=== PATIENT | female | born 1955 | race Caucasian/White ===

== ENCOUNTER → 2016-03-09 | Emergency (ER) | payer MEDICAID ==
[~2016-03-09] VITALS: Ht 162.6 cm; Wt 88.5 kg
[~2016-03-09] MED LIST: CT SWABBABLE VALVE TRANS SET 1 EA INFUS.SET MC ONE; HYDROMORPHONE INJ 2 MG/ML DISP.SYRIN IV ONE; HYDROMORPHONE INJ 2 MG/ML DISP.SYRIN ONE; IOHEXOL-350 100 ML VIAL IV ONE; IV NS 0.9% 250 ML IV ONE; KETOROLAC TROMETHAMINE INJ 30 MG/ML VIAL IV ONE; KETOROLAC TROMETHAMINE INJ 30 MG/ML VIAL ONE; ONDANSETRON HCL/PF 4 MG/2 ML VIAL IVP ONE; ONDANSETRON HCL/PF 4 MG/2 ML VIAL ONE
[2016-03-09 02:09] LABS: BASOPHILS % (AUTO) 0.5 % (0.0-2.0); DIFF TOTAL % 100 %; EOSINOPHILS % (AUTO) 12.9 % (0.0-6.0); HEMATOCRIT 38 % (33-45); HEMOGLOBIN 12.6 g/dL (11.5-14.8); LYMPHOCYTES # (AUTO) 2.7 /CMM (0.8-4.8); LYMPHOCYTES % (AUTO) 35.7 % (20.0-44.0); MEAN CORPUSCULAR HEMOGLOBIN 28 PG (26.0-33.0); MEAN CORPUSCULAR HGB CONC 33 g/dl (31.0-36.0); MEAN CORPUSCULAR VOLUME 84 fL (82-100); MONOCYTES # (AUTO) 0.5 /CMM (0.1-1.30); MONOCYTES % (AUTO) 6.1 % (2.0-12.0); NEUTROPHILS # (AUTO) 3.4 /CMM (1.8-8.9); NEUTROPHILS % (AUTO) 44.8 % (43.0-81.0); PLATELET COUNT (AUTO) 82 /CMM (150-450); RED BLOOD CELL COUNT(AUTO) 4.53 MIL/uL (4.0-5.2); WHITE BLOOD COUNT (AUTO) 7.6 K/uL (4.3-11.0)
[2016-03-09 02:26] LABS: CALCIUM, SERUM 8.4 mg/dL (8.5-10.1); CREATININE 0.6 mg/dL (0.6-1.3); POTASSIUM 3.7 mmol/L (3.5-5.1)
[2016-03-09 02:31] LABS: ALBUMIN 3.5 g/dL (3.4-5.0); BILIRUBIN,DIRECT 0.1 mg/dL (0.0-0.2); BILIRUBIN,TOTAL 0.4 mg/dL (0.2-1.0); INDIRECT BILIRUBIN 0.3 mg/dL (0.0-1.1); TOTAL PROTEIN, SERUM 7.6 g/dL (6.4-8.2)
[2016-03-09 03:24] LABS: KETONES,URINE NEGATIVE (NEGATIVE); LEUKOCYTE ESTERASE ,URINE NEGATIVE (NEGATIVE)
[2016-03-09 03:34] LABS: ADD UA MICROSCOPIC YES
[2016-03-09 03:44] LABS: ADD URINE CULTURE YES
[2016-03-09 03:45] LABS: RBC,URINE 0-2 /HPF (0-2)
[2016-03-09 04:03] LABS: ANISOCYTOSIS 1+; BAND % (MANUAL) 2 % (0.0-5.0); BASOPHILS % (MANUAL) 0 % (0.0-2.0); EOSINOPHILS % (MANUAL) 7 % (0-4); LYMPHOCYTES % (MANUAL) 35 % (16-48); PLATELET ESTIMATE DECREASED
[2016-03-09 06:33] LABS: INR 0.97 (0.87-1.13); PROTHROMBIN TIME 10.5 SECS (9.5-12.7)
[2016-03-09 06:46] VITALS: BP 131/66
== END | disposition home or self-care (01) ==
LOC: ER 00:47
DX: R10.11 Right upper quadrant pain (principal); D69.6 Thrombocytopenia, unspecified; K74.60 Unspecified cirrhosis of liver
CPT/HCPCS: 36415; 71010-TC; 76705-TC; 80048-TC; 80076-TC; 81000-TC; 83690-TC; 85025-TC; 85378-TC; 85385-TC; 85610-TC; 87086-TC; A4606; J1170; J1885; J2405; J7050; Q9967; Z7610

== ENCOUNTER 2016-04-14 23:20 | Emergency (ER) | payer MEDICAID, OTHER ==
[~2016-04-14] VITALS: Ht 162.6 cm; Wt 86.2 kg
[2016-04-14] MEDS ORDERED: IV NS 0.9% 500 ML IV ONE (23:51)
[2016-04-14] MEDS ORDERED: ONDANSETRON HCL/PF 4 MG/2 ML VIAL ONE (23:51)
[2016-04-14] MEDS ORDERED: MORPHINE SULFATE INJ 2 MG/ML DISP.SYRIN ONE (23:51)
[2016-04-14] MEDS ORDERED: IV SET PRIMARY 1 EA INFUS.SET MC ONE (23:51)
[2016-04-14 23:59] LABS: BASOPHILS % (AUTO) 0.4 % (0.0-2.0); DIFF TOTAL % 100 %; EOSINOPHILS # (AUTO) 0.6 /CMM (0.0-0.7); EOSINOPHILS % (AUTO) 7.9 % (0.0-6.0); HEMATOCRIT 40 % (33-45); LYMPHOCYTES # (AUTO) 2.9 /CMM (0.8-4.8); LYMPHOCYTES % (AUTO) 37.5 % (20.0-44.0); MEAN CORPUSCULAR HEMOGLOBIN 28 PG (26.0-33.0); MEAN CORPUSCULAR HGB CONC 33 g/dl (31.0-36.0); MEAN CORPUSCULAR VOLUME 84 fL (82-100); MONOCYTES # (AUTO) 0.5 /CMM (0.1-1.30); MONOCYTES % (AUTO) 6.5 % (2.0-12.0); NEUTROPHILS # (AUTO) 3.7 /CMM (1.8-8.9); NEUTROPHILS % (AUTO) 47.7 % (43.0-81.0); PLATELET COUNT (AUTO) 89 /CMM (150-450); RED BLOOD CELL COUNT(AUTO) 4.71 MIL/uL (4.0-5.2); WHITE BLOOD COUNT (AUTO) 7.7 K/uL (4.3-11.0)
[2016-04-15] MEDS ORDERED: ONDANSETRON HCL/PF 4 MG/2 ML VIAL IVP ONE
[2016-04-15] MEDS ORDERED: MORPHINE SULFATE INJ 2 MG/ML DISP.SYRIN IV ONE
[2016-04-15] MEDS ORDERED: IV NS 0.9% 500 ML BAG IV ONE
[2016-04-15 00:13] LABS: ALANINE AMINOTRANSFERASE 33 U/L (12-78); ALBUMIN 3.7 g/dL (3.4-5.0); ANION GAP 9 (5-14); ASPARTATE AMINOTRANSFERASE 27 U/L (15-37); BILIRUBIN,DIRECT 0.1 mg/dL (0.0-0.2); BILIRUBIN,TOTAL 0.4 mg/dL (0.2-1.0); CALCIUM, SERUM 8.7 mg/dL (8.5-10.1); CARBON DIOXIDE 31 mmol/L (21-32); CHLORIDE 105 mmol/L (98-107); CREATININE 0.6 mg/dL (0.6-1.3); GFR 101 mL/min (>60); GLUCOSE 126 mg/dL (74-106); INDIRECT BILIRUBIN 0.3 mg/dL (0.0-1.1); POTASSIUM 3.8 mmol/L (3.5-5.1); SODIUM SERUM 141 mmol/L (136-145); TOTAL PROTEIN, SERUM 7.9 g/dL (6.4-8.2); UREA NITROGEN, BLOOD 11 mg/dL (7-18)
[2016-04-15 00:16] LABS: TROPONIN I < 0.017 ng/mL (0.00-0.056)
[2016-04-15 00:26] LABS: INR 0.98 (0.87-1.13); PROTHROMBIN TIME 10.6 SECS (9.5-12.7)
[2016-04-15 00:30] LABS: EOSINOPHILS % (MANUAL) 9 % (0-4); LYMPHOCYTES % (MANUAL) 38 % (16-48); PLATELET ESTIMATE DECREASED
[2016-04-15 01:18] LABS: KETONES,URINE NEGATIVE (NEGATIVE); LEUKOCYTE ESTERASE ,URINE TRACE (NEGATIVE); PH,URINE 6.5 (5.0-8.0)
[2016-04-15 01:22] LABS: ADD UA MICROSCOPIC YES
[2016-04-15 01:28] LABS: ADD URINE CULTURE NO; RBC,URINE 0-2 /HPF (0-2)
[2016-04-15 01:36] VITALS: BP 140/70
== END 2016-04-15 01:39 | disposition home or self-care (01) ==
LOC: ER 23:25
DX: R10.84 Generalized abdominal pain (principal); K74.60 Unspecified cirrhosis of liver
CPT/HCPCS: 36415; 71010-TC; 80048-TC; 80076-TC; 81000-TC; 83690-TC; 84484-TC; 85025-TC; 85730-TC; A4606; J2270; J2405; J7040; Z7610

== ENCOUNTER 2016-07-23 15:01 | Emergency (ER) | payer OTHER ==
[~2016-07-23] VITALS: Ht 162.6 cm; Wt 102.1 kg
--- NOTE | 2016-07-23 15:10 | NUR ---
PT CAME IN FOR LEFT SIDED CHEST PAIN RADIATES TO NECK x 4 DAYS. DENIES TRAUMA. DENIES ANY OTHER SYMPTOMS. VSS. NAD NOTED. PT AAOX3. MD AT BS FOR EVAL. SAFETY AND COMFORT MEASURES PROVIDED. WILL MONITOR.
[2016-07-23] MEDS ORDERED: IBUPROFEN 400 MG TABLET ONE (15:29)
[2016-07-23] MEDS ORDERED: HYDROCODONE/APAP 5/325MG 1 EACH TABLET ONE (15:29)
[2016-07-23] MEDS ORDERED: IBUPROFEN 400 MG TABLET PO ONE (15:30)
[2016-07-23] MEDS ORDERED: HYDROCODONE/APAP 5/325MG 1 EACH TABLET PO ONE (15:30)
--- NOTE | 2016-07-23 15:37 | NUR ---
PT MEDICATED ORDERED.
--- NOTE | 2016-07-23 15:45 | NUR ---
TRUCK SERVICE TECHNICIAN AT BEDSIDE
--- NOTE | 2016-07-23 16:12 | NUR ---
DPatient discharged to home in stable condition. Written and verbal after care instructions given. Patient verbalizes understanding of instruction.
[2016-07-23 16:15] VITALS: BP 131/74
== END 2016-07-23 16:16 | disposition home or self-care (01) ==
LOC: ER 15:04
DX: M94.0 Chondrocostal junction syndrome [Tietze] (principal); K74.60 Unspecified cirrhosis of liver
CPT/HCPCS: 71010; 93005; 99284; A4606; Z7610

== ENCOUNTER 2016-10-19 00:41 | Emergency (ER) | payer OTHER ==
[~2016-10-19] VITALS: Ht 162.6 cm; Wt 89.8 kg
--- NOTE | 2016-10-19 01:40 | NUR ---
PT BIB SELF, PT C/O LEFT FLANK PAIN X 15 DAYS AND STATES THE PAIN IS MAKING HER NAUSOUS NOW, PT DENIES TRAUMA OR INJURY. PT AOX3 RR EVEN AND UNLABORED. NO SOB NOTED. NAD NOTED. NO NVD AT THIS TIME. PT GOWNED AND PLACED ON MONITOR WAITING FOR MD CEJA.
[2016-10-19 01:41] LABS: APPEARANCE,URINE CLEAR (CLEAR); BILIRUBIN,URINE 1+ (NEGATIVE); BLOOD, URINE 2+ Ery/uL (NEGATIVE); COLOR,URINE YELLOW (YELLOW); KETONES,URINE NEGATIVE (NEGATIVE); LEUKOCYTE ESTERASE ,URINE NEGATIVE (NEGATIVE); NITRITE, URINE NEGATIVE (NEGATIVE); PROTEIN,URINE TRACE mg/dl (NEGATIVE); UGLUCOSE NEGATIVE (NEGATIVE); UROBILINOGEN,URINE 0.2 EU/dL (0.2)
--- NOTE | 2016-10-19 01:45 | NUR ---
URINE COLLECTED. CALLED LAB FOR WEAPONS SYSTEM INSTRUMENT MECHANIC
[2016-10-19] MEDS ORDERED: ONDANSETRON HCL/PF 4 MG/2 ML VIAL ONE (01:51)
[2016-10-19] MEDS ORDERED: MORPHINE SULFATE INJ 4 MG/ML DISP.SYRIN ONE (01:51)
--- NOTE | 2016-10-19 01:51 | NUR ---
PT TO CT.
[2016-10-19 01:55] LABS: BACTERIA,URINE None seen /HPF (None Seen); MUCUS,URINE Few /LPF (None Seen); SQUAMOUS EPITHELIAL CELL,UR Moderate /HPF (None Seen); WBC,URINE 20-30 /HPF (0-3)
[2016-10-19 01:55] LABS: BASOPHILS % (AUTO) 0.6 % (0.0-2.0); EOSINOPHILS # (AUTO) 0.7 /CMM (0.0-0.7); EOSINOPHILS % (AUTO) 9.6 % (0.0-6.0); HEMATOCRIT 40 % (33-45); HEMOGLOBIN 13.4 g/dL (11.5-14.8); LYMPHOCYTES # (AUTO) 2.7 /CMM (0.8-4.8); LYMPHOCYTES % (AUTO) 36.2 % (20.0-44.0); MEAN CORPUSCULAR HEMOGLOBIN 28 PG (26.0-33.0); MEAN CORPUSCULAR HGB CONC 33 g/dl (31.0-36.0); MEAN CORPUSCULAR VOLUME 85 fL (82-100); MONOCYTES # (AUTO) 0.7 /CMM (0.1-1.30); MONOCYTES % (AUTO) 8.8 % (2.0-12.0); NEUTROPHILS # (AUTO) 3.4 /CMM (1.8-8.9); NEUTROPHILS % (AUTO) 44.8 % (43.0-81.0); PLATELET COUNT (AUTO) 89 /CMM (150-450); RDW COEFFICIENT OF VARIATION 14.5 (11.5-15.0); RED BLOOD CELL COUNT(AUTO) 4.73 MIL/uL (4.0-5.2); WHITE BLOOD COUNT (AUTO) 7.6 K/uL (4.3-11.0)
[2016-10-19] MEDS ORDERED: MORPHINE SULFATE INJ 2 MG/ML DISP.SYRIN IV ONE (02:00)
[2016-10-19] MEDS ORDERED: ONDANSETRON HCL/PF 4 MG/2 ML VIAL IVP ONE (02:00)
[2016-10-19] MEDS ORDERED: IV NS 0.9% 1,000 ML BAG IV ONE (02:00)
[2016-10-19 02:04] LABS: CALCIUM, SERUM 8.6 mg/dL (8.5-10.1); CREATININE 0.7 mg/dL (0.6-1.3); POTASSIUM 3.9 mmol/L (3.5-5.1)
--- NOTE | 2016-10-19 02:08 | NUR ---
PT RETURNED FROM CT.
[2016-10-19 02:10] LABS: ALBUMIN 3.8 g/dL (3.4-5.0); BILIRUBIN,DIRECT 0.1 mg/dL (0.0-0.2); BILIRUBIN,TOTAL 0.5 mg/dL (0.2-1.0)
[2016-10-19 02:49] LABS: EOSINOPHILS % (MANUAL) 8 % (0-4); LYMPHOCYTES % (MANUAL) 34 % (16-48); MONOCYTES % (MANUAL) 8 % (0-11.0); NEUTROPHILS % (MANUAL) 49 (42-76); REACTIVE LYMPHOCYTES 1 % (0-0)
--- NOTE | 2016-10-19 03:14 | NUR ---
IV removed. Catheter intact and site benign. Pressure and 4x4 applied to site. No bleeding noted. Patient discharged to home in stable condition. Written and verbal after care instructions given. Patient verbalizes understanding of instruction. ambulatory with a steady gait. instructed not to drive. pt verbalize understanding. accompanied by son
[2016-10-19 03:16] VITALS: BP 134/67
== END 2016-10-19 03:16 | disposition home or self-care (01) ==
LOC: ER 00:45
DX: M54.9 Dorsalgia, unspecified (principal); K74.60 Unspecified cirrhosis of liver
CPT/HCPCS: 36415; 71250-TC; 80048-TC; 80076-TC; 81000-TC; 83690-TC; 85025-TC; A4606; J2270; J2405; J7030; Z7610

== ENCOUNTER 2016-11-08 00:53 | Emergency (ER) | payer OTHER ==
[~2016-11-08] VITALS: Ht 167.6 cm; Wt 81.6 kg
--- NOTE | 2016-11-08 01:30 | NUR ---
PT CAME IN FOR HEADACHE X 2 DAYS WITH NAUSEA. SEEN BY MD FOR EVAL. VSS. SAFETY AND COMFORT MEASURES PROVIDED. WILL MONITOR.
--- NOTE | 2016-11-08 01:45 | NUR ---
IV ACCESS STARTED. PT MEDICATED ORDERED.
--- NOTE | 2016-11-08 02:36 | NUR ---
IV removed. Catheter intact and site benign. Pressure and 4x4 applied to site. No bleeding noted.
--- NOTE | 2016-11-08 02:37 | NUR ---
Patient discharged to home in stable condition. Written and verbal after care instructions given. Patient verbalizes understanding of instruction.
[2016-11-08 02:42] VITALS: BP 129/69
--- NOTE | 2016-11-10 07:29 | NUR ---
LATE ENTRY...........PULLED OUT MEDS ORDERED; INSTEAD OF REGLAN I TOOK OUT ZOFRAN. REACHED PT'S BEDSIDE WITH THE DOCTOR'S ORDER PAPERWORK AND WHEN I CROSS CHECKED IT ONE MORE TIME I SAW REGLAN INSTEAD OF THE ZOFRAN THAT I HAD PULLED OUT. I THEN REMEMBERED THE REGLAN I PREVIOUSLY HAD IN MY POCKET; SO I USED THAT RELGLAN TO MATCH THE ORDER AND MY INTENTION WAS TO WASTE THE ZOFRAN IN THE OMNICELL AND REMOVE THE REGLAN TO CHARGE PT BUT I FORGOT TO DO THAT.
== END 2016-11-08 02:43 | disposition home or self-care (01) ==
LOC: ER 00:54
DX: R51 Headache (principal); K74.60 Unspecified cirrhosis of liver
CPT/HCPCS: 70450-TC; A4606; J1100; J1200; J2405; J7030; J7060; Z7610

== ENCOUNTER 2017-03-29 00:58 | Emergency (ER) | payer OTHER ==
[~2017-03-29] VITALS: Ht 152.4 cm; Wt 90.7 kg
--- NOTE | 2017-03-29 01:10 | NUR ---
BB SELF FROM HOME WITH C/O OF COUGH AND CONGESTION X10 DAYS. PT STATES SHE ALSO HAS A SOAR THROAT X10 DAYS. PT ALSO STATES N/V W/ 6 EPISODES OF VOMIT SINCE YESTERDAY. PT COMPLAINS OF RLQ ABD PAIN 5/10. PT IS GOWNED AND ON THE MONITOR. RESP EVEN AND NONE LABORED. SKIN WARM AND WNL. NO S/S OF ACUTE DISTRESS NOTED. VSS. AWAITING MD FOR EVAL.
[2017-03-29] MEDS ORDERED: KETOROLAC TROMETHAMINE INJ 30 MG/ML VIAL IV ONE (01:30)
[2017-03-29] MEDS ORDERED: FAMOTIDINE/PF INJ 20 MG/2 ML VIAL IV ONE ×2 (01:30→01:49)
[2017-03-29] MEDS ORDERED: IV NS 0.9% 1,000 ML BAG IV ONE (01:30)
[2017-03-29] MEDS ORDERED: ONDANSETRON HCL/PF 4 MG/2 ML VIAL IVP ONE (01:30)
[2017-03-29] MEDS ORDERED: KETOROLAC TROMETHAMINE INJ 30 MG/ML VIAL ONE (01:49)
[2017-03-29] MEDS ORDERED: ONDANSETRON HCL/PF 4 MG/2 ML VIAL ONE (01:49)
--- NOTE | 2017-03-29 01:55 | NUR ---
Patient is resting comfortably in bed with eyes open. VSS
--- NOTE | 2017-03-29 02:00 | NUR ---
CRUTCH MAKER BEDSIDE
[2017-03-29 02:15] LABS: BASOPHILS % (AUTO) 0.4 % (0.0-2.0); EOSINOPHILS % (AUTO) 10.7 % (0.0-6.0); HEMATOCRIT 39 % (33-45); HEMOGLOBIN 13.1 g/dL (11.5-14.8); LYMPHOCYTES # (AUTO) 3.4 /CMM (0.8-4.8); LYMPHOCYTES % (AUTO) 34.6 % (20.0-44.0); MEAN CORPUSCULAR HEMOGLOBIN 28 PG (26.0-33.0); MEAN CORPUSCULAR HGB CONC 34 g/dl (31.0-36.0); MEAN CORPUSCULAR VOLUME 84 fL (82-100); MONOCYTES # (AUTO) 0.6 /CMM (0.1-1.30); MONOCYTES % (AUTO) 6.1 % (2.0-12.0); NEUTROPHILS # (AUTO) 4.7 /CMM (1.8-8.9); NEUTROPHILS % (AUTO) 48.2 % (43.0-81.0); PLATELET COUNT (AUTO) 100 /CMM (150-450); RDW COEFFICIENT OF VARIATION 13.7 (11.5-15.0); RED BLOOD CELL COUNT(AUTO) 4.61 MIL/uL (4.0-5.2); WHITE BLOOD COUNT (AUTO) 9.8 K/uL (4.3-11.0)
[2017-03-29 02:20] LABS: APPEARANCE,URINE CLEAR (CLEAR); BILIRUBIN,URINE NEGATIVE (NEGATIVE); BLOOD, URINE 2+ Ery/uL (NEGATIVE); COLOR,URINE YELLOW (YELLOW); KETONES,URINE TRACE (NEGATIVE); LEUKOCYTE ESTERASE ,URINE NEGATIVE (NEGATIVE); NITRITE, URINE NEGATIVE (NEGATIVE); PH,URINE 6.5 (5.0-8.0); PROTEIN,URINE 1+ mg/dl (NEGATIVE); UGLUCOSE NEGATIVE (NEGATIVE); UROBILINOGEN,URINE 0.2 EU/dL (0.2)
[2017-03-29 02:29] LABS: BACTERIA,URINE None seen /HPF (None Seen); SQUAMOUS EPITHELIAL CELL,UR Few /HPF (None Seen)
[2017-03-29 02:39] LABS: ALBUMIN 3.7 g/dL (3.4-5.0); BILIRUBIN,DIRECT 0.2 mg/dL (0.0-0.2); BILIRUBIN,TOTAL 0.6 mg/dL (0.2-1.0); CREATININE 0.6 mg/dL (0.6-1.3); POTASSIUM 3.6 mmol/L (3.5-5.1); TOTAL PROTEIN, SERUM 7.9 g/dL (6.4-8.2)
--- NOTE | 2017-03-29 03:39 | NUR ---
Patient discharged to home in stable condition. Written and verbal after care instructions along with Rx given. Patient verbalizes understanding of instruction.IV removed. Catheter intact and site benign. Pressure and 4x4 applied to site. No bleeding noted. Pt ambulated with steady gait out of ER.
[2017-03-29 03:40] VITALS: BP 141/94
== END 2017-03-29 03:41 | disposition home or self-care (01) ==
LOC: ER 01:01
DX: B34.9 Viral infection, unspecified (principal); J06.9 Acute upper respiratory infection, unspecified; H65.92 Unspecified nonsuppurative otitis media, left ear; R11.2 Nausea with vomiting, unspecified
CPT/HCPCS: 36415; 71045; 80048; 80076; 81001; 83690; 85025; 87070; 87804 ×2; 87880; 96361; 96374; 96375; 99285; A4606; J1885; J2405; J3490; J7030; Z7610; 81000-TC; 86403-TC; 87400

== ENCOUNTER 2017-05-23 11:49 | Emergency (ER) | payer OTHER ==
[~2017-05-23] VITALS: Ht 152.4 cm; Wt 90.7 kg
--- NOTE | 2017-05-23 12:02 | NUR ---
Patient to ed dt left flank pain, sharp, 10/10 x 2 days worst today. Patient is awake and alert, appears in no distress. Respuration evena dn unlabored. Denies nausea nor vomitting. Patient is afebrile. vss. Mrci at bs
[2017-05-23 12:14] LABS: APPEARANCE,URINE Slightly Cloudy (CLEAR); BILIRUBIN,URINE Negative (NEGATIVE); BLOOD, URINE Moderate Ery/uL (NEGATIVE); COLOR,URINE Yellow (YELLOW); KETONES,URINE Negative (NEGATIVE); LEUKOCYTE ESTERASE ,URINE Trace (NEGATIVE); NITRITE, URINE Negative (NEGATIVE); PROTEIN,URINE Trace mg/dl (NEGATIVE); UGLUCOSE Negative (NEGATIVE); UROBILINOGEN,URINE 0.2 EU/dL (0.2)
[2017-05-23] MEDS ORDERED: ONDANSETRON HCL/PF 4 MG/2 ML VIAL ONE (12:14)
[2017-05-23] MEDS ORDERED: MORPHINE SULFATE INJ 4 MG/ML DISP.SYRIN ONE (12:15)
[2017-05-23] MEDS ORDERED: IOHEXOL-300 100 ML VIAL IV ONE (12:19)
[2017-05-23 12:21] LABS: BACTERIA,URINE Few /HPF (None Seen); SQUAMOUS EPITHELIAL CELL,UR Moderate /HPF (None Seen)
[2017-05-23] MEDS ORDERED: CT SWABBABLE VALVE TRANS SET 1 EA INFUS.SET MC ONE (12:21)
[2017-05-23] MEDS ORDERED: IV NS 0.9% 250 ML IV ONE (12:21)
[2017-05-23 12:22] LABS: CALCIUM, SERUM 8.8 mg/dL (8.5-10.1); CREATININE 0.6 mg/dL (0.6-1.3)
[2017-05-23 12:25] LABS: BASOPHILS % (AUTO) 0.4 % (0.0-2.0); EOSINOPHILS % (AUTO) 8.6 % (0.0-6.0); HEMATOCRIT 39 % (33-45); HEMOGLOBIN 13.2 g/dL (11.5-14.8); LYMPHOCYTES # (AUTO) 2.2 /CMM (0.8-4.8); LYMPHOCYTES % (AUTO) 27.2 % (20.0-44.0); MEAN CORPUSCULAR HGB CONC 34 g/dl (31.0-36.0); MEAN CORPUSCULAR VOLUME 84 fL (82-100); MONOCYTES # (AUTO) 0.5 /CMM (0.1-1.30); NEUTROPHILS # (AUTO) 4.6 /CMM (1.8-8.9); NEUTROPHILS % (AUTO) 57.8 % (43.0-81.0); PLATELET COUNT (AUTO) 88 /CMM (150-450); RED BLOOD CELL COUNT(AUTO) 4.64 MIL/uL (4.0-5.2)
[2017-05-23 12:26] LABS: INR 0.96 (0.85-1.15)
[2017-05-23 12:27] LABS: ALBUMIN 3.7 g/dL (3.4-5.0); BILIRUBIN,DIRECT 0.2 mg/dL (0.0-0.2); BILIRUBIN,TOTAL 0.6 mg/dL (0.2-1.0); TOTAL PROTEIN, SERUM 7.7 g/dL (6.4-8.2)
[2017-05-23] MEDS ORDERED: IV NS 0.9% 1,000 ML BAG IV ONE (12:30)
[2017-05-23] MEDS ORDERED: ONDANSETRON HCL/PF 4 MG/2 ML VIAL IVP ONE (12:30)
[2017-05-23] MEDS ORDERED: MORPHINE SULFATE INJ 2 MG/ML DISP.SYRIN IV ONE (12:30)
[2017-05-23 12:46] LABS: NEUTROPHILS % (MANUAL) 55 (42-76)
[2017-05-23 12:47] LABS: EOSINOPHILS % (MANUAL) 10 % (0-4); LYMPHOCYTES % (MANUAL) 27 % (16-48); MONOCYTES % (MANUAL) 8 % (0-11.0)
[2017-05-23 13:32] VITALS: BP 134/80
--- NOTE | 2017-05-23 13:32 | NUR ---
Patient discharged to home in stable condition. Written and verbal after care instructions given. Patient verbalizes understanding of instruction.
== END 2017-05-23 13:34 | disposition home or self-care (01) ==
LOC: ER 11:50
DX: K57.92 Diverticulitis of intestine, part unspecified, without perforation or abscess without bleeding (principal); N39.0 Urinary tract infection, site not specified; D69.6 Thrombocytopenia, unspecified; K74.60 Unspecified cirrhosis of liver
CPT/HCPCS: 36415; 80048-TC; 80076-TC; 81000-TC; 83690-TC; 85025-TC; 85730-TC; 87086-TC; A4606; J2270; J2405; J7030; J7050; Q9967; Z7610

== ENCOUNTER 2017-06-07 12:14 | Emergency (ER) | payer OTHER ==
[~2017-06-07] VITALS: Ht 152.4 cm; Wt 90.7 kg
[2017-06-07] MEDS ORDERED: KETOROLAC TROMETHAMINE INJ 30 MG/ML VIAL ONE (12:57)
[2017-06-07] MEDS ORDERED: CYCLOBENZAPRINE 10 MG TABLET ONE (12:58)
[2017-06-07] MEDS ORDERED: TRAMADOL HCL 50 MG TABLET ONE (12:58)
[2017-06-07] MEDS: KETOROLAC TROMETHAMINE INJ 60 MG/2 ML VIAL IM ONE (13:04)
[2017-06-07] MEDS ORDERED: ONDANSETRON 4 MG TAB.RAPDIS ONE (13:06)
[2017-06-07] MEDS: ONDANSETRON 4 MG TAB.RAPDIS SL ONE (13:24)
[2017-06-07] MEDS: CYCLOBENZAPRINE 10 MG TABLET PO ONE (13:27)
[2017-06-07] MEDS: TRAMADOL HCL 50 MG TABLET PO ONE (13:27)
[2017-06-07 13:41] VITALS: BP 127/64
== END 2017-06-07 14:35 | disposition home or self-care (01) ==
LOC: ER 12:15
DX: M25.512 Pain in left shoulder (principal); R51 Headache; K74.60 Unspecified cirrhosis of liver; W01.198A Fall on same level from slipping, tripping and stumbling with subsequent striking against other object, initial encounter; Y93.89 Activity, other specified; Y92.89 Other specified places as the place of occurrence of the external cause; Y99.8 Other external cause status
CPT/HCPCS: 73030-TC; A4606; J1885; Q0162; Z7610

== ENCOUNTER 2017-08-08 03:45 | Emergency (ER) | payer OTHER ==
[2017-08-08] MEDS ORDERED: KETOROLAC TROMETHAMINE INJ 60 MG/2 ML VIAL IM ONE ×2 (06:30→06:49)
[2017-08-08] MEDS ORDERED: ONDANSETRON 4 MG TAB.RAPDIS SL ONE (06:30)
[2017-08-08] MEDS ORDERED: AMOXICILLIN TRIHYDRATE 250 MG CAPSULE PO ONE (06:30)
[2017-08-08] MEDS ORDERED: AMOXICILLIN TRIHYDRATE 250 MG CAPSULE ONE (06:49)
[2017-08-08] MEDS ORDERED: ONDANSETRON 4 MG TAB.RAPDIS ONE (06:49)
== END 2017-08-08 07:01 | disposition home or self-care (01) ==
LOC: ER 03:45
DX: K02.9 Dental caries, unspecified (principal)
CPT/HCPCS: 96372; 99283; J1885; Q0162

== ENCOUNTER 2017-10-24 21:49 | Emergency (ER) | payer OTHER ==
[~2017-10-24] VITALS: Ht 162.6 cm; Wt 90.7 kg
[2017-10-24] MEDS ORDERED: ONDANSETRON HCL/PF 4 MG/2 ML VIAL IVP ONE (23:00)
[2017-10-24] MEDS ORDERED: MORPHINE SULFATE INJ 2 MG/ML DISP.SYRIN IV ONE (23:00)
[2017-10-24] MEDS ORDERED: MAG HYDROX/AL HYDROX/SIMETH 30 ML UDC PO ONE (23:00)
[2017-10-24] MEDS ORDERED: PANTOPRAZOLE 40 MG VIAL IV ONE (23:00)
[2017-10-24] MEDS ORDERED: MAG HYDROX/AL HYDROX/SIMETH 30 ML UDC ONE (23:05)
[2017-10-24] MEDS ORDERED: ONDANSETRON HCL/PF 4 MG/2 ML VIAL ONE (23:05)
[2017-10-24] MEDS ORDERED: PANTOPRAZOLE 40 MG VIAL ONE (23:05)
[2017-10-24] MEDS ORDERED: MORPHINE SULFATE INJ 4 MG/ML DISP.SYRIN ONE (23:06)
[2017-10-24 23:11] LABS: BASOPHILS % (AUTO) 0.6 % (0.0-2.0); EOSINOPHILS % (AUTO) 11.3 % (0.0-6.0); HEMATOCRIT 38 % (33-45); HEMOGLOBIN 12.4 g/dL (11.5-14.8); LYMPHOCYTES # (AUTO) 2.3 /CMM (0.8-4.8); LYMPHOCYTES % (AUTO) 35.8 % (20.0-44.0); MEAN CORPUSCULAR HEMOGLOBIN 28 PG (26.0-33.0); MEAN CORPUSCULAR HGB CONC 32 g/dl (31.0-36.0); MEAN CORPUSCULAR VOLUME 86 fL (82-100); MONOCYTES # (AUTO) 0.5 /CMM (0.1-1.30); MONOCYTES % (AUTO) 7.9 % (2.0-12.0); NEUTROPHILS # (AUTO) 2.9 /CMM (1.8-8.9); NEUTROPHILS % (AUTO) 44.4 % (43.0-81.0); PLATELET COUNT (AUTO) 78 /CMM (150-450); RDW COEFFICIENT OF VARIATION 14.1 (11.5-15.0); RED BLOOD CELL COUNT(AUTO) 4.43 MIL/uL (4.0-5.2); WHITE BLOOD COUNT (AUTO) 6.5 K/uL (4.3-11.0)
[2017-10-24 23:24] LABS: INR 0.96 (0.87-1.13)
[2017-10-24 23:34] LABS: CALCIUM, SERUM 8.4 mg/dL (8.5-10.1); CARBON DIOXIDE 27 mmol/L (21-32); CHLORIDE 110 mmol/L (98-107); CREATININE 0.7 mg/dL (0.6-1.3); GLUCOSE 102 mg/dL (74-106); POTASSIUM 4.2 mmol/L (3.5-5.1); SODIUM SERUM 146 mmol/L (136-145); UREA NITROGEN, BLOOD 12 mg/dL (7-18)
[2017-10-24 23:39] LABS: ALANINE AMINOTRANSFERASE 34 U/L (12-78); ALBUMIN 3.4 g/dL (3.4-5.0); ALKALINE PHOSPHATASE 144 U/L (46-116); ASPARTATE AMINOTRANSFERASE 33 U/L (15-37); BILIRUBIN,DIRECT 0.1 mg/dL (0.0-0.2); BILIRUBIN,TOTAL 0.3 mg/dL (0.2-1.0); LIPASE 152 U/L (73-393); TOTAL PROTEIN, SERUM 7.1 g/dL (6.4-8.2); TROPONIN I < 0.017 ng/mL (0.00-0.056)
[2017-10-24 23:56] LABS: EOSINOPHILS % (MANUAL) 10 % (0-4); LYMPHOCYTES % (MANUAL) 36 % (16-48); MONOCYTES % (MANUAL) 3 % (0-11.0); NEUTROPHILS % (MANUAL) 51 (42-76)
[2017-10-25 01:29] VITALS: BP 142/97
== END 2017-10-25 01:31 | disposition home or self-care (01) ==
LOC: ER 21:52
DX: D69.6 Thrombocytopenia, unspecified (principal); R16.1 Splenomegaly, not elsewhere classified; R10.12 Left upper quadrant pain; E66.9 Obesity, unspecified; Z68.34 Body mass index [BMI] 34.0-34.9, adult
CPT/HCPCS: 36415; 74176; 80048; 80076; 83690; 84484; 85025; 85730; 93005; 96374; 96375; 99285; A4606; C9113; J2270; J2405; Z7610

== ENCOUNTER 2017-10-29 14:48 | Emergency (ER) | payer OTHER ==
[~2017-10-29] VITALS: Ht 162.6 cm; Wt 109.3 kg
--- NOTE | 2017-10-29 15:10 | NUR ---
L L Q ABD PAIN X 1 WEEK, RASH TO L ARM. NAD NOTED, VSS, RESP EVEN AND UNLABORED, PT WAS PUT ON MONITOR, WAITING FOR MD CEJA
[2017-10-29 16:25] LABS: BASOPHILS % (AUTO) 0.5 % (0.0-2.0); EOSINOPHILS % (AUTO) 9.9 % (0.0-6.0); HEMATOCRIT 40 % (33-45); HEMOGLOBIN 13.1 g/dL (11.5-14.8); LYMPHOCYTES # (AUTO) 2.1 /CMM (0.8-4.8); LYMPHOCYTES % (AUTO) 27.1 % (20.0-44.0); MEAN CORPUSCULAR HEMOGLOBIN 28 PG (26.0-33.0); MEAN CORPUSCULAR HGB CONC 33 g/dl (31.0-36.0); MEAN CORPUSCULAR VOLUME 84 fL (82-100); MONOCYTES # (AUTO) 0.6 /CMM (0.1-1.30); MONOCYTES % (AUTO) 7.6 % (2.0-12.0); NEUTROPHILS # (AUTO) 4.2 /CMM (1.8-8.9); NEUTROPHILS % (AUTO) 54.9 % (43.0-81.0); PLATELET COUNT (AUTO) 90 /CMM (150-450); RDW COEFFICIENT OF VARIATION 13.5 (11.5-15.0); RED BLOOD CELL COUNT(AUTO) 4.77 MIL/uL (4.0-5.2); WHITE BLOOD COUNT (AUTO) 7.7 K/uL (4.3-11.0)
[2017-10-29 16:27] LABS: APPEARANCE,URINE Clear (CLEAR); BILIRUBIN,URINE Negative (NEGATIVE); BLOOD, URINE Moderate Ery/uL (NEGATIVE); COLOR,URINE Yellow (YELLOW); KETONES,URINE Trace (NEGATIVE); LEUKOCYTE ESTERASE ,URINE Negative (NEGATIVE); NITRITE, URINE Negative (NEGATIVE); PH,URINE 5.5 (5.0-8.0); PROTEIN,URINE Negative (NEGATIVE); UGLUCOSE Negative (NEGATIVE)
[2017-10-29 16:31] LABS: BACTERIA,URINE Rare /HPF (None Seen); RBC,URINE 0-2 /HPF (0-2); WBC,URINE 0-2 /HPF (0-3)
[2017-10-29 16:32] LABS: SQUAMOUS EPITHELIAL CELL,UR Few /HPF (None Seen)
[2017-10-29 16:34] LABS: CALCIUM, SERUM 8.3 mg/dL (8.5-10.1); CREATININE 0.7 mg/dL (0.6-1.3); POTASSIUM 4.2 mmol/L (3.5-5.1)
[2017-10-29 16:40] LABS: ALBUMIN 3.5 g/dL (3.4-5.0); BILIRUBIN,DIRECT 0.1 mg/dL (0.0-0.2); BILIRUBIN,TOTAL 0.4 mg/dL (0.2-1.0); TOTAL PROTEIN, SERUM 7.1 g/dL (6.4-8.2)
[2017-10-29] MEDS ORDERED: oxyCODONE/APAP (5/325 MG) 1 UDTAB TABLET PO ONE (17:00)
[2017-10-29] MEDS ORDERED: IBUPROFEN 600 MG TABLET PO ONE ×2 (17:00→17:16)
[2017-10-29] MEDS ORDERED: oxyCODONE/APAP (5/325 MG) 1 UDTAB TABLET ONE (17:16)
[2017-10-29] MEDS ORDERED: LIDOCAINE VISCOUS 2% UD 15 ML UDC MM ONE (17:30)
[2017-10-29] MEDS ORDERED: LIDOCAINE VISCOUS 2% UD 15 ML UDC ONE (17:40)
[2017-10-29 17:56] VITALS: BP 138/95
--- NOTE | 2017-10-29 17:59 | NUR ---
Patient discharged to home in stable condition. Written and verbal after care instructions given. Patient verbalizes understanding of instruction.
[2017-10-29 18:37] LABS: BAND % (MANUAL) 6 % (0.0-5.0); EOSINOPHILS % (MANUAL) 11 % (0-4); LYMPHOCYTES % (MANUAL) 32 % (16-48); MONOCYTES % (MANUAL) 5 % (0-11.0); NEUTROPHILS % (MANUAL) 46 (42-76)
== END 2017-10-29 17:59 | disposition home or self-care (01) ==
LOC: ER 14:53
DX: R10.32 Left lower quadrant pain (principal); R11.2 Nausea with vomiting, unspecified
CPT/HCPCS: 36415; 74176; 80048; 80076; 81001; 83690; 85025; 87086; 99285; A4606; Z7610; 81000-TC

== ENCOUNTER 2017-11-09 16:41 | Emergency (ER) | payer OTHER ==
[~2017-11-09] VITALS: Ht 162.6 cm; Wt 98.9 kg
--- NOTE | 2017-11-09 16:45 | NUR ---
AAOX3, CAME TO ER C/O L SIDED HEADACHE THAT STARTED W/ NECK PAIN THAT STARTED LAST NIGHT NAUSEA AND VOMITTED 10 TIMES TODAY. RESP IS EVEN AND UNLABORED WITH NAD NOTED. AWAITING MD FOR EVAL.
[2017-11-09] MEDS ORDERED: KETOROLAC TROMETHAMINE INJ 30 MG/ML VIAL ONE (17:27)
[2017-11-09] MEDS ORDERED: METOCLOPRAMIDE HCL 10 MG/2 ML VIAL ONE (17:27)
[2017-11-09] MEDS: METOCLOPRAMIDE HCL 10 MG/2 ML VIAL IM ONE (17:31)
[2017-11-09] MEDS: KETOROLAC TROMETHAMINE INJ 30 MG/ML VIAL IM ONE (17:32)
--- NOTE | 2017-11-09 17:32 | NUR ---
PATIENT TRANSPORTED FOR CT VIA GURNEY.
--- NOTE | 2017-11-09 18:17 | NUR ---
Patient discharged to home in stable condition. Written and verbal after care instructions given. Patient verbalizes understanding of instruction.
[2017-11-09 18:18] VITALS: BP 135/81
== END 2017-11-09 18:19 | disposition home or self-care (01) ==
LOC: ER 16:45
DX: R51 Headache (principal); M54.12 Radiculopathy, cervical region
CPT/HCPCS: 70450-TC; 72125-TC; A4606; J1885; J2765; Z7610

== ENCOUNTER 2017-12-05 09:42 | Emergency (ER) | payer OTHER ==
[~2017-12-05] VITALS: Ht 149.9 cm; Wt 97.5 kg
[2017-12-05 10:18] LABS: APPEARANCE,URINE Clear (CLEAR); BILIRUBIN,URINE Negative (NEGATIVE); BLOOD, URINE Moderate Ery/uL (NEGATIVE); COLOR,URINE Yellow (YELLOW); KETONES,URINE Negative (NEGATIVE); LEUKOCYTE ESTERASE ,URINE Negative (NEGATIVE); NITRITE, URINE Negative (NEGATIVE); PH,URINE 5.5 (5.0-8.0); PROTEIN,URINE Negative (NEGATIVE); UGLUCOSE Negative (NEGATIVE); UROBILINOGEN,URINE 0.2 EU/dL (0.2)
[2017-12-05 10:19] LABS: BASOPHILS % (AUTO) 0.6 % (0.0-2.0); EOSINOPHILS % (AUTO) 11.5 % (0.0-6.0); HEMATOCRIT 43 % (33-45); HEMOGLOBIN 13.9 g/dL (11.5-14.8); LYMPHOCYTES # (AUTO) 2.1 /CMM (0.8-4.8); LYMPHOCYTES % (AUTO) 28.9 % (20.0-44.0); MEAN CORPUSCULAR HGB CONC 33 g/dl (31.0-36.0); MEAN CORPUSCULAR VOLUME 85 fL (82-100); MONOCYTES # (AUTO) 0.5 /CMM (0.1-1.30); MONOCYTES % (AUTO) 6.7 % (2.0-12.0); NEUTROPHILS # (AUTO) 3.8 /CMM (1.8-8.9); NEUTROPHILS % (AUTO) 52.3 % (43.0-81.0); PLATELET COUNT (AUTO) 87 /CMM (150-450); RDW COEFFICIENT OF VARIATION 13.3 (11.5-15.0); RED BLOOD CELL COUNT(AUTO) 4.99 MIL/uL (4.0-5.2); WHITE BLOOD COUNT (AUTO) 7.2 K/uL (4.3-11.0)
[2017-12-05 10:29] LABS: CALCIUM, SERUM 8.6 mg/dL (8.5-10.1); CREATININE 0.7 mg/dL (0.6-1.3); POTASSIUM 3.7 mmol/L (3.5-5.1)
[2017-12-05 10:32] LABS: BACTERIA,URINE Moderate /HPF (None Seen); MUCUS,URINE Many /LPF (None Seen); SQUAMOUS EPITHELIAL CELL,UR Few /HPF (None Seen); WBC,URINE 0-2 /HPF (0-3)
[2017-12-05 10:35] LABS: ALBUMIN 3.7 g/dL (3.4-5.0); BILIRUBIN,DIRECT 0.1 mg/dL (0.0-0.2); BILIRUBIN,TOTAL 0.5 mg/dL (0.2-1.0); TOTAL PROTEIN, SERUM 7.7 g/dL (6.4-8.2)
[2017-12-05] MEDS ORDERED: MAG HYDROX/AL HYDROX/SIMETH 30 ML UDC ONE (10:44)
[2017-12-05] MEDS ORDERED: LIDOCAINE VISCOUS 2% UD 15 ML UDC ONE (10:45)
[2017-12-05] MEDS ORDERED: MAG HYDROX/AL HYDROX/SIMETH 30 ML UDC PO ONE (11:00)
[2017-12-05] MEDS ORDERED: LIDOCAINE SOLN 4% 50 ML BOTTLE TP ONE (11:00)
[2017-12-05] MEDS ORDERED: LIDOCAINE VISCOUS 2% UD 15 ML UDC MM ONE (11:00)
[2017-12-05] MEDS ORDERED: MORPHINE SULFATE INJ 2 MG/ML DISP.SYRIN IV ONE (11:30)
--- NOTE | 2017-12-05 11:30 | NUR ---
updated and reiterated plan of care with Grupo (industrial staff nurse).
[2017-12-05] MEDS ORDERED: MORPHINE SULFATE INJ 4 MG/ML DISP.SYRIN ONE (11:45)
[2017-12-05 12:11] LABS: EOSINOPHILS % (MANUAL) 6 % (0-4); LYMPHOCYTES % (MANUAL) 31 % (16-48); MONOCYTES % (MANUAL) 4 % (0-11.0); NEUTROPHILS % (MANUAL) 59 (42-76)
[2017-12-05] MEDS ORDERED: FAMOTIDINE (20 MG) 20 MG TABLET PO ONE (12:30)
--- NOTE | 2017-12-05 12:30 | NUR ---
Appears comfortable states pain "better"o acute changes await MD re-evaluation
[2017-12-05] MEDS ORDERED: FAMOTIDINE/PF INJ 20 MG/2 ML VIAL IV ONE (12:40)
[2017-12-05] MEDS ORDERED: FAMOTIDINE (20 MG) 20 MG TABLET ONE (12:45)
[2017-12-05 12:48] VITALS: BP 146/69
--- NOTE | 2017-12-05 12:58 | NUR ---
Pt for discharge ACI given- Home ambulatory VSS No acute changes
== END 2017-12-05 12:57 | disposition home or self-care (01) ==
LOC: ER 09:43
DX: R10.12 Left upper quadrant pain (principal); R31.29 Other microscopic hematuria; D69.6 Thrombocytopenia, unspecified; K74.60 Unspecified cirrhosis of liver
CPT/HCPCS: 36415; 74177; 80048; 80076; 81001; 83690; 85025; 87086; 96374; 99285; A4606; J2270; Z7610; 81000-TC; J3490

== ENCOUNTER 2018-03-26 16:22 | Emergency (ER) | payer OTHER ==
[~2018-03-26] VITALS: Ht 162.6 cm; Wt 98.0 kg
--- NOTE | 2018-03-26 16:48 | NUR ---
BIBSELF FOR ABD PAIN; PT AAOX4, RESPIRATIONS EVEN AND UNLABORED, NO SOB, NAD NOTED, PT ON MONITOR, VSS, PENDING ER PROVIDER EVAL
[2018-03-26] MEDS ORDERED: ONDANSETRON HCL/PF 4 MG/2 ML VIAL ONE (16:56)
[2018-03-26] MEDS ORDERED: HYDROMORPHONE INJ 0.5 MG/0.5 ML SYRINGE ONE (16:56)
[2018-03-26 16:57] LABS: BASOPHILS % (AUTO) 0.3 % (0.0-2.0); EOSINOPHILS % (AUTO) 4.3 % (0.0-6.0); HEMATOCRIT 44 % (33-45); HEMOGLOBIN 14.6 g/dL (11.5-14.8); LYMPHOCYTES # (AUTO) 0.8 /CMM (0.8-4.8); LYMPHOCYTES % (AUTO) 12.8 % (20.0-44.0); MEAN CORPUSCULAR HGB CONC 33 g/dl (31.0-36.0); MEAN CORPUSCULAR VOLUME 86 fL (82-100); MONOCYTES # (AUTO) 0.3 /CMM (0.1-1.30); MONOCYTES % (AUTO) 5.7 % (2.0-12.0); NEUTROPHILS # (AUTO) 4.6 /CMM (1.8-8.9); NEUTROPHILS % (AUTO) 76.9 % (43.0-81.0); PLATELET COUNT (AUTO) 66 /CMM (150-450); RED BLOOD CELL COUNT(AUTO) 5.11 MIL/uL (4.0-5.2)
[2018-03-26] MEDS ORDERED: MORPHINE SULFATE INJ 2 MG/ML DISP.SYRIN IV ONE (17:00)
[2018-03-26] MEDS ORDERED: HYDROMORPHONE INJ 0.5 MG/0.5 ML SYRINGE IV ONE (17:00)
[2018-03-26] MEDS ORDERED: ONDANSETRON HCL/PF 4 MG/2 ML VIAL IVP ONE (17:00)
[2018-03-26] MEDS ORDERED: IV NS 0.9% 1,000 ML BAG IV ONE (17:00)
[2018-03-26 17:07] LABS: CALCIUM, SERUM 8.6 mg/dL (8.5-10.1); CREATININE 0.8 mg/dL (0.6-1.3); POTASSIUM 3.5 mmol/L (3.5-5.1)
--- NOTE | 2018-03-26 17:10 | NUR ---
PT GIVEN URINE CUP FOR COLLECTION, PT WAS ONLY ABLE TO GIVE A SMALL AMOUNT, PER LAB, WILL NEED MORE URINE TO RUN FOR UA. PT AWARE. WILL CHECK WITH PT AGAIN.
[2018-03-26 17:12] LABS: ALBUMIN 3.7 g/dL (3.4-5.0); BILIRUBIN,DIRECT 0.2 mg/dL (0.0-0.2); BILIRUBIN,TOTAL 0.8 mg/dL (0.2-1.0); TOTAL PROTEIN, SERUM 7.6 g/dL (6.4-8.2)
[2018-03-26 17:31] LABS: EOSINOPHILS % (MANUAL) 2 % (0-4); LYMPHOCYTES % (MANUAL) 20 % (16-48); MONOCYTES % (MANUAL) 5 % (0-11.0); NEUTROPHILS % (MANUAL) 73 (42-76)
[2018-03-26 18:31] LABS: APPEARANCE,URINE Clear (CLEAR); BILIRUBIN,URINE SMALL (NEGATIVE); BLOOD, URINE Moderate Ery/uL (NEGATIVE); COLOR,URINE Dark (YELLOW); KETONES,URINE Trace (NEGATIVE); LEUKOCYTE ESTERASE ,URINE Negative (NEGATIVE); NITRITE, URINE Negative (NEGATIVE); PH,URINE 5.5 (5.0-8.0); PROTEIN,URINE 30 mg/dl (NEGATIVE); UGLUCOSE Negative (NEGATIVE); UROBILINOGEN,URINE 0.2 EU/dL (0.2)
[2018-03-26 18:32] VITALS: BP 131/67
--- NOTE | 2018-03-26 18:45 | NUR ---
Patient discharged to home in stable condition. Written and verbal after care instructions given. Patient verbalizes understanding of instruction. IV removed. Catheter intact and site benign. Pressure and 4x4 applied to site. No bleeding noted.
[2018-03-26 19:07] LABS: BACTERIA,URINE Few /HPF (None Seen); MUCUS,URINE Few /LPF (None Seen); SQUAMOUS EPITHELIAL CELL,UR Moderate /HPF (None Seen); URINE AMORPHOUS URATE Few /HPF (None Seen); WBC,URINE 0-2 /HPF (0-3)
== END 2018-03-26 18:46 | disposition home or self-care (01) ==
LOC: ER 16:26
DX: K52.9 Noninfective gastroenteritis and colitis, unspecified (principal); Z60.2 Problems related to living alone
CPT/HCPCS: 36415; 80048-TC; 80076-TC; 81000-TC; 83690-TC; 85025-TC; J2405; J7030

== ENCOUNTER 2018-03-29 16:11 | Emergency (ER) | payer OTHER ==
[~2018-03-29] VITALS: Ht 147.3 cm; Wt 92.1 kg
--- NOTE | 2018-03-29 16:34 | NUR ---
FOSTER PA AT BEDSIDE FOR EVAL.
--- NOTE | 2018-03-29 16:38 | NUR ---
IV LINE STARTED BLOOD DRAWN AND SENT TO LAB.
[2018-03-29] MEDS ORDERED: ONDANSETRON HCL/PF 4 MG/2 ML VIAL ONE (16:40)
[2018-03-29 16:57] LABS: BASOPHILS % (AUTO) 0.5 % (0.0-2.0); EOSINOPHILS % (AUTO) 8.9 % (0.0-6.0); HEMATOCRIT 45 % (33-45); LYMPHOCYTES # (AUTO) 1.9 /CMM (0.8-4.8); LYMPHOCYTES % (AUTO) 28.8 % (20.0-44.0); MEAN CORPUSCULAR HGB CONC 33 g/dl (31.0-36.0); MEAN CORPUSCULAR VOLUME 86 fL (82-100); MONOCYTES # (AUTO) 0.7 /CMM (0.1-1.30); MONOCYTES % (AUTO) 11.4 % (2.0-12.0); NEUTROPHILS # (AUTO) 3.2 /CMM (1.8-8.9); NEUTROPHILS % (AUTO) 50.4 % (43.0-81.0); RED BLOOD CELL COUNT(AUTO) 5.27 MIL/uL (4.0-5.2); WHITE BLOOD COUNT (AUTO) 6.4 K/uL (4.3-11.0)
[2018-03-29] MEDS ORDERED: IV NS 0.9% 1,000 ML BAG IV ONE (17:00)
[2018-03-29] MEDS ORDERED: ONDANSETRON HCL/PF 4 MG/2 ML VIAL IVP ONE (17:00)
[2018-03-29 17:02] LABS: PLATELET COUNT (AUTO) 92 /CMM (150-450)
[2018-03-29 17:05] LABS: CREATININE 0.7 mg/dL (0.6-1.3); POTASSIUM 3.3 mmol/L (3.5-5.1)
[2018-03-29 17:10] LABS: ALBUMIN 3.6 g/dL (3.4-5.0); BILIRUBIN,DIRECT 0.2 mg/dL (0.0-0.2); BILIRUBIN,TOTAL 0.6 mg/dL (0.2-1.0); TOTAL PROTEIN, SERUM 7.9 g/dL (6.4-8.2)
[2018-03-29 17:41] LABS: APPEARANCE,URINE HAZY (CLEAR); BILIRUBIN,URINE Negative (NEGATIVE); BLOOD, URINE Moderate Ery/uL (NEGATIVE); COLOR,URINE Yellow (YELLOW); KETONES,URINE Negative (NEGATIVE); LEUKOCYTE ESTERASE ,URINE Negative (NEGATIVE); NITRITE, URINE Negative (NEGATIVE); PH,URINE 5.5 (5.0-8.0); PROTEIN,URINE 30 mg/dl (NEGATIVE); UGLUCOSE Negative (NEGATIVE); UROBILINOGEN,URINE 0.2 EU/dL (0.2)
[2018-03-29 17:53] LABS: BACTERIA,URINE Few /HPF (None Seen); SQUAMOUS EPITHELIAL CELL,UR Few /HPF (None Seen); WBC,URINE 0-2 /HPF (0-3)
--- NOTE | 2018-03-29 18:27 | NUR ---
Patient discharged to home in stable condition. Written and verbal after care instructions given. Patient verbalizes understanding of instruction.IV removed. Catheter intact and site benign. Pressure and 4x4 applied to site. No bleeding noted.
[2018-03-29 18:28] VITALS: BP 155/84
== END 2018-03-29 18:29 | disposition home or self-care (01) ==
LOC: ER 16:17
DX: K52.9 Noninfective gastroenteritis and colitis, unspecified (principal); Z60.2 Problems related to living alone
CPT/HCPCS: 36415; 80048; 80076; 81001; 83690; 85025; 96361; 96374; 99283; A4606; J2405; J7030; 81000-TC

== ENCOUNTER 2018-06-24 23:51 | Emergency (ER) | payer OTHER ==
[~2018-06-24] VITALS: Ht 162.6 cm; Wt 96.4 kg
[2018-06-25] MEDS ORDERED: ONDANSETRON HCL/PF 4 MG/2 ML VIAL ONE ×3 (00:24→05:31)
[2018-06-25] MEDS ORDERED: MORPHINE SULFATE INJ 4 MG/ML DISP.SYRIN ONE (00:25)
[2018-06-25] MEDS ORDERED: ONDANSETRON HCL/PF 4 MG/2 ML VIAL IVP ONE (00:30)
[2018-06-25] MEDS ORDERED: MORPHINE SULFATE INJ 2 MG/ML DISP.SYRIN IV ONE (00:30)
[2018-06-25] MEDS ORDERED: IV NS 0.9% 1,000 ML BAG IV ONE (00:30)
--- NOTE | 2018-06-25 00:34 | NUR ---
BIBS. C/O " HAVING NAUSEA/VOMITING X 1 DAY" -DIARRHEA -SOB -ACUTE DISTRESS. AOX4. HEBREW SPEAKING.
[2018-06-25 00:35] LABS: HEMATOCRIT 41 % (33-45); LYMPHOCYTES # (AUTO) 2.2 /CMM (0.8-4.8); MONOCYTES # (AUTO) 0.5 /CMM (0.1-1.30); NEUTROPHILS # (AUTO) 3.8 /CMM (1.8-8.9); WHITE BLOOD COUNT (AUTO) 7.6 K/uL (4.3-11.0)
[2018-06-25 00:38] LABS: APPEARANCE,URINE Clear (CLEAR); BILIRUBIN,URINE SMALL (NEGATIVE); BLOOD, URINE Moderate Ery/uL (NEGATIVE); COLOR,URINE Yellow (YELLOW); KETONES,URINE Negative (NEGATIVE); LEUKOCYTE ESTERASE ,URINE Negative (NEGATIVE); NITRITE, URINE Negative (NEGATIVE); PROTEIN,URINE 30 mg/dl (NEGATIVE); UGLUCOSE Negative (NEGATIVE); UROBILINOGEN,URINE 0.2 EU/dL (0.2)
[2018-06-25 00:40] LABS: BASOPHILS % (AUTO) 0.6 % (0.0-2.0); EOSINOPHILS % (AUTO) 12.9 % (0.0-6.0); HEMOGLOBIN 13.7 g/dL (11.5-14.8); MEAN CORPUSCULAR HGB CONC 33 g/dl (31.0-36.0); MEAN CORPUSCULAR VOLUME 86 fL (82-100); NEUTROPHILS % (AUTO) 50.5 % (43.0-81.0); PLATELET COUNT (AUTO) 79 /CMM (150-450); RED BLOOD CELL COUNT(AUTO) 4.81 MIL/uL (4.0-5.2)
[2018-06-25 00:45] LABS: CREATININE 0.6 mg/dL (0.6-1.3); POTASSIUM 3.7 mmol/L (3.5-5.1)
[2018-06-25 00:51] LABS: ALBUMIN 3.8 g/dL (3.4-5.0); BILIRUBIN,DIRECT 0.1 mg/dL (0.0-0.2); BILIRUBIN,TOTAL 0.5 mg/dL (0.2-1.0); TOTAL PROTEIN, SERUM 7.7 g/dL (6.4-8.2)
[2018-06-25 00:52] LABS: BACTERIA,URINE None seen /HPF (None Seen); SQUAMOUS EPITHELIAL CELL,UR Few /HPF (None Seen); WBC,URINE 0-2 /HPF (0-3)
[2018-06-25 01:03] LABS: EOSINOPHILS % (MANUAL) 9 % (0-4); LYMPHOCYTES % (MANUAL) 29 % (16-48); MONOCYTES % (MANUAL) 4 % (0-11.0); NEUTROPHILS % (MANUAL) 58 (42-76)
[2018-06-25] MEDS ORDERED: HYDROMORPHONE 1 MG/1 ML DISP.SYRIN ONE (04:27)
[2018-06-25] MEDS ORDERED: ONDANSETRON HCL/PF - ER 4 MG/2 ML VIAL IV ONE ×2 (04:30→05:30)
[2018-06-25] MEDS ORDERED: HYDROMORPHONE 1 MG/1 ML DISP.SYRIN IV ONE (04:30)
[2018-06-25 07:24] VITALS: BP 130/81
[2018-06-25] MEDS ORDERED: CEPHALEXIN MONOHYDRATE 500 MG CAPSULE PO ONE (07:30)
== END 2018-06-25 07:24 | disposition home or self-care (01) ==
LOC: ER 23:53
DX: N39.0 Urinary tract infection, site not specified (principal); R11.2 Nausea with vomiting, unspecified; Z60.2 Problems related to living alone
CPT/HCPCS: 36415; 74176; 80048; 80076; 81001; 82550; 83605; 83690 ×2; 84484; 85025; 85730; 87040 ×2; 93005; 96361; 96374; 96375; 96376; 99284; J1170; J2270; J2405 ×3; J7030 ×2; 81000-TC

== ENCOUNTER 2018-06-30 01:53 | Emergency (ER) | payer OTHER ==
[~2018-06-30] VITALS: Ht 162.6 cm; Wt 100.7 kg
[2018-06-30 02:00] VITALS: BP 118/68
[2018-06-30] MEDS ORDERED: diphenhydrAMINE HCL 50 MG/ML VIAL ONE (02:10)
[2018-06-30] MEDS ORDERED: predniSONE 20 MG TABLET ONE (02:10)
[2018-06-30] MEDS ORDERED: predniSONE 20 MG TABLET PO ONE (02:30)
[2018-06-30] MEDS ORDERED: diphenhydrAMINE HCL 50 MG/ML VIAL IM ONE (02:30)
== END 2018-06-30 03:21 | disposition home or self-care (01) ==
LOC: ER 01:55
DX: T78.40XA Allergy, unspecified, initial encounter (principal); L50.9 Urticaria, unspecified; Z60.2 Problems related to living alone; X58.XXXA Exposure to other specified factors, initial encounter
CPT/HCPCS: 96372; 99283; J1200; J7512

== ENCOUNTER 2018-07-01 16:39 | Emergency (ER) | payer OTHER ==
[~2018-07-01] VITALS: Ht 162.6 cm; Wt 98.0 kg
[2018-07-01 16:41] VITALS: BP 118/70
[2018-07-01] MEDS ORDERED: DIPHENHYDRAMINE HCL 12.5 MG/5 ML UDC PO ONE (18:00)
[2018-07-01] MEDS ORDERED: FAMOTIDINE (20 MG) 20 MG TABLET PO ONE (18:00)
[2018-07-01] MEDS ORDERED: predniSONE 20 MG TABLET PO ONE (18:00)
[2018-07-01] MEDS ORDERED: predniSONE 20 MG TABLET ONE (18:29)
[2018-07-01] MEDS ORDERED: diphenhydrAMINE HCL 25 MG CAPSULE ONE (18:29)
[2018-07-01] MEDS ORDERED: FAMOTIDINE (20 MG) 20 MG TABLET ONE (18:29)
== END 2018-07-01 18:37 | disposition home or self-care (01) ==
LOC: ER 16:41
DX: T78.40XA Allergy, unspecified, initial encounter (principal); L50.9 Urticaria, unspecified; Z60.2 Problems related to living alone; X58.XXXA Exposure to other specified factors, initial encounter
CPT/HCPCS: 99284; J7512; Q0163 ×2

== ENCOUNTER 2018-09-26 18:10 | Emergency (ER) | payer OTHER ==
[~2018-09-26] VITALS: Ht 162.6 cm; Wt 97.1 kg
[2018-09-26] MEDS ORDERED: KETOROLAC TROMETHAMINE INJ 30 MG/ML VIAL IV ONE (19:00)
[2018-09-26] MEDS ORDERED: MORPHINE SULFATE INJ 2 MG/ML DISP.SYRIN IV ONE (19:00)
[2018-09-26] MEDS ORDERED: IV NS 0.9% 1,000 ML BAG IV ONE (19:00)
[2018-09-26] MEDS ORDERED: ONDANSETRON HCL/PF 4 MG/2 ML VIAL IVP ONE (19:00)
[2018-09-26 19:08] LABS: BASOPHILS % (AUTO) 0.6 % (0.0-2.0); EOSINOPHILS % (AUTO) 10.6 % (0.0-6.0); HEMATOCRIT 39 % (33-45); HEMOGLOBIN 12.8 g/dL (11.5-14.8); LYMPHOCYTES # (AUTO) 1.8 /CMM (0.8-4.8); LYMPHOCYTES % (AUTO) 29.6 % (20.0-44.0); MEAN CORPUSCULAR HGB CONC 33 g/dl (31.0-36.0); MEAN CORPUSCULAR VOLUME 87 fL (82-100); MONOCYTES # (AUTO) 0.5 /CMM (0.1-1.30); MONOCYTES % (AUTO) 8.1 % (2.0-12.0); NEUTROPHILS % (AUTO) 51.1 % (43.0-81.0); PLATELET COUNT (AUTO) 61 /CMM (150-450); RED BLOOD CELL COUNT(AUTO) 4.51 MIL/uL (4.0-5.2); WHITE BLOOD COUNT (AUTO) 5.9 K/uL (4.3-11.0)
[2018-09-26] MEDS ORDERED: KETOROLAC TROMETHAMINE 15 MG/ML VIAL ONE (19:09)
[2018-09-26] MEDS ORDERED: MORPHINE SULFATE INJ 2 MG/ML DISP.SYRIN ONE (19:10)
[2018-09-26] MEDS ORDERED: ONDANSETRON HCL/PF 4 MG/2 ML VIAL ONE (19:10)
--- NOTE | 2018-09-26 19:16 | NUR ---
C/O WORSENING LLQ ABD PAIN RADIATES TO LOWER BACK X 15 DAYS. PT AAOX4, VSS. DENIES CP, SOB, DIZZINESS, N/V/D AT THIS TIME. SEEN EVAL'D BY LUIS CALLAHAN. WILL CONT TO MONITOR.
[2018-09-26 19:24] LABS: ALBUMIN 3.2 g/dL (3.4-5.0); BILIRUBIN,DIRECT 0.1 mg/dL (0.0-0.2); BILIRUBIN,TOTAL 0.2 mg/dL (0.2-1.0); CALCIUM, SERUM 8.5 mg/dL (8.5-10.1); CREATININE 0.6 mg/dL (0.6-1.3); POTASSIUM 3.9 mmol/L (3.5-5.1); TOTAL PROTEIN, SERUM 6.7 g/dL (6.4-8.2)
--- NOTE | 2018-09-26 19:27 | NUR ---
MEDICATED FOR PAIN PER PA'S ORDER. PT BAUDILIO WELL.
[2018-09-26 20:22] LABS: APPEARANCE,URINE Cloudy (CLEAR); BILIRUBIN,URINE Negative (NEGATIVE); BLOOD, URINE Small Ery/uL (NEGATIVE); COLOR,URINE Yellow (YELLOW); KETONES,URINE Negative (NEGATIVE); LEUKOCYTE ESTERASE ,URINE Trace (NEGATIVE); NITRITE, URINE Negative (NEGATIVE); PH,URINE 6.5 (5.0-8.0); PROTEIN,URINE Negative (NEGATIVE); UGLUCOSE Negative (NEGATIVE)
[2018-09-26 20:37] LABS: BAND % (MANUAL) 12 % (0.0-5.0); EOSINOPHILS % (MANUAL) 8 % (0-4); LYMPHOCYTES % (MANUAL) 27 % (16-48); MONOCYTES % (MANUAL) 9 % (0-11.0); NEUTROPHILS % (MANUAL) 44 (42-76)
[2018-09-26 20:46] LABS: BACTERIA,URINE None seen /HPF (None Seen); SQUAMOUS EPITHELIAL CELL,UR Moderate /HPF (None Seen)
[2018-09-26 21:31] VITALS: BP 150/87
== END 2018-09-26 21:31 | disposition home or self-care (01) ==
LOC: ER 18:10
DX: K59.00 Constipation, unspecified (principal); R10.32 Left lower quadrant pain; Z60.2 Problems related to living alone
CPT/HCPCS: 36415; 74176; 80048; 80076; 81001; 85025; 96374; 96375; 99284; J1885; J2270; J2405; J7030; 81000-TC

== ENCOUNTER 2018-11-20 | Emergency (ER) | payer MEDICARE, OTHER ==
[~2018-11-20] VITALS: Ht 152.4 cm; Wt 100.7 kg
--- NOTE | 2018-11-20 00:29 | NUR ---
IV LINE ON RAC 20G =. BLOOD DRAWN AND GIVEN TO LANDFILL GAS COLLECTION OPERATOR AT BEDSIDE
[2018-11-20] MEDS ORDERED: ONDANSETRON HCL/PF 4 MG/2 ML VIAL IVP ONE (00:30)
[2018-11-20] MEDS ORDERED: MORPHINE SULFATE INJ 2 MG/ML DISP.SYRIN IV ONE (00:30)
[2018-11-20] MEDS ORDERED: IV NS 0.9% 500 ML BAG IV ONE (00:30)
--- NOTE | 2018-11-20 00:30 | NUR ---
SUZETTE. TO ER BED 10. AAOX4. BULGARIAN SPEAKING W/ MIN UKRAINIAN. NO RESP DISTRESS NOTED. AMBULATORY. C/O RUG ABDOMINAL PAIN SINCE THIS EVENING. PAIN IS REPORTED AT 8/10 SHAPR, THROOBING RADIATING TO BACK. 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 PT REPORTS THAT SHE WAS TOLD BY HER DOCTOR THAT SHE HAVE 3 MASSES ON HER LIVER. MD WAS AT BEDSIDE FOR EVAL. ORDERS RECEIVED, NOTED AND CARRIED OUT. IV LINE ON R AC 20G. BLOOD DRAWN AND GIVEN TO HEALTH AND SAFETY TECHNICIAN AT BEDSIDE.
[2018-11-20 00:32] LABS: BASOPHILS # (AUTO) 0.1 /CMM (0.0-0.2); BASOPHILS % (AUTO) 0.8 % (0.0-2.0); EOSINOPHILS % (AUTO) 10.5 % (0.0-6.0); HEMATOCRIT 41 % (33-45); HEMOGLOBIN 13.4 g/dL (11.5-14.8); LYMPHOCYTES # (AUTO) 2.3 /CMM (0.8-4.8); LYMPHOCYTES % (AUTO) 31.6 % (20.0-44.0); MEAN CORPUSCULAR HGB CONC 33 g/dl (31.0-36.0); MEAN CORPUSCULAR VOLUME 87 fL (82-100); MONOCYTES # (AUTO) 0.5 /CMM (0.1-1.30); MONOCYTES % (AUTO) 7.4 % (2.0-12.0); NEUTROPHILS # (AUTO) 3.6 /CMM (1.8-8.9); NEUTROPHILS % (AUTO) 49.7 % (43.0-81.0); PLATELET COUNT (AUTO) 79 /CMM (150-450); RED BLOOD CELL COUNT(AUTO) 4.69 MIL/uL (4.0-5.2); WHITE BLOOD COUNT (AUTO) 7.1 K/uL (4.3-11.0)
[2018-11-20] MEDS ORDERED: MORPHINE SULFATE INJ 4 MG/ML DISP.SYRIN ONE (00:33)
[2018-11-20] MEDS ORDERED: ONDANSETRON HCL/PF 4 MG/2 ML VIAL ONE (00:33)
[2018-11-20 00:43] LABS: APPEARANCE,URINE Clear (CLEAR); BILIRUBIN,URINE SMALL (NEGATIVE); BLOOD, URINE Moderate Ery/uL (NEGATIVE); COLOR,URINE Yellow (YELLOW); KETONES,URINE Negative (NEGATIVE); LEUKOCYTE ESTERASE ,URINE Negative (NEGATIVE); NITRITE, URINE Negative (NEGATIVE); PH,URINE 5.5 (5.0-8.0); PROTEIN,URINE Trace mg/dl (NEGATIVE); UGLUCOSE Negative (NEGATIVE); UROBILINOGEN,URINE 0.2 EU/dL (0.2)
[2018-11-20 00:49] LABS: CREATININE 0.6 mg/dL (0.6-1.3); POTASSIUM 3.9 mmol/L (3.5-5.1)
[2018-11-20 00:55] LABS: ALBUMIN 3.7 g/dL (3.4-5.0); BILIRUBIN,DIRECT 0.2 mg/dL (0.0-0.2); BILIRUBIN,TOTAL 0.5 mg/dL (0.2-1.0); TOTAL PROTEIN, SERUM 7.6 g/dL (6.4-8.2)
[2018-11-20 01:22] LABS: BACTERIA,URINE Few /HPF (None Seen); SQUAMOUS EPITHELIAL CELL,UR Moderate /HPF (None Seen)
--- NOTE | 2018-11-20 01:36 | NUR ---
Patient discharged to home in stable condition. Written and verbal after care instructions given. Patient verbalizes understanding of instruction.IV removed. Catheter intact and site benign. Pressure and 4x4 applied to site. No bleeding noted. Pt ambulatory with a steady gait
[2018-11-20 01:37] VITALS: BP 103/50
[2018-11-20 01:51] LABS: EOSINOPHILS % (MANUAL) 7 % (0-4); LYMPHOCYTES % (MANUAL) 31 % (16-48); MONOCYTES % (MANUAL) 5 % (0-11.0); NEUTROPHILS % (MANUAL) 57 (42-76)
== END 2018-11-20 01:37 | disposition home or self-care (01) ==
LOC: ER 00:02
DX: R10.9 Unspecified abdominal pain (principal); N39.0 Urinary tract infection, site not specified; Z60.2 Problems related to living alone
CPT/HCPCS: 36415; 80048; 80076; 81001; 83690; 85025; 87086; 96374; 96375; 99283; J2270; J2405; J7040; 81000-TC

== ENCOUNTER 2018-12-13 01:29 | Emergency (ER) | payer MEDICARE, OTHER ==
[~2018-12-13] VITALS: Ht 152.4 cm; Wt 100.7 kg
--- NOTE | 2018-12-13 02:54 | NUR ---
URINE COLLECTED AND SENT TO LAB
--- NOTE | 2018-12-13 02:55 | NUR ---
PT BIB SELF C/O R FLANK PAIN X4 DAYS, N/V X1 DAY. PT AOX4. RESP EVEN AND UNLABORED. PT ON MONITOR IN BED 1. WILL CONTINUE TO MONITOR.
[2018-12-13] MEDS ORDERED: ONDANSETRON HCL/PF 4 MG/2 ML VIAL IVP ONE (03:00)
[2018-12-13] MEDS ORDERED: MORPHINE SULFATE INJ 2 MG/ML DISP.SYRIN IV ONE (03:00)
[2018-12-13] MEDS ORDERED: IV NS 0.9% 500 ML BAG IV ONE (03:00)
--- NOTE | 2018-12-13 03:10 | NUR ---
BLOOD DRAWN AND GIVEN TO LAB
[2018-12-13] MEDS ORDERED: ONDANSETRON HCL/PF 4 MG/2 ML VIAL ONE (03:14)
[2018-12-13] MEDS ORDERED: MORPHINE SULFATE INJ 4 MG/ML DISP.SYRIN ONE (03:14)
[2018-12-13 03:17] LABS: BASOPHILS # (AUTO) 0.1 /CMM (0.0-0.2); BASOPHILS % (AUTO) 0.9 % (0.0-2.0); EOSINOPHILS % (AUTO) 9.8 % (0.0-6.0); HEMATOCRIT 42 % (33-45); HEMOGLOBIN 13.8 g/dL (11.5-14.8); LYMPHOCYTES % (AUTO) 29.3 % (20.0-44.0); MEAN CORPUSCULAR HGB CONC 33 g/dl (31.0-36.0); MEAN CORPUSCULAR VOLUME 86 fL (82-100); MONOCYTES # (AUTO) 0.4 /CMM (0.1-1.30); MONOCYTES % (AUTO) 6.3 % (2.0-12.0); NEUTROPHILS # (AUTO) 3.7 /CMM (1.8-8.9); NEUTROPHILS % (AUTO) 53.7 % (43.0-81.0); PLATELET COUNT (AUTO) 69 /CMM (150-450); RED BLOOD CELL COUNT(AUTO) 4.88 MIL/uL (4.0-5.2); WHITE BLOOD COUNT (AUTO) 6.9 K/uL (4.3-11.0)
[2018-12-13 03:25] LABS: CALCIUM, SERUM 8.6 mg/dL (8.5-10.1); CREATININE 0.6 mg/dL (0.6-1.3); POTASSIUM 3.6 mmol/L (3.5-5.1)
[2018-12-13 03:26] LABS: APPEARANCE,URINE CLEAR (CLEAR); BILIRUBIN,URINE NEGATIVE (NEGATIVE); BLOOD, URINE MODERATE Ery/uL (NEGATIVE); COLOR,URINE YELLOW (YELLOW); KETONES,URINE TRACE (NEGATIVE); LEUKOCYTE ESTERASE ,URINE NEGATIVE (NEGATIVE); NITRITE, URINE NEGATIVE (NEGATIVE); PROTEIN,URINE NEGATIVE (NEGATIVE); UGLUCOSE NEGATIVE (NEGATIVE); UROBILINOGEN,URINE 0.2 EU/dL (0.2)
[2018-12-13 03:30] LABS: ALBUMIN 3.8 g/dL (3.4-5.0); BILIRUBIN,DIRECT 0.1 mg/dL (0.0-0.2); BILIRUBIN,TOTAL 0.5 mg/dL (0.2-1.0); TOTAL PROTEIN, SERUM 7.9 g/dL (6.4-8.2)
[2018-12-13 03:57] LABS: BACTERIA,URINE Few /HPF (None Seen); RBC,URINE 0-2 /HPF (0-2); SQUAMOUS EPITHELIAL CELL,UR Moderate /HPF (None Seen); WBC,URINE 0-2 /HPF (0-3)
[2018-12-13 04:02] LABS: EOSINOPHILS % (MANUAL) 11 % (0-4); LYMPHOCYTES % (MANUAL) 29 % (16-48); MONOCYTES % (MANUAL) 6 % (0-11.0); NEUTROPHILS % (MANUAL) 54 (42-76)
--- NOTE | 2018-12-13 04:12 | NUR ---
IV removed. Catheter intact and site benign. Pressure and 4x4 applied to site. No bleeding noted. Patient discharged to home in stable condition. Written and verbal after care instructions given. Patient verbalizes understanding of instruction. ambulatory with a steady gait noted. pt aaox4 no acute distress noted, resp even and unlabored. advice pt not to drive or operate any machinery due to pt was given narcotic medicine. pt verbalize understanding.
[2018-12-13 04:15] VITALS: BP 156/73
== END 2018-12-13 04:16 | disposition home or self-care (01) ==
LOC: ER 01:31
DX: R10.11 Right upper quadrant pain (principal); R11.2 Nausea with vomiting, unspecified; Z60.2 Problems related to living alone
CPT/HCPCS: 36415; 74176; 80048; 80076; 81001; 83690; 85025; 85730; 96361; 96374; 96375; 99284; J2270; J2405; J7040; 81000-TC

== ENCOUNTER 2019-07-25 20:56 | Emergency (ER) | payer MEDICARE, OTHER ==
[~2019-07-25] VITALS: Ht 162.6 cm; Wt 102.1 kg
--- NOTE | 2019-07-25 21:23 | NUR ---
BIBS FROM HOME TO ER BED 1. AAOX4. SPEAKING IN [place], DR LEWIS AT BEDSIDE TRANSLATING. NOT IN RESP DISTRESS. AMBULATORY. CAME IN LLQ ABDOMINAL RADIATING TO EPIGASTRIC AREA X 5 DAY. 08/29 SHARP INTERMITENT. PT REPORTS THAT SHE STARTED HAVING NAUSEA AND VOMMITING X 3 EPISODE TODAY. NOTED TENDERNASS UPON PALPATION ON THE LLQ ABD. PA AND ER MD AT BEDSIDE FOR EVAL. URINE COLLECTED. IV LINE OBTAINED ON R AC 18G BLOOD DRAWN AND GIVEN TO STEAM TABLE ATTENDANT AT BEDSIDE.
--- NOTE | 2019-07-25 21:24 | NUR ---
BLOOD COLLECTED AND SENT TO LAB
[2019-07-25 21:28] LABS: APPEARANCE,URINE Clear (CLEAR); BILIRUBIN,URINE SMALL (NEGATIVE); BLOOD, URINE Small Ery/uL (NEGATIVE); COLOR,URINE Orange (YELLOW); KETONES,URINE Negative (NEGATIVE); LEUKOCYTE ESTERASE ,URINE Negative (NEGATIVE); NITRITE, URINE Negative (NEGATIVE); PROTEIN,URINE Trace mg/dl (NEGATIVE); UGLUCOSE Negative (NEGATIVE)
[2019-07-25] MEDS ORDERED: ONDANSETRON HCL/PF 4 MG/2 ML VIAL IVP ONE (21:30)
[2019-07-25] MEDS ORDERED: MORPHINE SULFATE INJ 2 MG/ML DISP.SYRIN IV ONE (21:30)
[2019-07-25] MEDS ORDERED: IV NS 0.9% 1,000 ML BAG IV ONE (21:30)
[2019-07-25] MEDS ORDERED: ONDANSETRON HCL/PF 4 MG/2 ML VIAL ONE (21:31)
[2019-07-25] MEDS ORDERED: MORPHINE SULFATE INJ 4 MG/ML DISP.SYRIN ONE (21:31)
[2019-07-25 21:32] LABS: BASOPHILS # (AUTO) 0.1 /CMM (0.0-0.2); BASOPHILS % (AUTO) 0.7 % (0.0-2.0); EOSINOPHILS % (AUTO) 4.8 % (0.0-6.0); HEMATOCRIT 41 % (33-45); HEMOGLOBIN 13.6 g/dL (11.5-14.8); LYMPHOCYTES # (AUTO) 2.3 /CMM (0.8-4.8); LYMPHOCYTES % (AUTO) 28.6 % (20.0-44.0); MEAN CORPUSCULAR HGB CONC 33 g/dl (31.0-36.0); MEAN CORPUSCULAR VOLUME 87 fL (82-100); MONOCYTES # (AUTO) 0.5 /CMM (0.1-1.30); MONOCYTES % (AUTO) 5.8 % (2.0-12.0); NEUTROPHILS # (AUTO) 4.7 /CMM (1.8-8.9); NEUTROPHILS % (AUTO) 60.1 % (43.0-81.0); PLATELET COUNT (AUTO) 75 /CMM (150-450); RED BLOOD CELL COUNT(AUTO) 4.78 MIL/uL (4.0-5.2); WHITE BLOOD COUNT (AUTO) 7.9 K/uL (4.3-11.0)
[2019-07-25 21:41] LABS: CALCIUM, SERUM 8.7 mg/dL (8.5-10.1); CREATININE 0.6 mg/dL (0.6-1.3); POTASSIUM 3.7 mmol/L (3.5-5.1)
[2019-07-25 21:47] LABS: ALBUMIN 3.7 g/dL (3.4-5.0); BILIRUBIN,DIRECT 0.2 mg/dL (0.0-0.2); BILIRUBIN,TOTAL 0.7 mg/dL (0.2-1.0); TOTAL PROTEIN, SERUM 7.6 g/dL (6.4-8.2)
[2019-07-25 22:06] LABS: BACTERIA,URINE Few /HPF (None Seen); SQUAMOUS EPITHELIAL CELL,UR Few /HPF (None Seen); WBC,URINE NONE SEEN /HPF (0-3)
--- NOTE | 2019-07-25 22:20 | NUR ---
pt ambulated well on steady gait with any assist. pt also tolerated oral challenge with feeling nauseous. md is aware.
[2019-07-25 22:31] VITALS: BP 125/60
[2019-07-25 23:17] LABS: EOSINOPHILS % (MANUAL) 6 % (0-4); LYMPHOCYTES % (MANUAL) 30 % (16-48); MONOCYTES % (MANUAL) 5 % (0-11.0); NEUTROPHILS % (MANUAL) 59 (42-76)
== END 2019-07-25 22:31 | disposition home or self-care (01) ==
LOC: ER 20:56
DX: R10.32 Left lower quadrant pain (principal); R11.2 Nausea with vomiting, unspecified; Z60.2 Problems related to living alone
CPT/HCPCS: 36415; 74176; 80048; 80076; 81001; 83690; 85025; 85730; 96361; 96374; 96375; 99284; J2270; J2405; J7030; 81000-TC

== ENCOUNTER 2020-07-04 22:13 | Emergency (ER) | payer MEDICARE, OTHER ==
[~2020-07-04] VITALS: Ht 162.6 cm; Wt 102.1 kg
--- NOTE | 2020-07-04 22:30 | NUR ---
URINE SENT TO LAB
[2020-07-04 22:43] LABS: BILIRUBIN,URINE Negative (NEGATIVE); COLOR,URINE YELLOW (YELLOW); LEUKOCYTE ESTERASE ,URINE Negative (NEGATIVE); NITRITE, URINE Negative (NEGATIVE); PROTEIN,URINE Negative (NEGATIVE); UGLUCOSE 500 MG/DL mg/dL (NEGATIVE); UROBILINOGEN,URINE 0.2 EU/dL (0.2)
[2020-07-04 22:59] LABS: BACTERIA,URINE Rare /HPF (None Seen); RBC,URINE 21-50 /HPF (0-2); SQUAMOUS EPITHELIAL CELL,UR Few /HPF (None Seen); WBC,URINE NONE SEEN /HPF (0-3)
--- NOTE | 2020-07-04 23:20 | NUR ---
BLOOD COLLECTEDAND SENT TOLAB
[2020-07-04 23:30] LABS: BASOPHILS # (AUTO) 0.1 /CMM (0.0-0.2); BASOPHILS % (AUTO) 0.7 % (0.0-2.0); EOSINOPHILS % (AUTO) 10.1 % (0.0-6.0); HEMATOCRIT 41 % (33-45); HEMOGLOBIN 13.4 g/dL (11.5-14.8); LYMPHOCYTES # (AUTO) 1.7 /CMM (0.8-4.8); LYMPHOCYTES % (AUTO) 19.4 % (20.0-44.0); MEAN CORPUSCULAR HGB CONC 33 g/dl (31.0-36.0); MEAN CORPUSCULAR VOLUME 89 fL (82-100); MONOCYTES # (AUTO) 0.6 /CMM (0.1-1.30); MONOCYTES % (AUTO) 6.8 % (2.0-12.0); NEUTROPHILS # (AUTO) 5.6 /CMM (1.8-8.9); RED BLOOD CELL COUNT(AUTO) 4.56 MIL/uL (4.0-5.2); WHITE BLOOD COUNT (AUTO) 8.9 K/uL (4.3-11.0)
[2020-07-04 23:46] LABS: CALCIUM, SERUM 8.2 mg/dL (8.5-10.1); POTASSIUM 4.5 mmol/L (3.5-5.1)
[2020-07-04] MEDS ORDERED: IV NS 0.9% 250 ML IV ONE (23:52)
[2020-07-04] MEDS ORDERED: IOHEXOL-300 100 ML VIAL IV ONE (23:52)
[2020-07-04] MEDS ORDERED: CT SWABBABLE VALVE TRANS SET 1 EA INFUS.SET MC ONE (23:52)
[2020-07-05 00:20] LABS: PLATELET COUNT (AUTO) 83 /CMM (150-450)
[2020-07-05 00:23] LABS: EOSINOPHILS % (MANUAL) 10 % (0-4); LYMPHOCYTES % (MANUAL) 22 % (16-48); MONOCYTES % (MANUAL) 7 % (0-11.0); NEUTROPHILS % (MANUAL) 61 (42-76)
[2020-07-05 01:21] VITALS: BP 158/91
== END 2020-07-05 01:22 | disposition home or self-care (01) ==
LOC: ER 22:16
DX: R10.2 Pelvic and perineal pain (principal); R30.9 Painful micturition, unspecified; R31.9 Hematuria, unspecified; Z60.2 Problems related to living alone
CPT/HCPCS: 36415; 74177; 80048; 81001; 85007; 85025; 99285; J7050; Q9967

== ENCOUNTER 2020-07-30 17:49 | Emergency (ER) | payer MEDICARE, OTHER ==
[~2020-07-30] VITALS: Ht 162.6 cm; Wt 99.8 kg
--- NOTE | 2020-07-30 18:05 | NUR ---
LUQ ABDOMINAL PAIN, NAUSEA AND VOMITING SINCE YESTERDAY. PATIENT A/OX4, DANISH SPEAKING. BREATHING EVEN AND UNLABORED, NO SOB NOTED, NEEDS ATTENDED. KEPT COMFORTABLE.
[2020-07-30] MEDS ORDERED: ONDANSETRON HCL/PF 4 MG/2 ML VIAL ONE (18:11)
[2020-07-30] MEDS ORDERED: MORPHINE SULFATE INJ 4 MG/ML DISP.SYRIN ONE (18:11)
--- NOTE | 2020-07-30 18:25 | NUR ---
IV LINE ESTABLISHED, BLOOD DRAWN AND SENT TO LAB.
[2020-07-30] MEDS ORDERED: ONDANSETRON HCL/PF 4 MG/2 ML VIAL IVP ONE (18:30)
[2020-07-30] MEDS ORDERED: IV NS 0.9% 1,000 ML BAG IV ONE (18:30)
[2020-07-30] MEDS ORDERED: MORPHINE SULFATE INJ 2 MG/ML DISP.SYRIN IV ONE (18:30)
[2020-07-30] MEDS ORDERED: IV NS 0.9% 250 ML IV ONE (18:32)
[2020-07-30] MEDS ORDERED: IOHEXOL-300 100 ML VIAL IV ONE (18:32)
[2020-07-30 18:43] LABS: BILIRUBIN,URINE SMALL (NEGATIVE); COLOR,URINE YELLOW (YELLOW); LEUKOCYTE ESTERASE ,URINE NEGATIVE (NEGATIVE); NITRITE, URINE NEGATIVE (NEGATIVE); PH,URINE 6.5 (5.0-8.0); PROTEIN,URINE TRACE mg/dl (NEGATIVE); UGLUCOSE NEGATIVE (NEGATIVE)
[2020-07-30 18:51] LABS: CREATININE 0.7 mg/dL (0.6-1.3); POTASSIUM 3.8 mmol/L (3.5-5.1)
[2020-07-30 18:55] LABS: BACTERIA,URINE 2+ /HPF (None Seen); CALCIUM OXALATE CRYSTALS,UR Few /HPF (None Seen); MUCUS,URINE Few /LPF (None Seen); WBC,URINE 0-2 /HPF (0-3)
[2020-07-30 18:56] LABS: ALBUMIN 3.1 g/dL (3.4-5.0); BILIRUBIN,DIRECT 0.2 mg/dL (0.0-0.2); BILIRUBIN,TOTAL 0.6 mg/dL (0.2-1.0)
[2020-07-30 19:08] LABS: BASOPHILS # (AUTO) 0.1 /CMM (0.0-0.2); BASOPHILS % (AUTO) 0.8 % (0.0-2.0); EOSINOPHILS % (AUTO) 7.5 % (0.0-6.0); HEMATOCRIT 41 % (33-45); HEMOGLOBIN 13.6 g/dL (11.5-14.8); LYMPHOCYTES # (AUTO) 1.9 /CMM (0.8-4.8); LYMPHOCYTES % (AUTO) 23.6 % (20.0-44.0); MEAN CORPUSCULAR HGB CONC 33 g/dl (31.0-36.0); MEAN CORPUSCULAR VOLUME 89 fL (82-100); MONOCYTES # (AUTO) 0.8 /CMM (0.1-1.30); MONOCYTES % (AUTO) 9.7 % (2.0-12.0); NEUTROPHILS # (AUTO) 4.7 /CMM (1.8-8.9); NEUTROPHILS % (AUTO) 58.4 % (43.0-81.0); PLATELET COUNT (AUTO) 58 /CMM (150-450)
[2020-07-30] MEDS ORDERED: IBUP-1953 PO (19:35)
--- NOTE | 2020-07-30 19:40 | NUR ---
Patient discharged to home in stable condition. Written and verbal after care instructions given. Patient verbalizes understanding of instruction. IV removed. Catheter intact and site benign. Pressure and 4x4 applied to site. No bleeding noted. PT ambulatory with a steady gait
[2020-07-30 19:43] VITALS: BP 160/75
[2020-07-30 20:08] LABS: EOSINOPHILS % (MANUAL) 7 % (0-4); LYMPHOCYTES % (MANUAL) 26 % (16-48); MONOCYTES % (MANUAL) 7 % (0-11.0); NEUTROPHILS % (MANUAL) 60 (42-76)
== END 2020-07-30 19:40 | disposition home or self-care (01) ==
LOC: ER 17:56
DX: R10.12 Left upper quadrant pain (principal); R11.2 Nausea with vomiting, unspecified; E11.9 Type 2 diabetes mellitus without complications; Z60.2 Problems related to living alone
CPT/HCPCS: 36415; 74177; 76705; 80048; 80076; 81001; 83690; 85007; 85025; 87086; 96361; 96374; 96375; 99285; J2270; J2405; J7030; J7050; Q9967

== ENCOUNTER 2020-10-05 14:07 | Emergency (ER) | payer MEDICARE, OTHER ==
[~2020-10-05] VITALS: Ht 162.6 cm; Wt 107.0 kg
[~2020-10-05 14:07] MED LIST changes: -CT SWABBABLE VALVE TRANS SET 1 EA INFUS.SET MC ONE; -HYDROMORPHONE INJ 2 MG/ML DISP.SYRIN IV ONE; -HYDROMORPHONE INJ 2 MG/ML DISP.SYRIN ONE; +IBUP-1953 PO; -IOHEXOL-350 100 ML VIAL IV ONE; -IV NS 0.9% 250 ML IV ONE; -KETOROLAC TROMETHAMINE INJ 30 MG/ML VIAL IV ONE; -KETOROLAC TROMETHAMINE INJ 30 MG/ML VIAL ONE; -ONDANSETRON HCL/PF 4 MG/2 ML VIAL IVP ONE; -ONDANSETRON HCL/PF 4 MG/2 ML VIAL ONE
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
[2020-10-05] MEDS ORDERED: IV NS 0.9% 1,000 ML BAG IV ONE (14:30)
[2020-10-05 14:46] LABS: BASOPHILS % (AUTO) 0.6 % (0.0-2.0); EOSINOPHILS % (AUTO) 10.7 % (0.0-6.0); HEMATOCRIT 42 % (33-45); HEMOGLOBIN 13.8 g/dL (11.5-14.8); LYMPHOCYTES # (AUTO) 1.6 K/uL (0.8-4.8); LYMPHOCYTES % (AUTO) 23.5 % (20.0-44.0); MEAN CORPUSCULAR HGB CONC 33 g/dl (31.0-36.0); MEAN CORPUSCULAR VOLUME 91 fL (82-100); MONOCYTES # (AUTO) 0.5 K/uL (0.1-1.30); MONOCYTES % (AUTO) 7.4 % (2.0-12.0); NEUTROPHILS # (AUTO) 3.9 K/uL (1.8-8.9); NEUTROPHILS % (AUTO) 57.8 % (43.0-81.0); RED BLOOD CELL COUNT(AUTO) 4.65 MIL/uL (4.0-5.2); WHITE BLOOD COUNT (AUTO) 6.7 K/uL (4.3-11.0)
--- NOTE | 2020-10-05 14:51 | NUR ---
PATIENT TAKEN TO CT.
[2020-10-05 14:56] LABS: CALCIUM, SERUM 8.7 mg/dL (8.5-10.1); CREATININE 0.8 mg/dL (0.6-1.3); POTASSIUM 4.1 mmol/L (3.5-5.1)
[2020-10-05] MEDS ORDERED: MORPHINE SULFATE INJ 2 MG/ML DISP.SYRIN IV ONE (15:00)
[2020-10-05] MEDS ORDERED: MORPHINE SULFATE INJ 4 MG/ML DISP.SYRIN ONE (15:00)
[2020-10-05] MEDS ORDERED: ONDANSETRON HCL/PF 4 MG/2 ML VIAL ONE (15:00)
[2020-10-05] MEDS ORDERED: ONDANSETRON HCL/PF - ER 4 MG/2 ML VIAL IV ONE (15:00)
[2020-10-05 15:33] LABS: BAND % (MANUAL) 1 % (0.0-5.0); EOSINOPHILS % (MANUAL) 12 % (0-4); LYMPHOCYTES % (MANUAL) 20 % (16-48); MONOCYTES % (MANUAL) 5 % (0-11.0); NEUTROPHILS % (MANUAL) 62 (42-76)
[2020-10-05 15:36] LABS: PLATELET COUNT (AUTO) 50 K/uL (150-450)
[2020-10-05] MEDS ORDERED: HYDR-4275 PO (15:44)
--- NOTE | 2020-10-05 15:53 | NUR ---
IV removed. Catheter intact and site benign. Pressure and 4x4 applied to site. No bleeding noted. Patient discharged to home in stable condition. Written and verbal after care instructions given. Patient verbalizes understanding of instruction.
[2020-10-05 15:54] VITALS: BP 126/60
== END 2020-10-05 15:55 | disposition home or self-care (01) ==
LOC: ER 14:07
DX: S20.211A Contusion of right front wall of thorax, initial encounter (principal); R91.1 Solitary pulmonary nodule; E11.65 Type 2 diabetes mellitus with hyperglycemia; I10 Essential (primary) hypertension; Z60.2 Problems related to living alone; V49.49XA Driver injured in collision with other motor vehicles in traffic accident, initial encounter; Y93.89 Activity, other specified; Y92.413 State road as the place of occurrence of the external cause; Y99.8 Other external cause status
CPT/HCPCS: 36415; 71250; 80048; 85007; 85025; 96361; 96374; 96375; 99284; J2270; J2405; J7030

== ENCOUNTER 2020-10-22 19:06 | Emergency (ER) | payer MEDICARE, OTHER ==
[~2020-10-22] VITALS: Ht 157.5 cm; Wt 104.3 kg
[~2020-10-22 19:06] MED LIST changes: +HYDR-4275 PO
--- NOTE | 2020-10-22 19:30 | NUR ---
PT BIBS WITH C/O VAGINAL BLEED X 4 DAYS, WORSENING TODAY. 7PADS/DAY WITH + NAUSEA, VOMITING, AND PELVIC PAIN. DENIES FEVERS OR CHILLS. ALERT AND ORIENTED X4. AMBULATORY WITH NON LABORED BREATHING.
[2020-10-22 19:53] LABS: BASOPHILS % (AUTO) 0.5 % (0.0-2.0); EOSINOPHILS % (AUTO) 7.2 % (0.0-6.0); HEMATOCRIT 42 % (33-45); HEMOGLOBIN 13.4 g/dL (11.5-14.8); LYMPHOCYTES # (AUTO) 1.5 K/uL (0.8-4.8); LYMPHOCYTES % (AUTO) 30.8 % (20.0-44.0); MEAN CORPUSCULAR HGB CONC 32 g/dl (31.0-36.0); MEAN CORPUSCULAR VOLUME 91 fL (82-100); MONOCYTES # (AUTO) 0.4 K/uL (0.1-1.30); MONOCYTES % (AUTO) 8.7 % (2.0-12.0); NEUTROPHILS # (AUTO) 2.5 K/uL (1.8-8.9); NEUTROPHILS % (AUTO) 52.8 % (43.0-81.0); RED BLOOD CELL COUNT(AUTO) 4.53 MIL/uL (4.0-5.2); WHITE BLOOD COUNT (AUTO) 4.7 K/uL (4.3-11.0)
[2020-10-22] MEDS: IV NS 0.9% 1,000 ML BAG IV ONE (19:59)
[2020-10-22 20:02] LABS: PLATELET COUNT (AUTO) 42 K/uL (150-450)
--- NOTE | 2020-10-22 20:02 | NUR ---
PLATELET 42
--- NOTE | 2020-10-22 20:04 | NUR ---
Note undone in EDM - 10/22/20 at 2005 by LAURENCE PT BIBS WITH C/O VAGINAL BLEED X 4 DAYS, WORSENING TODAY. 7PADS/DAY WITH + NAUSEA, VOMITING, AND PELVIC PAIN. DENIES FEVERS OR CHILLS. ALERT AND ORIENTED X4. AMBULATORY WITH NON LABORED BREATHING.
[2020-10-22 20:07] LABS: ALBUMIN 2.8 g/dL (3.4-5.0); BILIRUBIN,DIRECT 0.4 mg/dL (0.0-0.2); CALCIUM, SERUM 8.3 mg/dL (8.5-10.1); CREATININE 0.6 mg/dL (0.6-1.3); POTASSIUM 3.7 mmol/L (3.5-5.1); TOTAL PROTEIN, SERUM 6.6 g/dL (6.4-8.2)
[2020-10-22] MEDS ORDERED: MORPHINE SULFATE INJ 4 MG/ML DISP.SYRIN ONE (20:07)
[2020-10-22] MEDS: MORPHINE SULFATE INJ 2 MG/ML DISP.SYRIN IV ONE (20:18)
[2020-10-22] MEDS ORDERED: IOHEXOL-300 100 ML VIAL IV ONE (20:35)
[2020-10-22] MEDS ORDERED: CT SWABBABLE VALVE TRANS SET 1 EA INFUS.SET MC ONE (20:35)
[2020-10-22] MEDS ORDERED: IV NS 0.9% 250 ML IV ONE (20:35)
[2020-10-22] MEDS ORDERED: ONDANSETRON HCL/PF 4 MG/2 ML VIAL ONE (20:54)
[2020-10-22] MEDS: ONDANSETRON HCL/PF 4 MG/2 ML VIAL IV ONE (20:55)
[2020-10-22 21:15] LABS: EOSINOPHILS % (MANUAL) 10 % (0-4); LYMPHOCYTES % (MANUAL) 27 % (16-48); MONOCYTES % (MANUAL) 6 % (0-11.0); NEUTROPHILS % (MANUAL) 57 (42-76)
[2020-10-22] MEDS ORDERED: MEDR10TA10 PO (21:47)
--- NOTE | 2020-10-22 22:00 | NUR ---
Patient discharged to home in stable condition. Written and verbal after care instructions given. Patient verbalizes understanding of instruction. RX GIVEN, IV OUT.
[2020-10-22 22:09] VITALS: BP 110/80
== END 2020-10-22 22:00 | disposition home or self-care (01) ==
LOC: ER 19:07
DX: N93.8 Other specified abnormal uterine and vaginal bleeding (principal); R42 Dizziness and giddiness; I10 Essential (primary) hypertension; E11.9 Type 2 diabetes mellitus without complications; Z60.2 Problems related to living alone; Z79.899 Other long term (current) drug therapy
CPT/HCPCS: 36415; 74177; 76856; 80048; 80076; 83690; 85007; 85025; 85730; 96361; 96374; 96375; 99285; J2270; J2405; J7050; Q9967

== ENCOUNTER 2020-11-15 10:19 | Emergency (ER) | payer MEDICARE, OTHER ==
[~2020-11-15] VITALS: Ht 162.6 cm; Wt 113.4 kg
[~2020-11-15 10:19] MED LIST changes: +MEDR10TA10 PO
--- NOTE | 2020-11-15 10:27 | NUR ---
TO ER BED 16, BIB SELF C/O VAGINAL BLEED X 4 DAYS AND PALPITATIONS STARTED TODAY, AWAITING MD CEJA.
--- NOTE | 2020-11-15 10:32 | NUR ---
AT BEDSIDE FOR EVAL.
[2020-11-15 11:00] LABS: BASOPHILS % (AUTO) 0.2 % (0.0-2.0); HEMATOCRIT 40 % (33-45); HEMOGLOBIN 13.1 g/dL (11.5-14.8); LYMPHOCYTES # (AUTO) 0.4 K/uL (0.8-4.8); LYMPHOCYTES % (AUTO) 10.7 % (20.0-44.0); MEAN CORPUSCULAR HGB CONC 33 g/dl (31.0-36.0); MEAN CORPUSCULAR VOLUME 90 fL (82-100); MONOCYTES # (AUTO) 0.2 K/uL (0.1-1.30); MONOCYTES % (AUTO) 5.4 % (2.0-12.0); NEUTROPHILS # (AUTO) 3.4 K/uL (1.8-8.9); NEUTROPHILS % (AUTO) 83.7 % (43.0-81.0)
[2020-11-15 11:03] LABS: PLATELET COUNT (AUTO) 32 K/uL (150-450)
[2020-11-15 11:15] LABS: CALCIUM, SERUM 8.5 mg/dL (8.5-10.1); CREATININE 0.8 mg/dL (0.6-1.3); POTASSIUM 3.9 mmol/L (3.5-5.1)
--- NOTE | 2020-11-15 11:25 | NUR ---
SALINE LOCK ESTABLISHED RAC 20G
[2020-11-15] MEDS ORDERED: IV NS 0.9% 1,000 ML IV ONE (11:30)
--- NOTE | 2020-11-15 11:51 | NUR ---
LINSEED CAKE TRIMMER AT BEDSIDE
[2020-11-15] MEDS ORDERED: INSULIN REGULAR, HUMAN 100 UNIT/ML 10 ML VIAL ONE (11:52)
[2020-11-15 11:53] LABS: BILIRUBIN,URINE NEGATIVE (NEGATIVE); COLOR,URINE ORANGE (YELLOW); LEUKOCYTE ESTERASE ,URINE NEGATIVE (NEGATIVE); NITRITE, URINE NEGATIVE (NEGATIVE); PROTEIN,URINE NEGATIVE (NEGATIVE); UGLUCOSE >=1000 mg/dL (NEGATIVE); UROBILINOGEN,URINE 0.2 EU/dL (0.2)
[2020-11-15] MEDS ORDERED: INSULIN REGULAR, HUMAN 100 UNIT/ML 10 ML VIAL IV ONE (12:00)
[2020-11-15 12:05] LABS: RBC,URINE TOO NUMEROUS TO COUN /HPF (0-2)
[2020-11-15 12:07] LABS: BACTERIA,URINE Few /HPF (None Seen); SQUAMOUS EPITHELIAL CELL,UR Few /HPF (None Seen)
[2020-11-15 13:45] VITALS: BP 118/77
== END 2020-11-15 13:45 | disposition home or self-care (01) ==
LOC: ER 10:23
DX: N93.9 Abnormal uterine and vaginal bleeding, unspecified (principal); D69.6 Thrombocytopenia, unspecified; E11.65 Type 2 diabetes mellitus with hyperglycemia; I10 Essential (primary) hypertension; Z60.2 Problems related to living alone; Z79.899 Other long term (current) drug therapy
CPT/HCPCS: 36415; 71045; 76856; 80048; 81001; 82962; 84484; 85025; 85730; 86850; 87086; 93005; 96360; 96372; 99285; J1815; J7030

== ENCOUNTER 2021-01-02 22:18 | Emergency (ER) | payer MEDICARE, OTHER ==
[~2021-01-02] VITALS: Ht 162.6 cm; Wt 93.4 kg
--- NOTE | 2021-01-02 23:05 | NUR ---
PT CAME IN C/O VAGINAL HEAVY BLEEDING, PT IS ON MONITOR.
[2021-01-02] MEDS ORDERED: CT SWABBABLE VALVE TRANS SET 1 EA INFUS.SET MC ONE (23:21)
[2021-01-02] MEDS ORDERED: IV NS 0.9% 250 ML IV ONE (23:21)
[2021-01-02] MEDS ORDERED: IOHEXOL-300 100 ML VIAL IV ONE (23:21)
[2021-01-03 03:20] LABS: RED BLOOD CELL COUNT(AUTO) 4.33 MIL/uL (4.0-5.2); WHITE BLOOD COUNT (AUTO) 6.8 K/uL (4.3-11.0)
[2021-01-03 03:21] LABS: EOSINOPHILS % (AUTO) 20.8 % (0.0-6.0); HEMATOCRIT 40 % (33-45); HEMOGLOBIN 13.2 g/dL (11.5-14.8); LYMPHOCYTES % (AUTO) 23.5 % (20.0-44.0); MEAN CORPUSCULAR HGB CONC 33 g/dl (31.0-36.0); MEAN CORPUSCULAR VOLUME 92 fL (82-100); MONOCYTES % (AUTO) 6.7 % (2.0-12.0); NEUTROPHILS % (AUTO) 48.3 % (43.0-81.0); PLATELET COUNT (AUTO) 57 K/uL (150-450)
[2021-01-03 03:22] LABS: BASOPHILS % (AUTO) 0.7 % (0.0-2.0); LYMPHOCYTES # (AUTO) 1.6 K/uL (0.8-4.8); MONOCYTES # (AUTO) 0.5 K/uL (0.1-1.30); NEUTROPHILS # (AUTO) 3.3 K/uL (1.8-8.9)
[2021-01-03 03:46] LABS: BILIRUBIN,DIRECT 0.2 mg/dL (0.0-0.2); BILIRUBIN,TOTAL 0.7 mg/dL (0.2-1.0); CALCIUM, SERUM 8.9 mg/dL (8.5-10.1); CREATININE 0.8 mg/dL (0.6-1.3); POTASSIUM 3.8 mmol/L (3.5-5.1)
[2021-01-03 03:47] LABS: TOTAL PROTEIN, SERUM 7.1 g/dL (6.4-8.2)
[2021-01-03] MEDS ORDERED: TRAN650T2 PO (03:52)
[2021-01-03 05:18] VITALS: BP 154/97
[2021-01-03 21:06] LABS: EOSINOPHILS % (MANUAL) 17 % (0-4); LYMPHOCYTES % (MANUAL) 17 % (16-48); MONOCYTES % (MANUAL) 6 % (0-11.0); NEUTROPHILS % (MANUAL) 60 (42-76)
== END 2021-01-03 05:26 | disposition home or self-care (01) ==
LOC: ER 22:21
DX: N93.9 Abnormal uterine and vaginal bleeding, unspecified (principal); R10.84 Generalized abdominal pain; I10 Essential (primary) hypertension; E11.9 Type 2 diabetes mellitus without complications; Z60.2 Problems related to living alone
CPT/HCPCS: 36415; 74177; 76856; 80048; 80076; 85007; 85025; 85730; 86850; 99285; J7050; Q9967

== ENCOUNTER 2021-03-04 20:45 | Inpatient (IN) | payer MEDICARE, OTHER ==
[~2021-03-04] VITALS: Ht 162.6 cm; Wt 145.1 kg
[~2021-03-04 20:45] MED LIST changes: +TRAN650T2 PO
--- NOTE | 2021-03-04 22:00 | NUR ---
KYE CARDENAS C/O HAVING SYNCOPAL EPISODE AND HITTING RIGHT SIDE OF HEAD ON WALL AFTER FEELING DIZZY. -KO +HEADACHE +NAUSEA. ALSO C/O LEFT LOWER ABDOMINAL PAIN X 4 DAYS. PATIENT IS A/O X 4, RR EVEN AND UNLABORED, NO SOB NOTED. PATIENT CONNECTED TO CARDIAC AND POX MONITOR.
[2021-03-04 22:11] LABS: BASOPHILS % (AUTO) 0.5 % (0.0-2.0); HEMATOCRIT 45 % (33-45); HEMOGLOBIN 14.5 g/dL (11.5-14.8); LYMPHOCYTES % (AUTO) 14.8 % (20.0-44.0); MEAN CORPUSCULAR HGB CONC 32 g/dl (31.0-36.0); MEAN CORPUSCULAR VOLUME 94 fL (82-100); MONOCYTES # (AUTO) 0.7 K/uL (0.1-1.30); MONOCYTES % (AUTO) 9.8 % (2.0-12.0); NEUTROPHILS # (AUTO) 4.7 K/uL (1.8-8.9); NEUTROPHILS % (AUTO) 67.9 % (43.0-81.0); RED BLOOD CELL COUNT(AUTO) 4.75 MIL/uL (4.0-5.2)
[2021-03-04 22:23] LABS: BILIRUBIN,URINE NEGATIVE (NEGATIVE); COLOR,URINE YELLOW (YELLOW); LEUKOCYTE ESTERASE ,URINE NEGATIVE (NEGATIVE); NITRITE, URINE NEGATIVE (NEGATIVE); PH,URINE 5.5 (5.0-8.0); PROTEIN,URINE NEGATIVE (NEGATIVE); UGLUCOSE >=1000 mg/dL (NEGATIVE); UROBILINOGEN,URINE 0.2 EU/dL (0.2)
--- NOTE | 2021-03-04 22:41 | NUR ---
PT TAKEN TO CT
[2021-03-04 22:53] LABS: ALANINE AMINOTRANSFERASE 78 U/L (12-78); ALKALINE PHOSPHATASE 434 U/L (46-116); ASPARTATE AMINOTRANSFERASE 30 U/L (15-37); BILIRUBIN,DIRECT 0.4 mg/dL (0.0-0.2); BILIRUBIN,TOTAL 0.8 mg/dL (0.2-1.0); CALCIUM, SERUM 8.9 mg/dL (8.5-10.1); CARBON DIOXIDE 25 mmol/L (21-32); CHLORIDE 102 mmol/L (98-107); CREATININE 1.1 mg/dL (0.6-1.3); LIPASE 122 U/L (73-393); POTASSIUM 4.7 mmol/L (3.5-5.1); SODIUM SERUM 136 mmol/L (136-145); TOTAL PROTEIN, SERUM 6.9 g/dL (6.4-8.2); UREA NITROGEN, BLOOD 14 mg/dL (7-18)
[2021-03-04 22:59] LABS: BACTERIA,URINE None seen /HPF (None Seen); SQUAMOUS EPITHELIAL CELL,UR Few /HPF (None Seen); WBC,URINE 0-2 /HPF (0-3)
[2021-03-04 23:04] LABS: GLUCOSE > 500 mg/dL (74-106)
[2021-03-04] MEDS ORDERED: INSULIN REGULAR, HUMAN 100 UNIT/ML 10 ML VIAL ONE (23:17)
[2021-03-04] MEDS ORDERED: INSULIN REGULAR, HUMAN 100 UNIT/ML 10 ML VIAL IV ONE (23:30)
[2021-03-04] MEDS ORDERED: IV NS 0.9% 1,000 ML BAG IV ONE (23:30)
[2021-03-04 23:52] LABS: PLATELET COUNT (AUTO) 76 K/uL (150-450)
[2021-03-04 23:55] LABS: BAND % (MANUAL) 1 % (0.0-5.0); EOSINOPHILS % (MANUAL) 7 % (0-4); LYMPHOCYTES % (MANUAL) 12 % (16-48); MONOCYTES % (MANUAL) 6 % (0-11.0); NEUTROPHILS % (MANUAL) 74 (42-76)
--- NOTE | 2021-03-05 | NUR ---
COVID SWAB COLLECTED AND SENT TO LAB
[2021-03-05] MEDS ORDERED: DEXTROSE 50%-WATER 50 ML DISP.SYRIN IV PRN (01:30)
[2021-03-05] MEDS ORDERED: MAG HYDROX/AL HYDROX/SIMETH 30 ML UDC PO PRN (01:30)
[2021-03-05] MEDS ORDERED: ONDANSETRON HCL/PF 4 MG/2 ML VIAL IVP PRN (01:30)
[2021-03-05] MEDS ORDERED: ACETAMINOPHEN 325 MG TABLET PO PRN (01:30)
[2021-03-05] MEDS ORDERED: Z GUARD REMEDY 4 OZ OINT TP PRN (01:30)
[2021-03-05] MEDS ORDERED: IV NS 0.9% 1,000 ML IV PRN (01:30)
[2021-03-05] MEDS ORDERED: MAGNESIUM HYDROXIDE 30 ML UDC PO PRN (01:30)
[2021-03-05] MEDS ORDERED: MORPHINE SULFATE INJ 2 MG/ML DISP.SYRIN IV PRN (01:30)
--- NOTE | 2021-03-05 02:27 | NUR ---
PENDING COVID RAPID RESULT
--- NOTE | 2021-03-05 04:29 | NUR ---
ROOM 208
[2021-03-05] MEDS ORDERED: NABU-139 PO (05:36)
[2021-03-05] MEDS ORDERED: SITA100T PO (05:36)
--- NOTE | 2021-03-05 06:45 | NUR ---
PATIENT TRANSFERRED TO [facility], PT VSS, NO ACUTE DISTRESS NOTED.
--- NOTE | 2021-03-05 07:00 | NUR ---
RN NOTE PT IN STABLE CONDITION. WILL CONTINUE TO MONITOR.
--- NOTE | 2021-03-05 07:12 | NUR ---
RN NOTE PT LEFT AMA. IV LINE REMOVED. ID BAND REMOVED. PT REFUSE EXITCARE EDUCATION PRIOR TO D/C. PT REFUSE SKIN ASSESSMENT. PT REFUSE TO SIGN BELONGINGS LIST. STATES THAT SHE CANNOT STAY D/T NO ONE ABLE TO PICK HER UP TO GO HOME. PT PICKE DUP BELONGINGS. PT SIGNED AMA PAPER. AWARE. PT WENT HOME VIA PRIVATE CAR ACCOMPANIED BY FAMILY. Addendum: 03/05/21 at 1954 by MICHELLE LO RN TIME FOR AMA IS 1911
[2021-03-05] MEDS ORDERED: PANTOPRAZOLE 40 MG TABLET.DR PO SCH (07:30)
[2021-03-05] MEDS: BLOOD SUGAR DIAGNOSTIC 1 EACH STRIP IN SCH ×3 (07:53→17:50)
[2021-03-05] MEDS: INSULIN REGULAR, HUMAN 100 UNIT/ML 3 ML VIAL SQ PRN ×3 (07:56→17:54)
[2021-03-05 09:30] VITALS: BP 113/60
[2021-03-05] MEDS ORDERED: METOPROLOL TARTRATE 25 MG TABLET PO SCH (09:30)
--- NOTE | 2021-03-05 12:00 | NUR ---
RN NOTE PT BS OF 264. INSULIN GIVEN PER SLIDING SCALE. MEDICATION BOTTLE UNABLE TO BE SCANNED. ADMINISTRATION WITNESS BY NICKOLAS BROWN. WILL CONTINUE TO MONITOR.
== END 2021-03-05 19:12 | disposition left against medical advice (07) | DRG 177 ==
LOC: ER 20:49 → TELE2 03-05 05:58
PROVIDERS: ADMIT Internal Medicine; ATTEND Internal Medicine
DX: U07.1 COVID-19 (principal); E11.00 Type 2 diabetes mellitus with hyperosmolarity without nonketotic hyperglycemic-hyperosmolar coma (NKHHC); E43 Unspecified severe protein-calorie malnutrition; Z68.43 Body mass index [BMI] 50.0-59.9, adult; E87.2 Acidosis; I10 Essential (primary) hypertension; K74.60 Unspecified cirrhosis of liver; E11.65 Type 2 diabetes mellitus with hyperglycemia; Z79.899 Other long term (current) drug therapy; D69.59 Other secondary thrombocytopenia; K75.81 Nonalcoholic steatohepatitis (NASH); E66.01 Morbid (severe) obesity due to excess calories; Z79.84 Long term (current) use of oral hypoglycemic drugs; G90.8 Other disorders of autonomic nervous system; R82.4 Acetonuria; K57.30 Diverticulosis of large intestine without perforation or abscess without bleeding; W22.01XA Walked into wall, initial encounter; Y92.009 Unspecified place in unspecified non-institutional (private) residence as the place of occurrence of the external cause
CPT/HCPCS: 36415; 70450-TC; 71045-TC; 76705-TC; 80048-TC; 80076-TC; 81001; 82962-TC; 83690-TC; 85025-TC; 85730-TC; 87081-TC; 93307-TC; C9803; G0378; J1815

== ENCOUNTER 2021-05-02 15:20 | Emergency (ER) | payer MEDICARE, OTHER ==
[~2021-05-02] VITALS: Ht 162.6 cm; Wt 103.9 kg
[~2021-05-02 15:20] MED LIST changes: -HYDR-4275 PO; -IBUP-1953 PO; -MEDR10TA10 PO; +NABU-139 PO; +SITA100T PO
--- NOTE | 2021-05-02 15:54 | NUR ---
TO ER BED 8. BIBS HEADACHE X 5 DAYS, SOB THIS MORNING, ALSO C/O L SIDE CHEST DISCOMFORT ABDOMINAL DISTENTION X 1 WEEK. PT ATTACHED TO MONITOR. BREATHING IS EVEN AND UNLABORED. WARM BLNAKET PROVIDED FOR COMFORT. DR TANG AT BEDSIDE.
--- NOTE | 2021-05-02 15:58 | NUR ---
IV ESTABLISHED L AC 20G. LABS DRAWN AND COLLECTED AT BEDSIDE. CONVERTED TO SALINE LOCK.
[2021-05-02 16:21] LABS: BASOPHILS # (AUTO) 0.1 K/uL (0.0-0.2); BASOPHILS % (AUTO) 0.9 % (0.0-2.0); HEMATOCRIT 40 % (33-45); LYMPHOCYTES # (AUTO) 1.6 K/uL (0.8-4.8); LYMPHOCYTES % (AUTO) 25.3 % (20.0-44.0); MEAN CORPUSCULAR HGB CONC 33 g/dl (31.0-36.0); MEAN CORPUSCULAR VOLUME 94 fL (82-100); MONOCYTES # (AUTO) 0.5 K/uL (0.1-1.30); MONOCYTES % (AUTO) 7.2 % (2.0-12.0); NEUTROPHILS # (AUTO) 2.5 K/uL (1.8-8.9); PLATELET COUNT (AUTO) 61 K/uL (150-450); RED BLOOD CELL COUNT(AUTO) 4.21 MIL/uL (4.0-5.2); WHITE BLOOD COUNT (AUTO) 6.5 K/uL (4.3-11.0)
[2021-05-02 16:32] LABS: CALCIUM, SERUM 6.2 mg/dL (8.5-10.1); CARBON DIOXIDE 22 mmol/L (21-32); CHLORIDE 115 mmol/L (98-107); CREATININE 0.4 mg/dL (0.6-1.3); GLUCOSE 221 mg/dL (74-106); POTASSIUM 2.9 mmol/L (3.5-5.1); SODIUM SERUM 146 mmol/L (136-145); UREA NITROGEN, BLOOD 7 mg/dL (7-18)
[2021-05-02 16:44] LABS: ALANINE AMINOTRANSFERASE 31 U/L (12-78); ALKALINE PHOSPHATASE 146 U/L (46-116); ASPARTATE AMINOTRANSFERASE 48 U/L (15-37); BILIRUBIN,DIRECT 0.4 mg/dL (0.0-0.2); BILIRUBIN,TOTAL 1.2 mg/dL (0.2-1.0); LIPASE 39 U/L (73-393); TOTAL PROTEIN, SERUM 4.6 g/dL (6.4-8.2)
--- NOTE | 2021-05-02 16:56 | NUR ---
PT TAKEN TO CT VIA CARMENCITA
[2021-05-02 17:08] LABS: D-DIMER 13.03 mg/L(FEU (0.17-0.50); EOSINOPHILS % (AUTO) 28.6 % (0.0-6.0)
[2021-05-02] MEDS ORDERED: POTASSIUM CHLORIDE 20 MEQ TAB.PRT.SR PO ONE ×2 (17:27→17:30)
[2021-05-02] MEDS ORDERED: IOHEXOL-350 100 ML VIAL IV ONE (17:57)
[2021-05-02 18:52] LABS: EOSINOPHILS % (MANUAL) 28 % (0-4); LYMPHOCYTES % (MANUAL) 25 % (16-48); MONOCYTES % (MANUAL) 7 % (0-11.0); NEUTROPHILS % (MANUAL) 39 (42-76); REACTIVE LYMPHOCYTES 1 % (0-0)
[2021-05-02] MEDS ORDERED: ALPR0.25 PO (20:01)
[2021-05-02] MEDS ORDERED: POLY10DR OP (20:01)
--- NOTE | 2021-05-02 20:11 | NUR ---
PT DISCHARGED HOME IN STABLE CONDITION. WRITTEN AND AND VERBAL AFTERCARE INSTRUCTIONS PROVIDED AND PT VERBALIZES UNDERSTANDING OF INSTRUCTIONS. IV LINE REMOVED AND PT AMBULATED OUT OF ER WITH STEADY GAIT.
[2021-05-02 20:13] VITALS: BP 167/77
== END 2021-05-02 20:13 | disposition home or self-care (01) ==
LOC: ER 15:27
DX: R06.02 Shortness of breath (principal); R10.9 Unspecified abdominal pain; F41.9 Anxiety disorder, unspecified; R14.0 Abdominal distension (gaseous); I10 Essential (primary) hypertension; E11.9 Type 2 diabetes mellitus without complications; D64.9 Anemia, unspecified; Z60.2 Problems related to living alone; Z79.899 Other long term (current) drug therapy
CPT/HCPCS: 36415; 71045; 71275; 74176; 80048; 80076; 83690; 83880; 84484; 85007; 85025; 85378; 85730; 99285; Q9967

== ENCOUNTER 2021-07-17 21:13 | Emergency (ER) | payer MEDICARE, OTHER ==
[~2021-07-17] VITALS: Ht 162.6 cm; Wt 90.7 kg
[~2021-07-17 21:13] MED LIST changes: +ALPR0.25 PO; +POLY10DR OP
--- NOTE | 2021-07-17 21:30 | NUR ---
TO ER BED 2. BIBS C/O "8 EPISODES OF VOMITTING TODAY" W/ LOWER BACK PAIN +NAUSEA. PT TOOK TYLENOL WITH LITTLE RELIEF. DENIES ANY PAINFUL URINATION. CHANGED INTO GOWN. CONNECTED TO MONITOR. AWAITING MD CEJA
[2021-07-17] MEDS ORDERED: ONDANSETRON HCL/PF 4 MG/2 ML VIAL ONE (21:57)
[2021-07-17] MEDS ORDERED: ONDANSETRON HCL/PF - ER 4 MG/2 ML VIAL IV ONE (22:00)
--- NOTE | 2021-07-17 22:08 | NUR ---
EFRAIN SANDHU AT BEDSIDE FOR EKG
--- NOTE | 2021-07-17 22:08 | NUR ---
IV LINE ESTABLISHED , LAC 18G. BLOOD COLLECTED AND SENT TO LAB
[2021-07-17 22:14] LABS: BASOPHILS % (AUTO) 0.4 % (0.0-2.0); EOSINOPHILS % (AUTO) 18.6 % (0.0-6.0); HEMATOCRIT 40 % (33-45); HEMOGLOBIN 13.5 g/dL (11.5-14.8); MEAN CORPUSCULAR HGB CONC 34 g/dl (31.0-36.0); MEAN CORPUSCULAR VOLUME 91 fL (82-100); MONOCYTES # (AUTO) 0.8 K/uL (0.1-1.30); MONOCYTES % (AUTO) 8.4 % (2.0-12.0); NEUTROPHILS # (AUTO) 4.6 K/uL (1.8-8.9); NEUTROPHILS % (AUTO) 50.6 % (43.0-81.0); PLATELET COUNT (AUTO) 66 K/uL (150-450); RED BLOOD CELL COUNT(AUTO) 4.41 MIL/uL (4.0-5.2); WHITE BLOOD COUNT (AUTO) 9.2 K/uL (4.3-11.0)
[2021-07-17] MEDS ORDERED: MORPHINE SULFATE INJ 2 MG/ML DISP.SYRIN ONE (22:20)
--- NOTE | 2021-07-17 22:21 | NUR ---
PT AMBULATED TO BATHROOM, STEADY GAIT NOTED
--- NOTE | 2021-07-17 22:24 | NUR ---
URINE COLLECTED AND SENT TO LAB
[2021-07-17] MEDS ORDERED: MORPHINE SULFATE INJ 2 MG/ML DISP.SYRIN IV ONE (22:30)
[2021-07-17 22:38] LABS: ALANINE AMINOTRANSFERASE 37 U/L (12-78); ALBUMIN 2.9 g/dL (3.4-5.0); ALKALINE PHOSPHATASE 205 U/L (46-116); ASPARTATE AMINOTRANSFERASE 40 U/L (15-37); BILIRUBIN,DIRECT 0.3 mg/dL (0.0-0.2); BILIRUBIN,TOTAL 0.8 mg/dL (0.2-1.0); CALCIUM, SERUM 8.9 mg/dL (8.5-10.1); CARBON DIOXIDE 29 mmol/L (21-32); CHLORIDE 103 mmol/L (98-107); GLUCOSE 210 mg/dL (74-106); LIPASE 96 U/L (73-393); POTASSIUM 4.2 mmol/L (3.5-5.1); SODIUM SERUM 137 mmol/L (136-145); TOTAL PROTEIN, SERUM 7.3 g/dL (6.4-8.2); UREA NITROGEN, BLOOD 21 mg/dL (7-18)
--- NOTE | 2021-07-17 22:38 | NUR ---
PT TAKEN FOR CT SCAN
[2021-07-17 23:00] LABS: BILIRUBIN,URINE NEGATIVE (NEGATIVE); COLOR,URINE YELLOW (YELLOW); LEUKOCYTE ESTERASE ,URINE NEGATIVE (NEGATIVE); NITRITE, URINE NEGATIVE (NEGATIVE); PH,URINE 6.5 (5.0-8.0); PROTEIN,URINE NEGATIVE (NEGATIVE); UGLUCOSE >=1000 mg/dL (NEGATIVE)
[2021-07-17] MEDS ORDERED: LORAZEPAM INJ 2 MG/ML VIAL ONE (23:29)
[2021-07-17] MEDS ORDERED: LORAZEPAM INJ 2 MG/ML VIAL IV ONE (23:30)
[2021-07-17] MEDS ORDERED: IOHEXOL-350 100 ML VIAL IV ONE (23:40)
[2021-07-17] MEDS ORDERED: IV NS 0.9% 250 ML IV ONE (23:41)
[2021-07-18] MEDS ORDERED: ONDA4TAB5 PO (00:24)
[2021-07-18] MEDS ORDERED: AMOX-430 PO (00:24)
--- NOTE | 2021-07-18 00:48 | NUR ---
IV removed. Catheter intact and site benign. Pressure and 4x4 applied to site. No bleeding noted.
--- NOTE | 2021-07-18 00:48 | NUR ---
Patient discharged to home in stable condition. Written and verbal after care instructions given. Patient verbalizes understanding of instruction.
[2021-07-18 00:58] VITALS: BP 129/96
[2021-07-18 10:07] LABS: BAND % (MANUAL) 1 % (0.0-5.0); EOSINOPHILS % (MANUAL) 16 % (0-4); LYMPHOCYTES % (MANUAL) 23 % (16-48); MONOCYTES % (MANUAL) 8 % (0-11.0); NEUTROPHILS % (MANUAL) 51 (42-76); PROMYELOCYTES % 1 % (0-0)
== END 2021-07-18 00:58 | disposition home or self-care (01) ==
LOC: ER 21:29
DX: K52.9 Noninfective gastroenteritis and colitis, unspecified (principal); F41.9 Anxiety disorder, unspecified; K74.60 Unspecified cirrhosis of liver; I10 Essential (primary) hypertension; E11.9 Type 2 diabetes mellitus without complications; Z60.2 Problems related to living alone; Z79.899 Other long term (current) drug therapy
CPT/HCPCS: 36415; 71045; 71275; 74176; 80048; 80076; 81003; 83690; 84484; 85007; 85025; 85378; 85730; 93005; 96374; 96375; 99285; J2060; J2270; J2405; J7050; Q9967

== ENCOUNTER 2021-10-20 23:45 | Inpatient (IN) | payer MEDICARE, OTHER ==
[~2021-10-20] VITALS: Ht 162.6 cm; Wt 90.7 kg
[~2021-10-20 23:45] MED LIST changes: +AMOX-430 PO; +ONDA4TAB5 PO
--- NOTE | 2021-10-21 00:10 | NUR ---
BIBS. LIGHTHEADEDNESS, CP X 1 WEEK, SON, NAUSEA AND WAS TOLD THIS AM BY PMD THAT SHE HAVE IRREGULAR HEART RHYTHM. PATIENT IS AA0X4. ALBANIAN SPEAKING. ATTACHED TO MONITOR. VITALS CHECKED.
--- NOTE | 2021-10-21 00:20 | NUR ---
IV CANNULA G20 INSERTED ON RIGHT AC. BLOOD DRAWN AND SENT TO LAB
--- NOTE | 2021-10-21 00:26 | NUR ---
EKG DONE AT BEDSIDE.
[2021-10-21 00:28] LABS: BASOPHILS % (AUTO) 0.3 % (0.0-2.0); EOSINOPHILS % (AUTO) 22.6 % (0.0-6.0); HEMATOCRIT 43 % (33-45); LYMPHOCYTES # (AUTO) 1.9 K/uL (0.8-4.8); LYMPHOCYTES % (AUTO) 20.3 % (20.0-44.0); MEAN CORPUSCULAR HGB CONC 33 g/dl (31.0-36.0); MEAN CORPUSCULAR VOLUME 91 fL (82-100); MONOCYTES # (AUTO) 0.5 K/uL (0.1-1.30); MONOCYTES % (AUTO) 5.8 % (2.0-12.0); NEUTROPHILS # (AUTO) 4.7 K/uL (1.8-8.9); PLATELET COUNT (AUTO) 58 K/uL (150-450); RED BLOOD CELL COUNT(AUTO) 4.66 MIL/uL (4.0-5.2); WHITE BLOOD COUNT (AUTO) 9.3 K/uL (4.3-11.0)
[2021-10-21 00:41] LABS: CARBON DIOXIDE 26 mmol/L (21-32); CHLORIDE 101 mmol/L (98-107); CREATININE 0.9 mg/dL (0.6-1.3); GLUCOSE 132 mg/dL (74-106); POTASSIUM 4.6 mmol/L (3.5-5.1); SODIUM SERUM 136 mmol/L (136-145); UREA NITROGEN, BLOOD 18 mg/dL (7-18)
--- NOTE | 2021-10-21 01:20 | NUR ---
PT COMPLAINING OF HEADACHE. MD AWARE. WILL GIVE PAIN MEDS
[2021-10-21] MEDS ORDERED: MORPHINE SULFATE INJ 4 MG/ML DISP.SYRIN ONE (01:24)
[2021-10-21] MEDS ORDERED: MORPHINE SULFATE INJ 2 MG/ML DISP.SYRIN IV ONE (01:30)
[2021-10-21 01:35] LABS: BAND % (MANUAL) 2 % (0.0-5.0); EOSINOPHILS % (MANUAL) 18 % (0-4); LYMPHOCYTES % (MANUAL) 24 % (16-48); MONOCYTES % (MANUAL) 4 % (0-11.0)
[2021-10-21 01:36] LABS: NEUTROPHILS % (MANUAL) 52 (42-76)
--- NOTE | 2021-10-21 02:04 | NUR ---
COVID SWAB DONE AND SENT TO LAB
[2021-10-21] MEDS ORDERED: DOCUSATE SODIUM 100 MG CAPSULE PO PRN (02:30)
[2021-10-21] MEDS ORDERED: ACETAMINOPHEN 325 MG TABLET PO PRN (02:30)
[2021-10-21] MEDS ORDERED: MORPHINE SULFATE INJ 2 MG/ML DISP.SYRIN IV PRN (02:30)
[2021-10-21] MEDS ORDERED: MAG HYDROX/AL HYDROX/SIMETH 30 ML UDC PO PRN (02:30)
[2021-10-21] MEDS ORDERED: NITROGLYCERIN 0.4 MG/TAB BOTTLE SL PRN ×2 (02:30→10:30)
--- NOTE | 2021-10-21 03:10 | NUR ---
PT IS ASLEEP
--- NOTE | 2021-10-21 07:46 | NUR ---
bed given 326-2
--- NOTE | 2021-10-21 07:51 | NUR ---
REPORT GIVEN TO GERARD FOR AILEEN
[2021-10-21] MEDS ORDERED: LINA290C PO (08:16)
[2021-10-21] MEDS ORDERED: PROP10TA68 PO (08:16)
[2021-10-21] MEDS ORDERED: GLIP10TA21 PO (08:16)
[2021-10-21] MEDS ORDERED: EMPA25TA PO (08:16)
[2021-10-21] MEDS ORDERED: METF-440 PO (08:16)
[2021-10-21 09:00] VITALS: BP 131/65
[2021-10-21] MEDS ORDERED: EMPAGLIFLOZIN 25 MG TABLET PO SCH (09:00)
--- NOTE | 2021-10-21 09:15 | NUR ---
DELIVERY MANPATIENT RESOURCE COORDINATOR NOTE PATIENT A/O X4. ABLE TO MAKE NEEDS KNOWN. SPEAKS [place] ISLANDER MAINLY BUT UNDERSTANDS LITHUANIAN WELL. PT ORIENTED TO STAFF AND ROOM. . PT ON ROOM AIR, TOLERATING WELL, BREATHING EVEN AND UNLABORED, NO ACUTE RESPIRATORY DISTRESS NOTED. DENIES CHEST PAIN WHEN RECEIVED. PATIENT IS ABLE TO AMBULATE WITH STEADY GAIT. TELE MONITOR SHOWS SR WITH 50S HR. SKIN IS INTACT. IV ACCESS NOTED ON LAC #20G INTACT, PATENT, FLUSHES WELL. PATIENT IS FOR CTCA, CONSENTS SECURED. RISKS AND BENEFITS ADVISED. PATIENT VERBALIZED UNDERSTANDING. PATIENT'S BED IN LOWEST LOCKED POSITION, SIDE RAILS UP X2 CALL LIGHT AND TRAY TABLE WITHIN PLACED W/I EASY REACH OF PT. WILL CONTINUE TO MONITOR DURING MY SHIFT.
[2021-10-21] MEDS: ASPIRIN 81 MG TAB.CHEW PO SCH ×2 (09:29→09:43)
[2021-10-21] MEDS: glipiZIDE XL 10 MG TAB.OSM.24 PO SCH ×2 (09:29→09:43)
[2021-10-21] MEDS ORDERED: IOHEXOL-350 100 ML VIAL IV ONE (09:39)
[2021-10-21] MEDS ORDERED: CT SWABBABLE VALVE TRANS SET 1 EA INFUS.SET MC ONE (09:41)
[2021-10-21] MEDS ORDERED: METOPROLOL TARTRATE INJ 5 MG/5 ML AMPUL ONE (09:41)
[2021-10-21] MEDS ORDERED: NITROGLYCERIN 0.4 MG/TAB BOTTLE ONE (09:41)
[2021-10-21] MEDS ORDERED: IV NS 0.9% 250 ML IV ONE (09:41)
[2021-10-21] MEDS: ENOXAPARIN SODIUM 60 MG/0.6 ML DISP.SYRIN SQ SCH (09:42)
[2021-10-21] MEDS: METOPROLOL TARTRATE 50 MG TABLET PO SCH ×3 (09:43→23:36)
--- NOTE | 2021-10-21 09:50 | NUR ---
RN NOTES PHYSICAL GEOGRAPHER CALLED TO INFORM THAT PATIENT'S HR OF 97 IS NOT GOOD FOR CTCA. LOPRESSOR IS SCHEDULED AT 12PM. ASKED DR RESENDEZ FOR PERMISSION TO GIVE ERIC FOR THE PROCEDURE. DR QUICK. GIVEN AT 0943.
[2021-10-21] MEDS: METOPROLOL TARTRATE INJ 5 MG/5 ML AMPUL IVP PRN ×3 (10:05→10:15)
--- NOTE | 2021-10-21 10:44 | NUR ---
RN NOTES PATIENT WAS PICKED UP MY COLLAR TRIMMER AT AROUND 1005 AND WAS SENT BACK TO HER ROOM BY EDSON THEODORE AT AROUND 1041 NO BLEEDING NOTED, NO DISTRESS NOTED, PATIENT'S VS WNL. WAS ADVISED TO NOT GIVE METFORMIN FOR 48 HOURS. PATIENT IS AWARE WELL. WILL RELAY TO THE NEXT NURSE.
[2021-10-21] MEDS ORDERED: METOPROLOL TARTRATE 50 MG TABLET PO SCH (12:00)
--- NOTE | 2021-10-21 12:42 | NUR ---
RN NOTES RECEIVED A CALL FROM PHARMACY THAT PATIENT'S JARDIANCE IS NOT AVAILABLE. ADVISED PATIENT TO CALL HER SISTER, SHE SAID SHE WILL DO IT. WILL RELAY TO THE NEXT NURSE FOR FOLLOW UP.
[2021-10-21 16:00] VITALS: BP 102/57
--- NOTE | 2021-10-21 16:08 | NUR ---
RN NOTES PATIENT NOTED TO BE NAUSEOUS, REQUESTED FOR DR RESENDEZ TO PRESCRIBE ORAL MED. 4 MG ZOFRAN Q4H PRN ORDERED. CARRIED OUT.
[2021-10-21] MEDS ORDERED: ONDANSETRON 4 MG TAB.RAPDIS PO PRN (16:30)
--- NOTE | 2021-10-21 18:53 | NUR ---
CERTIFIED VETERINARY TECHNICIAN CLOSING NOTES PATIENT RESTING IN BED. A/O X4. ABLE TO MAKE NEEDS KNOWN. SPEAKS [place] ISLANDER MAINLY BUT UNDERSTANDS FRISIAN WELL. PT ON ROOM AIR, TOLERATING WELL, BREATHING EVEN AND UNLABORED, NO ACUTE RESPIRATORY DISTRESS NOTED. DENIES CHEST PAIN. PATIENT IS ABLE TO AMBULATE WITH STEADY GAIT WITH BRP. PATIENT WAS COMPLAINING OF NAUSEA PERHAPS D/T CONTRAST. ZOFRAN PRN IN PLACE. TELE MONITOR SHOWS SR WITH 50S HR. SKIN IS INTACT. IV ACCESS NOTED ON LAC #20G SL, INTACT, PATENT, FLUSHES WELL. PATIENT HASN'T EATEN SINCE LUNCH. PATIENT'S BED IN LOWEST LOCKED POSITION, SIDE RAILS UP X2 CALL LIGHT AND TRAY TABLE WITHIN PLACED W/I EASY REACH OF PT. WILL CONTINUE TO MONITOR DURING MY SHIFT.
--- NOTE | 2021-10-21 19:10 | NUR ---
TELE/RN OPENING NOTE RECEIVED PATIENT RESTING IN BED. AWAKE, ALERT AND ORIENTED X 4. ABLE TO MAKE NEEDS KNOWN. DENIES PAIN AT THIS TIME. CONTINUES ON ROOM AIR WITH NO S/SX OF RESPIRATORY DISTRESS NOTED. IV ACCESS TO LEFT AC #20G INTACT, PATENT AND SALINE LOCKED. CONTINUES CARDIAC DIET WITH NO S/SX OF ASPIRATION, NAUSEA OR VOMITING NOTED. PATIENT IS AMBULATORY WITH STEADY GAIT. CURRENT TELE READING IS SR. CALL LIGHT WITHIN REACH. ASPIRATION, FALL AND SAFETY PRECAUTIONS MAINTAINED. ALL NEEDS ATTENDED TO AT THIS TIME.
[2021-10-21 20:00] VITALS: BP 121/67
[2021-10-21] MEDS ORDERED: SIMVASTATIN 20 MG TABLET PO SCH (22:00)
[2021-10-22] VITALS: BP 131/62
[2021-10-22 04:00] VITALS: BP 119/59
[2021-10-22] MEDS: METOPROLOL TARTRATE 50 MG TABLET PO SCH (06:01)
--- NOTE | 2021-10-22 06:10 | NUR ---
TELE/RN CLOSING NOTE PATIENT CURRENTLY RESTING IN BED. AWAKE, ALERT AND ORIENTED X 4. ABLE TO MAKE NEEDS KNOWN. DENIES PAIN AT THIS TIME. CONTINUES ON ROOM AIR WITH NO S/SX OF RESPIRATORY DISTRESS NOTED. IV ACCESS TO LEFT AC #20G INTACT, PATENT AND SALINE LOCKED. CONTINUES CARDIAC DIET WITH NO S/SX OF ASPIRATION, NAUSEA OR VOMITING NOTED. PATIENT IS AMBULATORY WITH STEADY GAIT. CURRENT TELE READING IS SR/SB. CALL LIGHT WITHIN REACH. ASPIRATION, FALL AND SAFETY PRECAUTIONS MAINTAINED. WILL ENDORSE PLAN OF CARE TO ONCOMING SHIFT RN.
--- NOTE | 2021-10-22 07:00 | NUR ---
FISH TENDER OPENING NOTES PATIENT LAYING IN BED, A/O X 4, ABLE TO MAKE NEEDS KNOWN. TOLERATING WELL ON ROOM AIR WITH NO S/S RESPIRATORY DISTRESS. NO COMPLAINTS OF PAIN OR DISCOMFORT AT THIS TIME. L AC # 20 G SL CLEAN, INTACT, AND FLUSHING WELL. TELE MONITOR WITH SINUS ENRIQUE 56. SAFETY MEASURES IN PLACE: BED IN LOWEST LOCKED POSITION, SIDE RAILS UP X 2, CALL LIGHT WITHIN REACH. WILL CONTINUE TO MONITOR.
[2021-10-22 08:00] VITALS: BP 106/53
[2021-10-22] MEDS: ENOXAPARIN SODIUM 60 MG/0.6 ML DISP.SYRIN SQ SCH (08:39)
[2021-10-22] MEDS ORDERED: LINAGLIPTIN 5 MG TABLET PO SCH (09:00)
--- NOTE | 2021-10-22 10:50 | NUR ---
CUSTOMER SERVICE SECURITY OFFICERCONSULTING NETWORKING ENGINEER NOTES PATIENT MADE AWARE OF MD DISCHARGE ORDERS AND INSTRUCTIONS. PATIENT VERBALIZED UNDERSTANDING OF MD DISCHARGE INSTRUCTIONS AND SIGNED DISCHARGE INSTRUCTIONS FORM. PATIENT ALSO VERBALIZED POSSESSION OF ALL BELONGINGS AND SIGNED BELONGINGS LIST. IV LINE AND ID BANDS REMOVED. TELE MONITOR AND LEADS REMOVED. COPIES OF ALL PAPERWORK PROVIDED TO PATIENT. PATIENT AMBULATED OFF OF UNIT ACCOMPANIED BY CLIENT CONSULTANT IN STABLE CONDITION.
== END 2021-10-22 11:00 | disposition home or self-care (01) | DRG 206 ==
LOC: ER 23:50 → TELE 10-21 07:47
PROVIDERS: ADMIT Internal Medicine; ATTEND Internal Medicine
DX: M94.0 Chondrocostal junction syndrome [Tietze] (principal); E11.9 Type 2 diabetes mellitus without complications; I10 Essential (primary) hypertension; Z20.822 Contact with and (suspected) exposure to COVID-19; K74.60 Unspecified cirrhosis of liver; Z79.84 Long term (current) use of oral hypoglycemic drugs; Z79.899 Other long term (current) drug therapy; F41.9 Anxiety disorder, unspecified; D69.6 Thrombocytopenia, unspecified; E66.9 Obesity, unspecified; Z68.34 Body mass index [BMI] 34.0-34.9, adult
CPT/HCPCS: 36415; 71045-TC; 75574; 80048-TC; 84484-TC; 85025-TC; 87081-TC; 93307-TC; C9803; G0378; J1650; J2270; J3490; J7050; Q0162; Q9967

== ENCOUNTER 2021-12-04 18:38 | Inpatient (IN) | payer MEDICARE, OTHER ==
[~2021-12-04] VITALS: Ht 162.6 cm; Wt 94.8 kg
[~2021-12-04 18:38] MED LIST changes: -ALPR0.25 PO; -AMOX-430 PO; +EMPA25TA PO; +GLIP10TA21 PO; +LINA290C PO; +METF-440 PO; -ONDA4TAB5 PO; -POLY10DR OP; +PROP10TA68 PO; -TRAN650T2 PO
--- NOTE | 2021-12-04 18:50 | NUR ---
RECEVED PT from home came by forrest s/p fell down pain on rt arm receved fantane by forrest
[2021-12-04] MEDS ORDERED: KETOROLAC TROMETHAMINE 15 MG/ML VIAL ONE (19:51)
[2021-12-04] MEDS ORDERED: KETOROLAC TROMETHAMINE INJ 30 MG/ML VIAL IV ONE (20:00)
--- NOTE | 2021-12-04 20:29 | NUR ---
ailyn at bedside for x-ray.
[2021-12-04] MEDS ORDERED: HYDROMORPHONE 1 MG/1 ML DISP.SYRIN ONE (20:54)
[2021-12-04] MEDS ORDERED: ONDANSETRON HCL/PF 4 MG/2 ML VIAL ONE (20:55)
[2021-12-04] MEDS ORDERED: HYDROMORPHONE 1 MG/1 ML DISP.SYRIN IV ONE (21:00)
[2021-12-04] MEDS ORDERED: ONDANSETRON HCL/PF 4 MG/2 ML VIAL IV ONE (21:00)
--- NOTE | 2021-12-05 00:12 | NUR ---
EFRAIN TORRES IS SPEAKING WITH ORTHOPEDIC MD.
[2021-12-05] MEDS ORDERED: HYDROMORPHONE 1 MG/1 ML DISP.SYRIN IV ONE (00:30)
[2021-12-05] MEDS ORDERED: HYDROMORPHONE 1 MG/1 ML DISP.SYRIN ONE (00:39)
--- NOTE | 2021-12-05 00:57 | NUR ---
covid swab collected and sent to lab.
[2021-12-05] MEDS ORDERED: DEXTROSE 50%-WATER 50 ML DISP.SYRIN IV PRN (01:00)
[2021-12-05] MEDS ORDERED: MAGNESIUM HYDROXIDE 30 ML UDC PO PRN (01:00)
[2021-12-05] MEDS ORDERED: Z GUARD REMEDY 4 OZ OINT TP PRN (01:00)
[2021-12-05] MEDS ORDERED: MAG HYDROX/AL HYDROX/SIMETH 30 ML UDC PO PRN (01:00)
[2021-12-05] MEDS ORDERED: ACETAMINOPHEN 325 MG TABLET PO PRN (01:00)
[2021-12-05] MEDS ORDERED: *INSULIN REGULAR(HUMULIN R)HUM 100 UNIT/ML VIAL SQ PRN (01:00)
[2021-12-05] MEDS ORDERED: ZOLPIDEM TARTRATE 5 MG TABLET PO PRN (01:00)
[2021-12-05 01:20] LABS: BASOPHILS % (AUTO) 0.1 % (0.0-2.0); EOSINOPHILS % (AUTO) 6.6 % (0.0-6.0); HEMATOCRIT 36 % (33-45); HEMOGLOBIN 11.9 g/dL (11.5-14.8); LYMPHOCYTES # (AUTO) 1.1 K/uL (0.8-4.8); LYMPHOCYTES % (AUTO) 13.2 % (20.0-44.0); MEAN CORPUSCULAR HGB CONC 33 g/dl (31.0-36.0); MEAN CORPUSCULAR VOLUME 92 fL (82-100); MONOCYTES # (AUTO) 0.7 K/uL (0.1-1.30); MONOCYTES % (AUTO) 7.8 % (2.0-12.0); NEUTROPHILS # (AUTO) 6.1 K/uL (1.8-8.9); NEUTROPHILS % (AUTO) 72.3 % (43.0-81.0); PLATELET COUNT (AUTO) 54 K/uL (150-450); WHITE BLOOD COUNT (AUTO) 8.5 K/uL (4.3-11.0)
[2021-12-05 01:30] LABS: POTASSIUM 4.5 mmol/L (3.5-5.1)
[2021-12-05] MEDS: ONDANSETRON HCL/PF 4 MG/2 ML VIAL IVP PRN ×2 (01:35→16:33)
--- NOTE | 2021-12-05 01:49 | NUR ---
BED 315-1
--- NOTE | 2021-12-05 01:59 | NUR ---
report given to Lina MORROW to continue care.
--- NOTE | 2021-12-05 02:11 | NUR ---
wheeled patient via gurney accompanied by EMT in no distress. RN assigned at bedside to assume care.
[2021-12-05 02:35] VITALS: BP_SYST 134; BP_SYST 143; BP_DIAS 56; BP_DIAS 78
[2021-12-05 02:42] LABS: BASOPHILS % (MANUAL) 0 % (0.0-2.0); EOSINOPHILS % (MANUAL) 5 % (0-4); LYMPHOCYTES % (MANUAL) 15 % (16-48); MONOCYTES % (MANUAL) 6 % (0-11.0); NEUTROPHILS % (MANUAL) 74 (42-76)
[2021-12-05] MEDS: IV NS 0.9% 1,000 ML IV PRN ×2 (03:40→15:29)
--- NOTE | 2021-12-05 04:13 | NUR ---
MS GRAIN PACKER NOTES: RECEIVED PATIENT FROM ER VIA CARMENCITA CUTLER CONDTION, PLACE IN BED COMFORTABLY, BED IN LOW POSITION, CALL LIGHTS WITHIN REACH, NO COMPLAIN OF PAIN AND DISCOMFORT AT THIS TIME ON ROOM AIR SATURATING WELL, PATIENT IS A/OX4 BRITISH [place] ISLANDER SPEAKING ABLE TO EXPRESS HERSELF, AMBULATORY WITH ASSISTANCE, WITH LFA#20 WITH ONGOING NSS@100ML/HR INFUSING WELL, SKIN ASSESSMENT DONE AND DOCUMENTED, INVENTORIES DONE AND DOCUMENTED AND SIGNED, PATIENT WAS ORIENTED TO ROOM REMIND TO USE THE CALL LIGHTS WHEN NEEDED ASSISTANCE, PATIENT KEPT CLEAN AND DRY ALL NEEDS MET WILL CONTINUE TO MONITOR. Addendum: 12/05/21 at 0421 by DIVINA GUSTAFSON RN PATIENT WAS NOTED WITH SPLINT ON RIGHT ARM INTACT NO BLEEDING WAS OBSERVED,
[2021-12-05] MEDS: INSULIN REGULAR, HUMAN 100 UNIT/ML 3 ML VIAL SQ PRN ×2 (06:43→22:05)
--- NOTE | 2021-12-05 06:45 | NUR ---
RN NOTES: BLOOD SUGAR-188/ 3 UNITS INSULIN GIVEN PER SLIDING SCALE, PATIENT ON NPO AFTER 9AM
--- NOTE | 2021-12-05 06:49 | NUR ---
MS RN CLOSING NOTES: PATIENT SLEEP IN BED COMFORTABLY, AROUSABLE TO VERBAL STIMULI, BED IN LOW POSITION CALL LIGHTS WITHIN REACH, NO COMPLAIN OF PAIN AND DISCOMFORT AT THIS TIME, ON ROOM AIR SATURATING WELL, PATIENT IS A/OX4 AMBULATORY ABLE TO MAKE NEEDS KNOWN, WITH IV LINE AT LFA#20 WITH ONGOING NSS@100ML/HR INFUSING WELL, PATIENT ON NPO AFTER 9AM, KEPT CLEAN AND DRY ALL NEEDS MET ENDORSE TO INCOMING SHIFT.
[2021-12-05] MEDS: BLOOD SUGAR DIAGNOSTIC 1 EACH STRIP VI SCH ×4 (06:59→22:08)
[2021-12-05 07:00] VITALS: BP 130/50
--- NOTE | 2021-12-05 07:30 | NUR ---
RN Receiving Report. Patient AOx4 able to express her own concerns. Patient states she has pain on right arm 5/10, Dressing in place clean, dry and intact. Patient able to move all fingers on all extremities. Capillary refill less than 3 seconds. Patient with IV line on left AC with no signs of infiltration, no pain reported to site. Will continue to monitor throughout shift, provide care as needed. Per physician possible surgery today or tomorrow 12/06. All safety precautions taken, call light and table within reach, bed at lowest position.
[2021-12-05] MEDS: LINAGLIPTIN 5 MG TABLET PO SCH (08:28)
[2021-12-05] MEDS: glipiZIDE XL 10 MG TAB.OSM.24 PO SCH (08:29)
[2021-12-05] MEDS: PROPRANOLOL HCL 10 MG TABLET PO SCH (08:29)
[2021-12-05] MEDS: NABUMETONE 500 MG TABLET PO SCH (08:29)
[2021-12-05] MEDS ORDERED: EMPAGLIFLOZIN 25 MG TABLET PO SCH (09:00)
[2021-12-05] MEDS: HYDROCODONE/APAP 10/325MG TABLET PO PRN ×2 (09:52→16:33)
[2021-12-05] MEDS: HYDROMORPHONE 1 MG/1 ML DISP.SYRIN IV PRN (13:53)
[2021-12-05 16:00] VITALS: BP 97/47
--- NOTE | 2021-12-05 18:18 | NUR ---
RN Closing Note Patient AOx4 able to express her own concerns. Patient in bed with no signs of distress. Provided pain medication as requested by physician. Educated patient on importance of mobility, fluid intake and fiber rich foods to avoid constipation, pt verbalized agreement. Provided comfort as needed, patient remained safe throughout shift. All safety precautions taken, call light and table within reach, bed at lowest position. Will endorse report to night nurse.
--- NOTE | 2021-12-05 19:45 | NUR ---
MS RN OPENING NOTE RECEIVED PATIENT IN BED AWAKE, A/O X4, ABLE TO VERBALIZE NEEDS. NO SIGNS OF ACUTE DISTRESS NOTED. ON ROOM AIR, TOLERATING WELL. NO SOB NOTED, BREATHING EVEN AND UNLABORED. C/O PAIN TO RIGHT ARM D/T RIGHT ELBOW FRACTURE. PT HAS IV ACCESS TO LEFT FA 20 G, INTACT AND PATENT RUNNING NS AT 100 ML/HR. SAFETY MEASURE IN PLACE. BED IN LOWEST AND LOCKED POSITION, SIDE RAILS UP X2, CALL LIGHT WITHIN EASY REACH. WILL CONTINUE TO MONITOR PATIENT.
[2021-12-05 20:00] VITALS: BP 97/42
[2021-12-06] MEDS: HYDROMORPHONE 1 MG/1 ML DISP.SYRIN IV PRN (01:17)
--- NOTE | 2021-12-06 01:20 | NUR ---
MS RN NOTE PT'S BP IS MANUALLY CHECKED. BP: 114/68. PT GIVEN DILAUDID FOR SEVERE PAIN TO RIGHT ARM.
[2021-12-06] MEDS: HYDROCODONE/APAP 10/325MG TABLET PO PRN ×2 (05:46→11:52)
[2021-12-06] MEDS: IV NS 0.9% 1,000 ML IV PRN (06:52)
--- NOTE | 2021-12-06 07:00 | NUR ---
MS RN CLOSING NOTE LEFT PATIENT AWAKE IN BED, AROUSABLE TO VERBAL STIMULI, BED IN LOW POSITION CALL LIGHTS WITHIN REACH, NO COMPLAIN OF PAIN AND DISCOMFORT AT THIS TIME, ON ROOM AIR SATURATING WELL, PATIENT IS A/OX4 AMBULATORY WITH ASSIST. ABLE TO MAKE NEEDS KNOWN. WITH IV LINE AT LFA #20 G. PT KEPT CLEAN AND DRY. ALL NEEDS MET. WILL ENDORSE TO INCOMING SHIFT NURSE .
[2021-12-06] MEDS: BLOOD SUGAR DIAGNOSTIC 1 EACH STRIP VI SCH ×2 (07:24→11:12)
--- NOTE | 2021-12-06 07:29 | NUR ---
MS RN OPENING NOTES RECEIVED PATIENT AWAKE IN BED IN NO ACUTE SIGNS OF DISTRESS. A/O X4, ABLE TO VERBALIZE NEEDS, NO C/O PAIN AT THIS TIME. ON ROOM AIR, TOLERATING WELL, BREATHING EVEN AND UNLABORED. PT WITH R ARM SPLINT IN PLACE. IV ACCESS ON LEFT FA #20G INTACT AND PATENT RUNNING NS AT 100 ML/HR. SAFETY MEASURE IN PLACE: BED IN LOWEST LOCKED POSITION, SIDE RAILS UP X2, CALL LIGHT WITHIN EASY REACH. WILL CONTINUE TO MONITOR PATIENT.
[2021-12-06 07:38] LABS: BASOPHILS # (AUTO) 0.1 K/uL (0.0-0.2); BASOPHILS % (AUTO) 0.6 % (0.0-2.0); HEMATOCRIT 33 % (33-45); LYMPHOCYTES # (AUTO) 2.5 K/uL (0.8-4.8); MEAN CORPUSCULAR HGB CONC 33 g/dl (31.0-36.0); MEAN CORPUSCULAR VOLUME 93 fL (82-100); MONOCYTES % (AUTO) 8.1 % (2.0-12.0); NEUTROPHILS # (AUTO) 4.1 K/uL (1.8-8.9); NEUTROPHILS % (AUTO) 34.3 % (43.0-81.0); PLATELET COUNT (AUTO) 67 K/uL (150-450); WHITE BLOOD COUNT (AUTO) 11.8 K/uL (4.3-11.0)
[2021-12-06 07:44] LABS: CALCIUM, SERUM 8.2 mg/dL (8.5-10.1); MAGNESIUM 2.2 mg/dL (1.8-2.4); POTASSIUM 4.5 mmol/L (3.5-5.1)
[2021-12-06 08:00] VITALS: BP 90/44
[2021-12-06] MEDS: glipiZIDE XL 10 MG TAB.OSM.24 PO SCH (08:41)
[2021-12-06] MEDS: LINAGLIPTIN 5 MG TABLET PO SCH (08:41)
[2021-12-06] MEDS: NABUMETONE 500 MG TABLET PO SCH (08:42)
[2021-12-06 08:54] VITALS: BP 90/44
[2021-12-06] MEDS: PROPRANOLOL HCL 10 MG TABLET PO SCH (08:54)
[2021-12-06 09:11] LABS: BASOPHILS % (MANUAL) 0 % (0.0-2.0); EOSINOPHILS % (MANUAL) 33 % (0-4); LYMPHOCYTES % (MANUAL) 12 % (16-48); MONOCYTES % (MANUAL) 3 % (0-11.0); NEUTROPHILS % (MANUAL) 52 (42-76)
[2021-12-06] MEDS: INSULIN REGULAR, HUMAN 100 UNIT/ML 3 ML VIAL SQ PRN (11:13)
--- NOTE | 2021-12-06 11:53 | NUR ---
RN NOTES PT C/O RIGHT ELBOW PAIN. 9/10 SCALE. PRN NORCO 10/325 MG PO ADMINISTERED AT 1152. WILL CONTINUE TO MONITOR AND REASSESS PT.
--- NOTE | 2021-12-06 15:09 | NUR ---
RN DISCHARGED NOTES PT DISCHARGED HOME IN STABLE CONDITION. A/O X4. URUGUAYAN SPEAKING. ALL BELONGINGS ACCOUNTED FOR AND PT SIGNED BELONGINGS LIST. IV ACCESS ON LAF G#2O REMOVED WITH NO ACTIVE BLEEDING NOTED, DRY PRESSURE DRESSING APPLIED AT SITE. PHOTOS OF SKIN ISSUES TAKEN AND WAS FILED ON HER CHART. PT HANDED NAME AND TELEPHONE # OF ORTHOPEDIC MD PERAL REESE TO MAKE APPOINTMENT AND SEE HIM. HEALTH TEACHINGS/DISCHARGE INSTRUCTIONS GIVEN TO PT AND HER [id number] IDALIA, BOTH VERBALIZED UNDERSTANDING. EXIT FOLDER HANDED TO PT'S [id number]. NAME ARMBAND REMOVED. PT MAINTAINED WITH SPLINT/SLING ON RIGHT ARM. PT LEFT UNIT @ 1445 VIA WHEELCHAIR ACCOMPANIED BY PRACHI HERMAN. AND CHARGE NURSE AWARE OF DISCHARGE.
== END 2021-12-06 14:50 | disposition home or self-care (01) | DRG 563 ==
LOC: ER 18:47 → MED 12-05 01:57
PROVIDERS: ADMIT Internal Medicine; ATTEND Internal Medicine
DX: S52.121A Displaced fracture of head of right radius, initial encounter for closed fracture (principal); E87.1 Hypo-osmolality and hyponatremia; W01.0XXA Fall on same level from slipping, tripping and stumbling without subsequent striking against object, initial encounter; D69.6 Thrombocytopenia, unspecified; I10 Essential (primary) hypertension; E11.9 Type 2 diabetes mellitus without complications; Y92.008 Other place in unspecified non-institutional (private) residence as the place of occurrence of the external cause; E78.5 Hyperlipidemia, unspecified; I25.10 Atherosclerotic heart disease of native coronary artery without angina pectoris; K74.60 Unspecified cirrhosis of liver; Z79.84 Long term (current) use of oral hypoglycemic drugs; Z79.899 Other long term (current) drug therapy; Z87.891 Personal history of nicotine dependence; Z20.822 Contact with and (suspected) exposure to COVID-19; S09.93XA Unspecified injury of face, initial encounter; S52.001A Unspecified fracture of upper end of right ulna, initial encounter for closed fracture; S53.101A Unspecified subluxation of right ulnohumeral joint, initial encounter
CPT/HCPCS: 36415; 71045-TC; 73030-TC; 73080-TC; 73090-TC; 73200-TC; 80048-TC; 82962-TC; 83735-TC; 84100-TC; 85025-TC; 85610-TC; 86850-TC; 87081-TC; 94799-TC; C9803; G0378; J1170; J1815; J1885; J2405; J7030

== ENCOUNTER 2021-12-10 21:16 | Emergency (ER) | payer MEDICARE, OTHER ==
[~2021-12-10] VITALS: Ht 157.5 cm; Wt 99.8 kg
[2021-12-10] MEDS ORDERED: MORPHINE SULFATE INJ 2 MG/ML DISP.SYRIN IM ONE (22:30)
[2021-12-10] MEDS ORDERED: ONDANSETRON 4 MG TAB.RAPDIS SL ONE (22:30)
[2021-12-10 22:40] VITALS: BP 154/88
[2021-12-10] MEDS ORDERED: MORPHINE SULFATE INJ 4 MG/ML DISP.SYRIN ONE (22:45)
[2021-12-10] MEDS ORDERED: ONDANSETRON 4 MG TAB.RAPDIS ONE (22:46)
[2021-12-10] MEDS ORDERED: DOCU-141 PO (23:06)
[2021-12-10] MEDS ORDERED: HYDR-4209 PO (23:06)
--- NOTE | 2021-12-10 23:07 | NUR ---
Patient discharged to home in stable condition. Written and verbal after care instructions given. Patient verbalizes understanding of instruction. Pt ambulatory with a steady gait
== END 2021-12-10 23:51 | disposition home or self-care (01) ==
LOC: ER 21:35
DX: S42.401D Unspecified fracture of lower end of right humerus, subsequent encounter for fracture with routine healing (principal); M25.521 Pain in right elbow; I10 Essential (primary) hypertension; E11.9 Type 2 diabetes mellitus without complications; Z79.899 Other long term (current) drug therapy; X58.XXXD Exposure to other specified factors, subsequent encounter
CPT/HCPCS: 99283; 96372; J2270; Q0162

== ENCOUNTER 2022-05-09 06:26 | Inpatient (IN) | payer MEDICARE, OTHER ==
[~2022-05-09] VITALS: Ht 162.6 cm; Wt 85.3 kg
[~2022-05-09 06:26] MED LIST changes: +DOCU-141 PO; +HYDR-4209 PO
--- NOTE | 2022-05-09 06:30 | NUR ---
ORALIA RA FROM CLINIC FOR CHEST PAIN. ONSET 0100 NONSPECIFIC RAD TO L ARM. NO KNOWN CARDIAC HX. NITROX2, [id number] GIVEN TELEMETRY REGISTERED NURSE. AWAKE AND ALERT AT BASELINE MENTATION. RR EVEN AND UNLABORED WITH REPORTED MILD SOB. PLACED ON RADIAL SAW OPERATOR AND PULSE OX.
--- NOTE | 2022-05-09 06:31 | NUR ---
DR JACOB TORRES AT PT'S BEDSIDE FOR EVAL
--- NOTE | 2022-05-09 06:37 | NUR ---
blood collected, sent to lab
--- NOTE | 2022-05-09 06:50 | NUR ---
COVID ANTIGEN SWAB COLLECTED AND SENT TO LAB
--- NOTE | 2022-05-09 07:09 | NUR ---
AIRPLANE DISPATCH CLERK AT PT'S BEDSIDE
[2022-05-09 07:14] LABS: BASOPHILS % (AUTO) 0.4 % (0.0-2.0); HEMATOCRIT 39 % (33-45); HEMOGLOBIN 12.9 g/dL (11.5-14.8); LYMPHOCYTES # (AUTO) 1.8 K/uL (0.8-4.8); LYMPHOCYTES % (AUTO) 18.1 % (20.0-44.0); MEAN CORPUSCULAR HGB CONC 33 g/dl (31.0-36.0); MEAN CORPUSCULAR VOLUME 91 fL (82-100); MONOCYTES # (AUTO) 0.6 K/uL (0.1-1.30); MONOCYTES % (AUTO) 6.2 % (2.0-12.0); NEUTROPHILS # (AUTO) 4.8 K/uL (1.8-8.9); NEUTROPHILS % (AUTO) 49.3 % (43.0-81.0); PLATELET COUNT (AUTO) 62 K/uL (150-450); RED BLOOD CELL COUNT(AUTO) 4.34 MIL/uL (4.0-5.2); WHITE BLOOD COUNT (AUTO) 9.8 K/uL (4.3-11.0)
[2022-05-09 07:43] LABS: EOSINOPHILS % (MANUAL) 26 % (0-4); LYMPHOCYTES % (MANUAL) 22 % (16-48); MONOCYTES % (MANUAL) 6 % (0-11.0); NEUTROPHILS % (MANUAL) 46 (42-76)
[2022-05-09 07:48] LABS: CALCIUM, SERUM 8.3 mg/dL (8.5-10.1); CARBON DIOXIDE 26 mmol/L (21-32); CHLORIDE 109 mmol/L (98-107); CREATININE 0.8 mg/dL (0.6-1.3); GLUCOSE 189 mg/dL (74-106); POTASSIUM 4.5 mmol/L (3.5-5.1); SODIUM SERUM 141 mmol/L (136-145); UREA NITROGEN, BLOOD 14 mg/dL (7-18)
[2022-05-09 07:54] LABS: ALANINE AMINOTRANSFERASE 49 U/L (12-78); ALBUMIN 3.3 g/dL (3.4-5.0); ALKALINE PHOSPHATASE 216 U/L (46-116); ASPARTATE AMINOTRANSFERASE 52 U/L (15-37); BILIRUBIN,DIRECT 0.4 mg/dL (0.0-0.2); TOTAL PROTEIN, SERUM 7.3 g/dL (6.4-8.2)
--- NOTE | 2022-05-09 08:21 | NUR ---
CALLED NURSING SUP REGARDING PT BED
--- NOTE | 2022-05-09 08:40 | NUR ---
ROOM 310-2
--- NOTE | 2022-05-09 08:54 | NUR ---
REPORT GIVEN TO SUKHJINDER
--- NOTE | 2022-05-09 09:10 | NUR ---
PT TRASNFERRED TO TELE UNIT WITH ACLS PROTOCOLS IN PLACE
[2022-05-09 09:30] VITALS: BP 128/50
--- NOTE | 2022-05-09 10:00 | NUR ---
HEALTH CARE CONSULTANT NOTE RECEIVED FROM ER IS A 66 YEAR OLD FEMALE PATIENT ACCOMPANIED BY 2 NURSES, TRANSPORTED VIA GURNEY. PATIENT ABLE TO WALK FROM THE GURNEY TO THE BED WITH STEADY GAIT. PATIENT LAY ON BED AND COMFORT MEASURES PROVIDED. ON MODERATE BACK REST. PATIENT IS ALERT AND ORIENTED X 4. ABLE TO MAKE NEEDS KNOWN. PATIENT IS ON ROOM AIR WITH EQUAL AND UNLABORED BREATHING WITH NO SIGNS OF RESPIRATORY DISTRESS. HOOKED TO TELE MONITOR READING SINUS RHYTHYM AT 80 BPM. WITH IV ACCESS ON THE LEFT AC G 20, PATENT AND INTACT. NO SKIN ISSUE EXCEPT FOR THE SCAR ON THE RIGHT ELBOW RELATED TO FRACTURE AND REPAIR 2 YEARS AGO. ENCOURAGED TO VERBALIZE NEEDS. SAFETY MEASURES ENSURED WITH BED IN LOWEST LOCKED POSITION, SIDERAILS RAISED, ALARM ON, CALL LIGHT WITHIN REACH AT ALL TIMES. IN STABLE CONDITION. HOSPITALIST NOTIFIED OF ADMISSION. WILL CONTINUE WITH PLAN OF CARE.
[2022-05-09 12:00] VITALS: BP 118/48
[2022-05-09] MEDS ORDERED: ENOXAPARIN SODIUM 40 MG/0.4 ML DISP.SYRIN SQ SCH (12:00)
[2022-05-09] MEDS ORDERED: ZOLPIDEM TARTRATE 5 MG TABLET PO PRN (12:00)
[2022-05-09] MEDS ORDERED: Z GUARD REMEDY 4 OZ OINT TP PRN (12:00)
[2022-05-09] MEDS ORDERED: ACETAMINOPHEN 325 MG TABLET PO PRN (12:00)
[2022-05-09] MEDS ORDERED: SITAGLIPTIN PHOSPHATE 50 MG TABLET PO SCH (12:00)
[2022-05-09] MEDS ORDERED: ONDANSETRON HCL/PF 4 MG/2 ML VIAL IVP PRN (12:00)
[2022-05-09] MEDS ORDERED: MAG HYDROX/AL HYDROX/SIMETH 30 ML UDC PO PRN (12:00)
[2022-05-09] MEDS: EMPAGLIFLOZIN 25 MG TABLET PO SCH ×2 (12:59→17:29)
[2022-05-09] MEDS: glipiZIDE XL 10 MG TAB.OSM.24 PO SCH (12:59)
[2022-05-09] MEDS: METFORMIN 500 MG TABLET PO SCH ×2 (12:59→21:19)
[2022-05-09] MEDS: DOCUSATE SODIUM 100 MG CAPSULE PO SCH ×2 (12:59→17:29)
[2022-05-09] MEDS: PROPRANOLOL HCL 10 MG TABLET PO SCH (13:00)
[2022-05-09] MEDS: LINAGLIPTIN 5 MG TABLET PO SCH (13:00)
--- NOTE | 2022-05-09 13:05 | NUR ---
BRIMMER BLOCKER NOTE PATIENT DROPPED MEDICATION. WASTED MEDICATION ACCORDINGLY
--- NOTE | 2022-05-09 13:21 | NUR ---
VASCULAR SURGERY PHYSICIAN NOTE SEEN BY HOSPITALIST CAPO AND DR. JONES. COMPLAINED OF SOME PAIN ON THE LEFT SHOULDER, ARM. TYLENOL GIVEN FOR PAIN. PROVIDED WITH CALM AND QUIET ENVIRONMENT.
[2022-05-09 16:00] VITALS: BP 98/40
--- NOTE | 2022-05-09 18:36 | NUR ---
CLINICAL QUALITY RN CLOSING NOTE PATIENT IS ALERT AND ORIENTED X 4. ABLE TO MAKE NEEDS KNOWN. PATIENT IS ON ROOM AIR WITH EQUAL AND UNLABORED BREATHING WITH NO SIGNS OF RESPIRATORY DISTRESS. HOOKED TO TELE MONITOR READING SINUS RHYTHYM AT 80S BPM. WITH IV ACCESS ON THE LEFT AC G 20, PATENT AND INTACT. ENCOURAGED TO VERBALIZE NEEDS. SAFETY MEASURES ENSURED WITH BED IN LOWEST LOCKED POSITION, SIDERAILS RAISED, ALARM ON, CALL LIGHT WITHIN REACH AT ALL TIMES. IN STABLE CONDITION. AWAITING ULTRASOUND ORDERED. WILL ENDORSE TO NEXT SHIFT FOR CONTINUITY OF CARE.
--- NOTE | 2022-05-09 19:31 | NUR ---
DINKEY ENGINE FIRER OPENING NOTE RECEIVED PT AWAKE IN BED. A/O X4, KHMER SPEAKING, AND ABLE TO MAKE NEEDS KNOWN. PT STABLE ON ROOM AIR. NO SOB OR S/S OF RESPIRATORY DISTRESS. BREATHING EVEN AND UNLABORED. ON EXTERNAL STOCK AND STATION AGENT READING SR 74 BPM. IV ACCES LAC 20G SL, INTACT AND PATENT.NO COMPLAINTS OF PAIN OR DISCOMFORT AT THIS TIME. SAFETY PRECAUTIONS IN PLACE. BED IN LOWEST LOCKED POSITION, HOB ELEVATED, SIDE RAILS UP X2, AND CALL LIGHT AND TABLE WITHIN REACH. ALL NEEDS MET AT THIS TIME.
[2022-05-09 20:00] VITALS: BP 96/52
[2022-05-09] MEDS ORDERED: ATORVASTATIN 10 MG TABLET PO SCH (22:00)
[2022-05-10] VITALS: BP 105/43
[2022-05-10 04:00] VITALS: BP 100/50
--- NOTE | 2022-05-10 06:43 | NUR ---
AUTOMATIC LINE SET UP MECHANIC CLOSING NOTE PT AWAKE IN BED. A/O X4, MALAY SPEAKING, AND ABLE TO MAKE NEEDS KNOWN. PT STABLE ON ROOM AIR. NO SOB OR S/S OF RESPIRATORY DISTRESS. BREATHING EVEN AND UNLABORED. ON EXTERNAL YARD COORDINATOR READING SR 88 BPM. IV ACCES LAC 20G SL, INTACT AND PATENT.NO COMPLAINTS OF PAIN OR DISCOMFORT AT THIS TIME. ALL DUE MEDS GIVEN ORDERED. SAFETY PRECAUTIONS IN PLACE AT ALL TIMES. BED IN LOWEST LOCKED POSITION, HOB ELEVATED, SIDE RAILS UP X2, AND CALL LIGHT AND TABLE WITHIN REACH. ALL NEEDS MET AT THIS TIME AND WILL ENDORSE TO ONCOMING NURSE FOR AILEEN.
[2022-05-10 07:00] VITALS: BP 106/58
[2022-05-10 07:31] LABS: BASOPHILS % (AUTO) 0.5 % (0.0-2.0); EOSINOPHILS % (AUTO) 3.4 % (0.0-6.0); HEMATOCRIT 32 % (33-45); HEMOGLOBIN 10.5 g/dL (11.5-14.8); LYMPHOCYTES # (AUTO) 1.4 K/uL (0.8-4.8); LYMPHOCYTES % (AUTO) 14.8 % (20.0-44.0); MEAN CORPUSCULAR HGB CONC 33 g/dl (31.0-36.0); MEAN CORPUSCULAR VOLUME 77 fL (82-100); MONOCYTES # (AUTO) 0.9 K/uL (0.1-1.30); MONOCYTES % (AUTO) 10.1 % (2.0-12.0); NEUTROPHILS # (AUTO) 6.6 K/uL (1.8-8.9); NEUTROPHILS % (AUTO) 71.2 % (43.0-81.0); PLATELET COUNT (AUTO) 453 K/uL (150-450); RED BLOOD CELL COUNT(AUTO) 4.14 MIL/uL (4.0-5.2); WHITE BLOOD COUNT (AUTO) 9.3 K/uL (4.3-11.0)
--- NOTE | 2022-05-10 07:41 | NUR ---
TRANSMISSION ENGINEER NOTES RECEIVED PATIENT AWAKE IN BED, GEORGIAN SPEAKING, A/OX4 IN ROOM AIR, TOLERATING WELL, BREATHING EVEN AND UNLABORED,ABLE TO VERBALIZED NEEDS, DENIES PAIN OR ANY DISCOMFORTS. IV ACCESS ON LAC 20G SL, INTACT AND PATENT. SAFETY MEASURES IN PLACE: BED IN LOWEST LOCKED POSITION, SIDE RAILS UP X2, ADVISED TO USE CALL LIGHT WHEN IN NEED OF ASSISTANCE, TRAY TABLE W/I EASY REACH OF PATIENT. WILL CONTINUE TO MONITOR PATIENT.
[2022-05-10 07:51] LABS: CALCIUM, SERUM 8.6 mg/dL (8.5-10.1); MAGNESIUM 2.2 mg/dL (1.8-2.4); PHOSPHORUS 3.8 mg/dL (2.5-4.9); POTASSIUM 3.4 mmol/L (3.5-5.1)
[2022-05-10 08:24] LABS: IRON, SERUM 19 ug/dl (50-175); TOTAL IRON BINDING CAPACITY 251 ug/dl (250-450)
[2022-05-10] MEDS: LINAGLIPTIN 5 MG TABLET PO SCH (08:49)
[2022-05-10] MEDS: glipiZIDE XL 10 MG TAB.OSM.24 PO SCH (08:49)
[2022-05-10 08:50] VITALS: BP 106/58
[2022-05-10] MEDS: DOCUSATE SODIUM 100 MG CAPSULE PO SCH (08:50)
[2022-05-10] MEDS: PROPRANOLOL HCL 10 MG TABLET PO SCH (08:50)
[2022-05-10] MEDS: METFORMIN 500 MG TABLET PO SCH (08:51)
[2022-05-10] MEDS: EMPAGLIFLOZIN 25 MG TABLET PO SCH (08:53)
[2022-05-10] MEDS ORDERED: ASPIRIN 81 MG TAB.CHEW PO SCH (09:00)
[2022-05-10 09:36] LABS: FERRITIN 80 ng/mL (8-388)
[2022-05-10] MEDS ORDERED: POTASSIUM CHLORIDE 20 MEQ TAB.PRT.SR PO ONE (10:00)
--- NOTE | 2022-05-10 10:04 | NUR ---
RN NOTES PT NOTED WITH LOW LEVEL POTASSIUM 3.4 TODAY. ADMINISTERED K-DUR 2O MEQ TAB X1 ORDERED.
[2022-05-10] MEDS ORDERED: FURO40TA5 PO (13:04)
[2022-05-10] MEDS ORDERED: SPIR100T5 PO (13:04)
[2022-05-10] MEDS ORDERED: CHOL100043 PO (13:04)
[2022-05-10] MEDS ORDERED: FERR325T23 PO (13:54)
[2022-05-10] MEDS ORDERED: ATOR10TA PO (13:54)
--- NOTE | 2022-05-10 15:01 | NUR ---
RN DISCHARGED NOTES PT DISCHARGED HOME IN STABLE CONDITION. A/O X4. ANDORRAN SPEAKING.UNDERSTAND MINIMAL FRENCH. ABLE TO MAKE NEEDS KNOWN. ON ROOM AIR, TOLERATING WELL, NO SOB NOTED. NO SKIN ISSUES NOTED. ALL BELONGINGS ACCOUNTED FOR AND PT SIGNED BELONGINGS LIST. IV ACCESS ON LAC G#20 REMOVED WITH NO ACTIVE BLEEDING NOTED, DRY DRESSING APPLIED AT SITE. HEALTH TEACHINGS/DISCHARGE INSTRUCTIONS GIVEN TO PT WITH ANDORRAN SPEAKING STAFF TO TRANSLATE., VERBALIZED UNDERSTANDING. NAME ARMBAND REMOVED. PT LEFT UNIT @ 1455 AMBULATORY ACCOMPANIED BY PRACHI Amador CHARGE NURSE AWARE OF D/C.
== END 2022-05-10 15:00 | disposition home or self-care (01) | DRG 206 ==
LOC: ER 06:28 → TELE 08:42 → MED 05-10 11:58
PROVIDERS: ADMIT Nurse Practitioner Acute Care; ATTEND Registered Nurse
DX: M94.0 Chondrocostal junction syndrome [Tietze] (principal); D68.59 Other primary thrombophilia; E44.1 Mild protein-calorie malnutrition; D69.59 Other secondary thrombocytopenia; Z20.822 Contact with and (suspected) exposure to COVID-19; E11.9 Type 2 diabetes mellitus without complications; I10 Essential (primary) hypertension; K74.60 Unspecified cirrhosis of liver; Z79.84 Long term (current) use of oral hypoglycemic drugs; Z79.899 Other long term (current) drug therapy; E78.5 Hyperlipidemia, unspecified; Z87.891 Personal history of nicotine dependence; F41.9 Anxiety disorder, unspecified; D69.6 Thrombocytopenia, unspecified; K76.9 Liver disease, unspecified; E88.09 Other disorders of plasma-protein metabolism, not elsewhere classified; E66.01 Morbid (severe) obesity due to excess calories; Z68.32 Body mass index [BMI] 32.0-32.9, adult
CPT/HCPCS: 36415; 71045-TC; 80048-TC; 80061-TC; 80076-TC; 82728-TC; 82962-TC; 83540-TC; 83735-TC; 84100-TC; 84484-TC; 85025-TC; 85378-TC; 85730-TC; 87081-TC; 93970-TC; 93971-TC; C9803; G0378

== ENCOUNTER 2022-07-28 17:21 | Emergency (ER) | payer MEDICARE, OTHER ==
[~2022-07-28] VITALS: Ht 162.6 cm; Wt 99.8 kg
[~2022-07-28 17:21] MED LIST changes: +ATOR10TA PO; +CHOL100043 PO; -DOCU-141 PO; +FERR325T23 PO; +FURO40TA5 PO; -HYDR-4209 PO; -PROP10TA68 PO; -SITA100T PO; +SPIR100T5 PO
--- NOTE | 2022-07-28 17:40 | NUR ---
FEVER, HEADACHE, N/V/D X 2 DAYS.
--- NOTE | 2022-07-28 17:46 | NUR ---
IV LINE IS ESTABLISHED, BLOOD SPECIMEN COLLECTED AND SENT TO THE LAB. THE LINE IS SALINE LOCKED.
[2022-07-28] MEDS ORDERED: ONDANSETRON HCL/PF 4 MG/2 ML VIAL ONE (18:12)
[2022-07-28] MEDS ORDERED: MORPHINE SULFATE INJ 4 MG/ML DISP.SYRIN ONE (18:13)
[2022-07-28 18:16] LABS: BASOPHILS # (AUTO) 0.1 K/uL (0.0-0.2); BASOPHILS % (AUTO) 0.6 % (0.0-2.0); EOSINOPHILS % (AUTO) 21.8 % (0.0-6.0); HEMATOCRIT 41 % (33-45); HEMOGLOBIN 13.3 g/dL (11.5-14.8); LYMPHOCYTES # (AUTO) 2.7 K/uL (0.8-4.8); LYMPHOCYTES % (AUTO) 23.1 % (20.0-44.0); MEAN CORPUSCULAR HGB CONC 33 g/dl (31.0-36.0); MEAN CORPUSCULAR VOLUME 90 fL (82-100); MONOCYTES # (AUTO) 0.8 K/uL (0.1-1.30); MONOCYTES % (AUTO) 6.9 % (2.0-12.0); NEUTROPHILS # (AUTO) 5.6 K/uL (1.8-8.9); NEUTROPHILS % (AUTO) 47.6 % (43.0-81.0); PLATELET COUNT (AUTO) 72 K/uL (150-450); RED BLOOD CELL COUNT(AUTO) 4.52 MIL/uL (4.0-5.2); WHITE BLOOD COUNT (AUTO) 11.8 K/uL (4.3-11.0)
--- NOTE | 2022-07-28 18:22 | NUR ---
URINE COLLECTED AND SENT TO THE LAB
[2022-07-28] MEDS ORDERED: IV NS 0.9% 1,000 ML BAG IV ONE (18:30)
[2022-07-28] MEDS ORDERED: MORPHINE SULFATE INJ 2 MG/ML DISP.SYRIN IV ONE (18:30)
[2022-07-28] MEDS ORDERED: ONDANSETRON HCL/PF 4 MG/2 ML VIAL IVP ONE (18:30)
[2022-07-28 18:36] LABS: CALCIUM, SERUM 9.5 mg/dL (8.5-10.1); CREATININE 1.2 mg/dL (0.6-1.3); POTASSIUM 4.4 mmol/L (3.5-5.1)
[2022-07-28 18:41] LABS: ALBUMIN 3.6 g/dL (3.4-5.0); BILIRUBIN,DIRECT 0.4 mg/dL (0.0-0.2); BILIRUBIN,TOTAL 0.9 mg/dL (0.2-1.0); TOTAL PROTEIN, SERUM 8.2 g/dL (6.4-8.2)
[2022-07-28] MEDS ORDERED: IV NS 0.9% 250 ML IV ONE (19:08)
[2022-07-28] MEDS ORDERED: IOHEXOL-300 100 ML VIAL IV ONE (19:08)
[2022-07-28 19:23] LABS: BILIRUBIN,URINE NEGATIVE (NEGATIVE); COLOR,URINE YELLOW (YELLOW); LEUKOCYTE ESTERASE ,URINE TRACE (NEGATIVE); NITRITE, URINE NEGATIVE (NEGATIVE); PROTEIN,URINE NEGATIVE (NEGATIVE); UGLUCOSE NEGATIVE (NEGATIVE)
--- NOTE | 2022-07-28 19:25 | NUR ---
RECEIVED PT AWAKE, CAME EARLIER WITH CC OF DIARRHEA. WITH IV JAMEEL ON LEFT AC G20. PT AOX4. ABLE TO MAKE NEEDS KNOWN. VITALS CHECKED.
--- NOTE | 2022-07-28 19:30 | NUR ---
BROUGHT TO CT DEPT
[2022-07-28 20:36] LABS: BACTERIA,URINE 1+ /HPF (None Seen)
[2022-07-28] MEDS ORDERED: METR500T PO (21:06)
[2022-07-28] MEDS ORDERED: CIPR-262 PO (21:06)
--- NOTE | 2022-07-28 21:30 | NUR ---
IV JAMEEL REMOVED
[2022-07-28 21:43] LABS: EOSINOPHILS % (MANUAL) 19 % (0-4); LYMPHOCYTES % (MANUAL) 22 % (16-48); MONOCYTES % (MANUAL) 6 % (0-11.0); NEUTROPHILS % (MANUAL) 53 (42-76)
--- NOTE | 2022-07-28 23:13 | NUR ---
Patient discharged to home in stable condition. Written and verbal after care instructions given. Patient verbalizes understanding of instruction.
[2022-07-28 23:20] VITALS: BP 124/91
== END 2022-07-28 23:21 | disposition home or self-care (01) ==
LOC: ER 17:29
DX: K57.32 Diverticulitis of large intestine without perforation or abscess without bleeding (principal); R10.13 Epigastric pain; R11.2 Nausea with vomiting, unspecified; I10 Essential (primary) hypertension; E11.9 Type 2 diabetes mellitus without complications; Z79.899 Other long term (current) drug therapy
CPT/HCPCS: 99285; 74177; 96374; 96361; 96375; 85025; 80048; 83690; 80076; 81001; 36415; 85007; J2270; J2405; J7030; J7050; Q9967

== ENCOUNTER 2023-01-15 17:05 | Emergency (ER) | payer BC, MEDICAID ==
[~2023-01-15] VITALS: Ht 162.6 cm; Wt 90.3 kg
[~2023-01-15 17:05] MED LIST changes: +CIPR-262 PO; +METR500T PO; +ONDA4TAB11 PO
[2023-01-15] MEDS ORDERED: ONDANSETRON HCL/PF 4 MG/2 ML VIAL ONE (18:44)
[2023-01-15] MEDS ORDERED: MORPHINE SULFATE INJ 4 MG/ML DISP.SYRIN ONE (18:45)
[2023-01-15] MEDS ORDERED: IV NS 0.9% 1,000 ML BAG IV ONE (19:00)
[2023-01-15] MEDS ORDERED: ONDANSETRON HCL/PF 4 MG/2 ML VIAL IVP ONE (19:00)
[2023-01-15] MEDS ORDERED: MORPHINE SULFATE INJ 2 MG/ML DISP.SYRIN IV ONE (19:00)
[2023-01-15 19:32] LABS: BASOPHILS % (AUTO) 0.5 % (0.0-2.0); HEMATOCRIT 40 % (33-45); HEMOGLOBIN 13.2 g/dL (11.5-14.8); LYMPHOCYTES # (AUTO) 1.6 K/uL (0.8-4.8); LYMPHOCYTES % (AUTO) 17.7 % (20.0-44.0); MEAN CORPUSCULAR HEMOGLOBIN 31 PG (26.0-33.0); MEAN CORPUSCULAR HGB CONC 33 g/dl (31.0-36.0); MEAN CORPUSCULAR VOLUME 92 fL (82-100); MONOCYTES # (AUTO) 0.5 K/uL (0.1-1.30); MONOCYTES % (AUTO) 5.8 % (2.0-12.0); NEUTROPHILS # (AUTO) 4.8 K/uL (1.8-8.9); PLATELET COUNT (AUTO) 62 K/uL (150-450); RED BLOOD CELL COUNT(AUTO) 4.32 MIL/uL (4.0-5.2); RED CELL DISTRIBUTION WIDTH 13.9 % (11.5-15.0); WHITE BLOOD COUNT (AUTO) 8.9 K/uL (4.3-11.0)
[2023-01-15 19:43] LABS: CALCIUM, SERUM 9.3 mg/dL (8.5-10.1); CARBON DIOXIDE 24 mmol/L (21-32); CHLORIDE 102 mmol/L (98-107); CREATININE 0.9 mg/dL (0.6-1.3); GLUCOSE 139 mg/dL (74-106); POTASSIUM 4.3 mmol/L (3.5-5.1); SODIUM SERUM 135 mmol/L (136-145); UREA NITROGEN, BLOOD 19 mg/dL (7-18)
[2023-01-15 19:49] LABS: ALANINE AMINOTRANSFERASE 44 U/L (12-78); ALBUMIN 3.5 g/dL (3.4-5.0); ALKALINE PHOSPHATASE 262 U/L (46-116); ASPARTATE AMINOTRANSFERASE 54 U/L (15-37); BILIRUBIN,DIRECT 0.3 mg/dL (0.0-0.2); BILIRUBIN,TOTAL 0.6 mg/dL (0.2-1.0); LIPASE 24 U/L (16-77)
[2023-01-15 20:10] LABS: LACTIC ACID 3.8 mmol/L (0.4-2.0)
[2023-01-15 20:56] LABS: APPEARANCE,URINE SLIGHTLY CLOUDY (CLEAR); COLOR,URINE YELLOW (YELLOW)
[2023-01-15 20:57] LABS: BILIRUBIN,URINE NEGATIVE (NEGATIVE); KETONES,URINE NEGATIVE (NEGATIVE); UGLUCOSE 1000 MG/DL mg/dL (NEGATIVE)
[2023-01-15 20:58] LABS: BLOOD, URINE NEGATIVE Ery/uL (NEGATIVE); LEUKOCYTE ESTERASE ,URINE NEGATIVE (NEGATIVE); NITRITE, URINE NEGATIVE (NEGATIVE); PROTEIN,URINE TRACE mg/dl (NEGATIVE); UROBILINOGEN,URINE 0.2 EU/dL (0.2)
[2023-01-15 21:14] LABS: RBC,URINE 0-2 /HPF (0-2)
[2023-01-15 21:15] LABS: ADD URINE CULTURE NO; BACTERIA,URINE 1+ /HPF (None Seen); SQUAMOUS EPITHELIAL CELL,UR Moderate /HPF (None Seen); WBC,URINE 0-2 /HPF (0-3)
[2023-01-15] MEDS ORDERED: KETOROLAC TROMETHAMINE 15 MG/ML VIAL ONE (21:17)
[2023-01-15] MEDS ORDERED: IBUP-1955 PO (21:18)
[2023-01-15] MEDS ORDERED: ONDA4TAB11 PO (21:18)
[2023-01-15] MEDS ORDERED: KETOROLAC TROMETHAMINE 15 MG/ML VIAL IV ONE (21:30)
[2023-01-15 21:41] VITALS: BP 156/75; TEMP 98.2; O2SAT 96
[2023-01-15 22:41] LABS: BAND % (MANUAL) 1 % (0.0-5.0); EOSINOPHILS % (MANUAL) 24 % (0-4); LYMPHOCYTES % (MANUAL) 20 % (16-48); MONOCYTES % (MANUAL) 8 % (0-11.0); NEUTROPHILS % (MANUAL) 47 (42-76)
[2023-01-15 22:42] LABS: PLATELET ESTIMATE DECREASED
== END 2023-01-15 21:42 | disposition home or self-care (01) ==
LOC: ER 17:19
DX: R10.32 Left lower quadrant pain (principal); R05.9 Cough, unspecified; R11.10 Vomiting, unspecified; I10 Essential (primary) hypertension; E11.9 Type 2 diabetes mellitus without complications; Z79.84 Long term (current) use of oral hypoglycemic drugs; Z79.899 Other long term (current) drug therapy; Z20.822 Contact with and (suspected) exposure to COVID-19
CPT/HCPCS: 99285; 74176; 96374; 71045; 96375; 96361; 87426; 93005; 87804 ×2; 85025; 80048; 87040 ×2; 83605; 83690; 80076; 81001; 36415; 84484; 85007; J2270; J2405; J7030; J1885; C9803

== ENCOUNTER 2023-05-21 19:41 | Emergency (ER) | payer BC, MEDICAID ==
[~2023-05-21] VITALS: Ht 162.6 cm; Wt 90.7 kg
[~2023-05-21 19:41] MED LIST changes: +IBUP-1955 PO
[2023-05-21 20:17] VITALS: TEMP 98.8
[2023-05-21 20:52] LABS: EOSINOPHILS # (AUTO) 1.2 K/uL (0.0-0.7); EOSINOPHILS % (AUTO) 13.5 % (0.0-6.0); HEMATOCRIT 39 % (33-45); HEMOGLOBIN 13.2 g/dL (11.5-14.8); LYMPHOCYTES # (AUTO) 1.2 K/uL (0.8-4.8); LYMPHOCYTES % (AUTO) 13.2 % (20.0-44.0); MEAN CORPUSCULAR HEMOGLOBIN 32 PG (26.0-33.0); MEAN CORPUSCULAR HGB CONC 34 g/dl (31.0-36.0); MEAN CORPUSCULAR VOLUME 93 fL (82-100); MONOCYTES # (AUTO) 0.3 K/uL (0.1-1.30); MONOCYTES % (AUTO) 3.4 % (2.0-12.0); NEUTROPHILS # (AUTO) 6.4 K/uL (1.8-8.9); NEUTROPHILS % (AUTO) 69.9 % (43.0-81.0); PLATELET COUNT (AUTO) 52 K/uL (150-450); RED BLOOD CELL COUNT(AUTO) 4.18 MIL/uL (4.0-5.2); RED CELL DISTRIBUTION WIDTH 14.1 % (11.5-15.0); WHITE BLOOD COUNT (AUTO) 9.1 K/uL (4.3-11.0)
[2023-05-21 20:59] LABS: CALCIUM, SERUM 8.9 mg/dL (8.5-10.1); CREATININE 1.2 mg/dL (0.6-1.3); POTASSIUM 3.9 mmol/L (3.5-5.1)
[2023-05-21 21:04] LABS: ALBUMIN 2.9 g/dL (3.4-5.0); BILIRUBIN,DIRECT 0.3 mg/dL (0.0-0.2); BILIRUBIN,TOTAL 0.7 mg/dL (0.2-1.0); TOTAL PROTEIN, SERUM 7.4 g/dL (6.4-8.2)
[2023-05-21 21:26] LABS: APPEARANCE,URINE CLEAR (CLEAR); BILIRUBIN,URINE NEGATIVE (NEGATIVE); BLOOD, URINE TRACE-INTA Ery/uL (NEGATIVE); COLOR,URINE YELLOW (YELLOW); KETONES,URINE NEGATIVE (NEGATIVE); LEUKOCYTE ESTERASE ,URINE NEGATIVE (NEGATIVE); NITRITE, URINE NEGATIVE (NEGATIVE); PROTEIN,URINE NEGATIVE (NEGATIVE); UGLUCOSE 3+ mg/dL (NEGATIVE)
[2023-05-21] MEDS ORDERED: ONDANSETRON HCL/PF 4 MG/2 ML VIAL ONE (21:26)
[2023-05-21] MEDS ORDERED: MORPHINE SULFATE INJ 4 MG/ML DISP.SYRIN ONE (21:27)
[2023-05-21] MEDS: ONDANSETRON HCL/PF 4 MG/2 ML VIAL IVP ONE (21:31)
[2023-05-21] MEDS: MORPHINE SULFATE INJ 2 MG/ML DISP.SYRIN IV ONE (21:31)
[2023-05-21 21:34] LABS: ADD URINE CULTURE NO; BACTERIA,URINE 0 /HPF (None Seen); HYALINE CASTS, URINE Few /LPF (None Seen); WBC,URINE 0-2 /HPF (0-3)
[2023-05-21 22:41] LABS: BASOPHILS % (MANUAL) 0 % (0.0-2.0); EOSINOPHILS % (MANUAL) 28 % (0-4); LYMPHOCYTES % (MANUAL) 20 % (16-48); MONOCYTES % (MANUAL) 6 % (0-11.0); NEUTROPHILS % (MANUAL) 46 (42-76)
[2023-05-21 22:42] LABS: PLATELET ESTIMATE DECREASED
[2023-05-21] MEDS ORDERED: HYDR-500 PO (23:01)
[2023-05-21] MEDS: hydrOXYzine 10 MG TABLET PO ONE (23:15)
[2023-05-21 23:16] VITALS: BP 142/71; O2SAT 100
== END 2023-05-21 23:16 | disposition home or self-care (01) ==
LOC: ER 19:43
DX: K57.30 Diverticulosis of large intestine without perforation or abscess without bleeding (principal); R10.32 Left lower quadrant pain; D69.6 Thrombocytopenia, unspecified; L29.9 Pruritus, unspecified; R11.2 Nausea with vomiting, unspecified; I10 Essential (primary) hypertension; E11.9 Type 2 diabetes mellitus without complications; F41.9 Anxiety disorder, unspecified; Z79.84 Long term (current) use of oral hypoglycemic drugs; Z79.899 Other long term (current) drug therapy
CPT/HCPCS: 99285; 74176; 96374; 96375; 85025; 80048; 87086; 83690; 80076; 81001; 36415; 82962; 85007; Q0177; J2270; J2405

== ENCOUNTER 2024-06-05 21:06 | Emergency (ER) | payer MEDICARE, OTHER ==
[~2024-06-05] VITALS: Ht 162.6 cm; Wt 90.7 kg
[~2024-06-05 21:06] MED LIST changes: +HYDR-500 PO
[2024-06-05] MEDS: ONDANSETRON HCL/PF 4 MG/2 ML VIAL IVP ONE (22:30)
[2024-06-05] MEDS: IV NS 0.9% 1,000 ML BAG IV ONE (22:30)
[2024-06-05 22:44] LABS: BASOPHILS % (AUTO) 0.7 % (0.0-2.0); EOSINOPHILS # (AUTO) 0.1 K/uL (0.0-0.7); EOSINOPHILS % (AUTO) 3.3 % (0.0-6.0); HEMATOCRIT 38 % (33-45); HEMOGLOBIN 13.1 g/dL (11.5-14.8); LYMPHOCYTES # (AUTO) 0.9 K/uL (0.8-4.8); LYMPHOCYTES % (AUTO) 25.9 % (20.0-44.0); MEAN CORPUSCULAR HEMOGLOBIN 29 PG (26.0-33.0); MEAN CORPUSCULAR HGB CONC 34 g/dl (31.0-36.0); MEAN CORPUSCULAR VOLUME 86 fL (82-100); MONOCYTES # (AUTO) 0.3 K/uL (0.1-1.30); MONOCYTES % (AUTO) 9.4 % (2.0-12.0); NEUTROPHILS # (AUTO) 2.1 K/uL (1.8-8.9); NEUTROPHILS % (AUTO) 60.7 % (43.0-81.0); RED BLOOD CELL COUNT(AUTO) 4.44 MIL/uL (4.0-5.2); WHITE BLOOD COUNT (AUTO) 3.5 K/uL (4.3-11.0)
[2024-06-05 22:47] LABS: PLATELET COUNT (AUTO) 44 K/uL (150-450)
[2024-06-05] MEDS ORDERED: ONDANSETRON HCL/PF 4 MG/2 ML VIAL ONE (22:52)
[2024-06-05 22:54] LABS: CARBON DIOXIDE 25 mmol/L (21-32); CHLORIDE 108 mmol/L (98-107); POTASSIUM 3.8 mmol/L (3.5-5.1); SODIUM SERUM 142 mmol/L (136-145)
[2024-06-05 23:12] LABS: ALANINE AMINOTRANSFERASE 46 U/L (12-78); ALKALINE PHOSPHATASE 226 U/L (46-116); ASPARTATE AMINOTRANSFERASE 5 U/L (15-37); CALCIUM, SERUM 9.1 mg/dL (8.5-10.1); CREATININE 0.7 mg/dL (0.6-1.3); GLUCOSE 124 mg/dL (74-106); TOTAL PROTEIN, SERUM 6.8 g/dL (6.4-8.2); UREA NITROGEN, BLOOD 14 mg/dL (7-18)
[2024-06-05 23:21] LABS: ALBUMIN 3.1 g/dL (3.4-5.0); BILIRUBIN,DIRECT 0.4 mg/dL (0.0-0.2); LIPASE 23 U/L (16-77)
[2024-06-06] MEDS ORDERED: IBUP-1955 PO (00:48)
[2024-06-06 01:51] VITALS: BP 125/59; TEMP 98.5; O2SAT 98
[2024-06-06 02:03] LABS: ANISOCYTOSIS 1+; BASOPHILS % (MANUAL) 0 % (0.0-2.0); EOSINOPHILS % (MANUAL) 2 % (0-4); LYMPHOCYTES % (MANUAL) 21 % (16-48); MONOCYTES % (MANUAL) 11 % (0-11.0); NEUTROPHILS % (MANUAL) 66 (42-76); PLATELET ESTIMATE DECREASED
== END 2024-06-06 01:51 | disposition home or self-care (01) ==
LOC: ER 21:14
DX: J06.9 Acute upper respiratory infection, unspecified (principal); B97.89 Other viral agents as the cause of diseases classified elsewhere; I10 Essential (primary) hypertension; E11.9 Type 2 diabetes mellitus without complications; F41.9 Anxiety disorder, unspecified; K74.60 Unspecified cirrhosis of liver; Z79.84 Long term (current) use of oral hypoglycemic drugs; Z79.899 Other long term (current) drug therapy; Z20.822 Contact with and (suspected) exposure to COVID-19
CPT/HCPCS: 99285; 96374; 71045; 96361; 87426; 93005; 87804 ×2; 85025; 80048; 87070; 83690; 80076; 36415; 87880; 84484 ×2; 85007; J2405; 86403-TC

== ENCOUNTER 2024-07-03 21:09 | Emergency (ER) | payer MEDICARE, OTHER ==
[~2024-07-03] VITALS: Ht 162.6 cm; Wt 106.6 kg
[2024-07-03] MEDS ORDERED: ONDANSETRON HCL/PF 4 MG/2 ML VIAL ONE (22:55)
[2024-07-03] MEDS ORDERED: MORPHINE SULFATE INJ 4 MG/ML DISP.SYRIN ONE (22:55)
[2024-07-03] MEDS: IV NS 0.9% 1,000 ML BAG IV ONE (23:02)
[2024-07-03] MEDS: MORPHINE SULFATE INJ 2 MG/ML DISP.SYRIN IV ONE (23:02)
[2024-07-03] MEDS: ONDANSETRON HCL/PF 4 MG/2 ML VIAL IVP ONE (23:03)
[2024-07-03 23:09] LABS: BASOPHILS % (AUTO) 0.7 % (0.0-2.0); EOSINOPHILS # (AUTO) 0.2 K/uL (0.0-0.7); EOSINOPHILS % (AUTO) 2.3 % (0.0-6.0); HEMATOCRIT 43 % (33-45); HEMOGLOBIN 14.2 g/dL (11.5-14.8); LYMPHOCYTES # (AUTO) 1.6 K/uL (0.8-4.8); LYMPHOCYTES % (AUTO) 21.8 % (20.0-44.0); MEAN CORPUSCULAR HEMOGLOBIN 29 PG (26.0-33.0); MEAN CORPUSCULAR HGB CONC 33 g/dl (31.0-36.0); MEAN CORPUSCULAR VOLUME 87 fL (82-100); MONOCYTES # (AUTO) 0.7 K/uL (0.1-1.30); MONOCYTES % (AUTO) 9.7 % (2.0-12.0); NEUTROPHILS # (AUTO) 4.7 K/uL (1.8-8.9); NEUTROPHILS % (AUTO) 65.5 % (43.0-81.0); PLATELET COUNT (AUTO) 52 K/uL (150-450); RED BLOOD CELL COUNT(AUTO) 4.89 MIL/uL (4.0-5.2); RED CELL DISTRIBUTION WIDTH 16.2 % (11.5-15.0); WHITE BLOOD COUNT (AUTO) 7.1 K/uL (4.3-11.0)
[2024-07-03 23:20] LABS: INR 1.09 (0.91-1.10); PARTIAL THROMBOPLASTIN TIME 27.6 SEC (24.3-34.3); PROTHROMBIN TIME 11.5 SECS (9.2-11.1)
[2024-07-03 23:21] LABS: ALANINE AMINOTRANSFERASE 46 U/L (12-78); ALBUMIN 3.3 g/dL (3.4-5.0); ALKALINE PHOSPHATASE 273 U/L (46-116); ASPARTATE AMINOTRANSFERASE 62 U/L (15-37); BILIRUBIN,DIRECT 0.5 mg/dL (0.0-0.2); BILIRUBIN,TOTAL 1.2 mg/dL (0.2-1.0); CALCIUM, SERUM 9.4 mg/dL (8.5-10.1); CARBON DIOXIDE 27 mmol/L (21-32); CHLORIDE 103 mmol/L (98-107); CREATININE 1.2 mg/dL (0.6-1.3); GLUCOSE 164 mg/dL (74-106); LIPASE 23 U/L (16-77); POTASSIUM 3.8 mmol/L (3.5-5.1); SODIUM SERUM 139 mmol/L (136-145); TOTAL PROTEIN, SERUM 7.8 g/dL (6.4-8.2); UREA NITROGEN, BLOOD 22 mg/dL (7-18)
[2024-07-03 23:59] LABS: APPEARANCE,URINE CLEAR (CLEAR); BILIRUBIN,URINE NEGATIVE (NEGATIVE); BLOOD, URINE TRACE-INTA Ery/uL (NEGATIVE); COLOR,URINE YELLOW (YELLOW); KETONES,URINE TRACE mg/dL (NEGATIVE); LEUKOCYTE ESTERASE ,URINE NEGATIVE (NEGATIVE); NITRITE, URINE NEGATIVE (NEGATIVE); PROTEIN,URINE NEGATIVE (NEGATIVE); UGLUCOSE 3+ mg/dL (NEGATIVE)
[2024-07-04 00:01] LABS: ADD URINE CULTURE NO; BACTERIA,URINE Rare /HPF (None Seen); SQUAMOUS EPITHELIAL CELL,UR Few /HPF (None Seen); WBC,URINE 0-2 /HPF (0-3)
[2024-07-04 00:08] LABS: ANISOCYTOSIS 1+; BASOPHILS % (MANUAL) 0 % (0.0-2.0); EOSINOPHILS % (MANUAL) 2 % (0-4); LYMPHOCYTES % (MANUAL) 19 % (16-48); MONOCYTES % (MANUAL) 11 % (0-11.0); NEUTROPHILS % (MANUAL) 68 (42-76); PLATELET ESTIMATE DECREASED
[2024-07-04] MEDS ORDERED: PANT40TA2 PO (00:28)
[2024-07-04 01:07] VITALS: BP 139/80; TEMP 98.2; O2SAT 98
== END 2024-07-04 01:07 | disposition home or self-care (01) ==
LOC: ER 21:13
DX: K20.90 Esophagitis, unspecified without bleeding (principal); K74.60 Unspecified cirrhosis of liver; I10 Essential (primary) hypertension; E11.9 Type 2 diabetes mellitus without complications; F41.9 Anxiety disorder, unspecified; Z79.84 Long term (current) use of oral hypoglycemic drugs; Z79.899 Other long term (current) drug therapy
CPT/HCPCS: 99285; 74176; 96374; 71045; 96361; 96375; 93005; 85025; 80048; 83690; 80076; 81001; 36415; 84484; 85730; J2270; J2405; J7030

== ENCOUNTER 2024-09-14 11:41 | Emergency (ER) | payer MEDICARE, OTHER ==
[~2024-09-14] VITALS: Ht 162.6 cm; Wt 93.4 kg
[~2024-09-14 11:41] MED LIST changes: +PANT40TA2 PO
[2024-09-14 13:17] LABS: RED BLOOD CELL COUNT(AUTO) 4.87 MIL/uL (4.0-5.2); RED CELL DISTRIBUTION WIDTH 14.9 % (11.5-15.0); WHITE BLOOD COUNT (AUTO) 4.3 K/uL (4.3-11.0)
[2024-09-14 13:21] LABS: CALCIUM, SERUM 9.0 mg/dL (8.5-10.1); CREATININE 0.8 mg/dL (0.6-1.3); SODIUM SERUM 138.0 mmol/L (136-145); UREA NITROGEN, BLOOD 21.0 mg/dL (7-18)
[2024-09-14 13:27] LABS: ASPARTATE AMINOTRANSFERASE 85.0 U/L (15-37); TOTAL PROTEIN, SERUM 7.5 g/dL (6.4-8.2)
[2024-09-14 13:32] LABS: PLATELET COUNT (AUTO) 44 K/uL (150-450)
[2024-09-14] MEDS ORDERED: ONDANSETRON 4 MG TAB.RAPDIS ONE (14:41)
[2024-09-14] MEDS ORDERED: LIDOCAINE VISCOUS 2% UD 15 ML UDC ONE (14:41)
[2024-09-14] MEDS ORDERED: MAG HYDROX/AL HYDROX/SIMETH 30 ML UDC ONE (14:41)
[2024-09-14] MEDS: LIDOCAINE VISCOUS 2% UD 15 ML UDC MM ONE (14:50)
[2024-09-14] MEDS: ONDANSETRON 4 MG TAB.RAPDIS SL ONE (14:50)
[2024-09-14] MEDS: MAG HYDROX/AL HYDROX/SIMETH 30 ML UDC PO ONE (14:50)
[2024-09-14] MEDS ORDERED: ONDANSETRON HCL/PF 4 MG/2 ML VIAL ONE (14:54)
[2024-09-14 14:58] LABS: ASPARTATE AMINOTRANSFERASE 80.0 U/L (15-37); TOTAL PROTEIN, SERUM 7.0 g/dL (6.4-8.2)
[2024-09-14] MEDS: ONDANSETRON HCL/PF 4 MG/2 ML VIAL IV ONE (15:02)
[2024-09-14] MEDS ORDERED: PANTOPRAZOLE 40 MG VIAL ONE (15:04)
[2024-09-14] MEDS: PANTOPRAZOLE 40 MG VIAL IV ONE (15:11)
[2024-09-14] MEDS: PANTOPRAZOLE 80 MG in IV NS 0.9% 500 ML IV ONE (15:12)
[2024-09-14] MEDS ORDERED: PANT40TA2 PO (15:19)
[2024-09-14] MEDS ORDERED: ONDA4TAB11 PO (15:19)
[2024-09-14 15:51] LABS: APPEARANCE,URINE CLEAR (CLEAR); BLOOD, URINE TRACE-INTA Ery/uL (NEGATIVE); LEUKOCYTE ESTERASE ,URINE TRACE (NEGATIVE); NITRITE, URINE NEGATIVE (NEGATIVE); UGLUCOSE NEGATIVE (NEGATIVE)
[2024-09-14 15:57] VITALS: BP 140/70; TEMP 98.1; O2SAT 99
[2024-09-14 16:05] LABS: ADD URINE CULTURE NO
[2024-09-14 16:34] LABS: NEUTROPHILS % (MANUAL) 70 (42-76)
[2024-09-14 16:35] LABS: EOSINOPHILS % (MANUAL) 1 % (0-4); LYMPHOCYTES % (MANUAL) 20 % (16-48); MONOCYTES % (MANUAL) 9 % (0-11.0); PLATELET ESTIMATE GIANT PLATELET SEEN
== END 2024-09-14 15:50 | disposition home or self-care (01) ==
LOC: ER 11:46
DX: R10.13 Epigastric pain (principal); R10.12 Left upper quadrant pain; R10.32 Left lower quadrant pain; R11.0 Nausea; D69.6 Thrombocytopenia, unspecified; E11.9 Type 2 diabetes mellitus without complications; F41.9 Anxiety disorder, unspecified; G89.29 Other chronic pain; I10 Essential (primary) hypertension; Z79.84 Long term (current) use of oral hypoglycemic drugs; Z79.899 Other long term (current) drug therapy; Z86.79 Personal history of other diseases of the circulatory system; Z87.19 Personal history of other diseases of the digestive system
CPT/HCPCS: 99285; 74176; 96374; 96375; 85027; 80048; 87086; 83690 ×2; 85007; 81001; 36415; 80076 ×2; J2405; J2470; Q0162

== ENCOUNTER 2025-02-02 18:37 | Emergency (ER) | payer MEDICARE, OTHER ==
[~2025-02-02] VITALS: Ht 160 cm; Wt 90.7 kg
[2025-02-02] MEDS ORDERED: ONDANSETRON HCL/PF 4 MG/2 ML VIAL ONE (19:10)
[2025-02-02] MEDS ORDERED: LIDOCAINE 5% (PATCH) 1 EA PATCH TP ONE (19:10)
[2025-02-02] MEDS ORDERED: METHOCARBAMOL (500MG) 500 MG TABLET ONE ×2 (19:11→19:21)
[2025-02-02] MEDS ORDERED: MORPHINE SULFATE INJ 4 MG/ML DISP.SYRIN ONE ×2 (19:11→21:23)
[2025-02-02] MEDS ORDERED: ACETAMINOPHEN 325 MG TABLET ONE (19:11)
[2025-02-02 19:19] LABS: APPEARANCE,URINE SLIGHTLY CLOUDY (CLEAR); BLOOD, URINE 2+ Ery/uL (NEGATIVE); LEUKOCYTE ESTERASE ,URINE NEGATIVE (NEGATIVE); NITRITE, URINE NEGATIVE (NEGATIVE); UGLUCOSE 3+ mg/dL (NEGATIVE)
[2025-02-02 19:26] LABS: RED BLOOD CELL COUNT(AUTO) 4.72 MIL/uL (4.0-5.2); RED CELL DISTRIBUTION WIDTH 15.5 % (11.5-15.0); WHITE BLOOD COUNT (AUTO) 4.2 K/uL (4.3-11.0)
[2025-02-02] MEDS: MORPHINE SULFATE INJ 2 MG/ML DISP.SYRIN IV ONE (19:28)
[2025-02-02] MEDS: LIDOCAINE 5% (PATCH) 1 EA PATCH TP ONE (19:29)
[2025-02-02] MEDS: ACETAMINOPHEN 325 MG TABLET PO ONE (19:29)
[2025-02-02] MEDS: ONDANSETRON HCL/PF 4 MG/2 ML VIAL IV ONE (19:29)
[2025-02-02] MEDS: METHOCARBAMOL (750MG) 750 MG TABLET PO ONE (19:29)
[2025-02-02 19:31] LABS: CALCIUM, SERUM 8.2 mg/dL (8.5-10.1); CREATININE 0.7 mg/dL (0.6-1.3); SODIUM SERUM 143.0 mmol/L (136-145); UREA NITROGEN, BLOOD 14.0 mg/dL (7-18)
[2025-02-02 19:34] LABS: ADD URINE CULTURE YES; SQUAMOUS EPITHELIAL CELL,UR 21-50 /HPF (None Seen)
[2025-02-02 19:37] LABS: PLATELET COUNT (AUTO) 37 K/uL (150-450)
[2025-02-02 19:39] LABS: ASPARTATE AMINOTRANSFERASE 79.0 U/L (15-37); TOTAL PROTEIN, SERUM 7.3 g/dL (6.4-8.2)
[2025-02-02 20:46] LABS: LYMPHOCYTES % (MANUAL) 27 % (16-48); MONOCYTES % (MANUAL) 5 % (0-11.0); NEUTROPHILS % (MANUAL) 68 (42-76); PLATELET ESTIMATE DECREASED
[2025-02-02] MEDS ORDERED: CEPH500C2 PO (21:17)
[2025-02-02] MEDS ORDERED: LIDO30AD10 TP (21:17)
[2025-02-02] MEDS ORDERED: OXYC-128 PO (21:17)
[2025-02-02] MEDS ORDERED: CEPHALEXIN MONOHYDRATE 500 MG CAPSULE PO ONE ×2 (21:24→21:30)
[2025-02-02] MEDS ORDERED: MORPHINE SULFATE INJ 2 MG/ML DISP.SYRIN IV ONE (21:30)
[2025-02-02 21:33] VITALS: BP 150/62; TEMP 98.5; O2SAT 99
== END 2025-02-02 21:34 | disposition home or self-care (01) ==
LOC: ER 18:37
DX: M54.50 Low back pain, unspecified (principal); I11.9 Hypertensive heart disease without heart failure; K74.60 Unspecified cirrhosis of liver; F41.9 Anxiety disorder, unspecified; E11.9 Type 2 diabetes mellitus without complications; Z79.84 Long term (current) use of oral hypoglycemic drugs; Z79.899 Other long term (current) drug therapy
CPT/HCPCS: 99284; 96374; 96375; 85027; 80048; 83690; 80076; 85007; 81001; 36415; J2270 ×2; J2405; 87086-TC